=== PATIENT | female | born 1945 | race American Indian/Alaskan Native ===

== ENCOUNTER 2016-09-06 | Emergency (ER) | payer MEDICARE ==
[2016-09-06 00:30] VITALS: BP 130/60
--- NOTE | 2016-09-06 01:13 | EDM.PDOC ---
ED HPI Trauma - General Chief Complaint: Upper Extremity Injury/Pain Stated Complaint: LT WRIST PAIN Time Seen by Provider: 09/06/16 00:38 Source: Reports: Patient History Limitations: Reports: No limitations - History of Present Illness INITIAL COMMENTS - FREE TEXT/NARRATIVE: History of present illness: [71-year-old comes in after falling onto an outstretched left hand and arm and has an obvious deformity to her left wrist. No other injuries. I detect that smell of alcohol on her.] Review of systems: As per history of present illness and below otherwise all systems reviewed and negative. Past medical history: As per history of present illness and as reviewed below otherwise noncontributory. Surgical history: As per history of present illness and as reviewed below otherwise noncontributory. Family history: As per history of present illness and as reviewed below otherwise noncontributory. Physical exam: HEENT: Atraumatic, normocephalic, pupils reactive, negative for conjunctival pallor or scleral icterus, mucous membranes moist, throat clear, neck supple, nontender, trachea midline. Lungs: Clear to auscultation, breath sounds equal bilaterally Heart: S1S2, regular Abdomen: Soft, nondistended, nontender. Pelvis: Stable nontender. Genitourinary: Deferred. Rectal: Deferred. Extremities: The left wrist is swelling and appears deformed and is tender to palpation but distally she has CMS intact her fingers are pink and she moves them and has sensation. Neuro: Awake, alert, oriented. Cranial nerves II through XII unremarkable. Cerebellum unremarkable. Motor and sensory unremarkable throughout. Exam nonfocal. Diagnostics: [X-rays of the left wrist reveal a comminuted intra-articular fracture of the distal radius and also the ulna] Therapeutics: [] Impression: [Fracture left] Plan: [She's been splinted in put in a sling and she will be following up in the orthopedic clinic tomorrow we'll put her on the clinic sheet] Definitive disposition and diagnosis as appropriate pending reevaluation and review of above. 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: Psychiatric History: Reports: Depression - Infectious Disease History Infectious Disease History: Reports: Chicken pox - Past Surgical History Musculoskeletal Surgical History: Reports: Hip replacement Social & Family History - Tobacco Use Smoking Status *Q: Current Every Day Smoker Years of Tobacco use: 30 Packs/Tins Daily: 0.5 Second Hand Smoke Exposure: Yes - Caffeine Use Caffeine Use: Reports: Coffee - Alcohol Use Days Per Week of Alcohol Use: 0 Number of Drinks Per Day: 6 Total Drinks Per Week: 0 - Recreational Drug Use Recreational Drug Use: No Review of Systems - Review of Systems Review Of Systems: ROS reveals no pertinent complaints other than HPI. Trauma Exam - Physical Exam Exam: See Below Course - Vital Signs Last Recorded V/S: Last Vital Signs Temp 35.7 C 09/06/16 00:28 Pulse 60 09/06/16 00:28 Resp 14 09/06/16 00:28 BP 130/60 09/06/16 00:28 Pulse Ox 96 09/06/16 00:28 - Orders/Labs/Meds Orders: Active Orders 24 hr Category Date Time Status Wrist Comp Min 3V Lt [CR] Stat Exams 09/06/16 00:38 Taken Departure - Departure Time of Disposition: 01:12 Disposition: Home, Self-Care 01 Condition: good Clinical Impression: Fracture of left wrist Qualifiers: Encounter type: initial encounter Fracture type: closed Qualified Code(s): S62.102A - Fracture of unspecified carpal bone, left wrist, initial encounter for closed fracture Forms: ED Department Discharge Additional Instructions: Someone should call you tomorrow and get you into the orthopedic clinic who can receive definitive care for your fracture - My Orders Last 24 Hours: My Active Orders 09/06/16 00:38 Wrist Comp Min 3V Lt [CR] Stat - Assessment/Plan Last 24 Hours: My Active Orders 09/06/16 00:38 Wrist Comp Min 3V Lt [CR] Stat
--- NOTE | 2016-09-06 09:14 | CR ---
Intra-articular distal radius fracture. Mild dorsal angulation. Ulnar styloid process fracture with 2 fracture fragments. Chondrocalcinosis.
== END 2016-09-06 01:25 | disposition home or self-care (01) ==
LOC: JP.ED
DX: S62.102A Fracture of unspecified carpal bone, left wrist, initial encounter for closed fracture (principal); I10 Essential (primary) hypertension; F17.210 Nicotine dependence, cigarettes, uncomplicated; Z79.899 Other long term (current) drug therapy; Z91.048 Other nonmedicinal substance allergy status; Z96.649 Presence of unspecified artificial hip joint; W19.XXXA Unspecified fall, initial encounter
CPT/HCPCS: 73110-26-LT; 73110-LT; 99283; 99284

== ENCOUNTER 2016-12-30 17:36 | Emergency (ER) | payer MEDICARE ==
[2016-12-30 18:14] VITALS: BP 147/93
[2016-12-30] MEDS ORDERED: Sodium Chloride 0.9% 10 ML Syringe FLUSH PRN (19:19)
--- NOTE | 2016-12-30 19:27 | EDM.PDOC ---
ED HPI GENERAL MEDICAL PROBLEM - General Chief Complaint: Abdominal Pain Stated Complaint: ABD PAIN Time Seen by Provider: 12/30/16 19:00 Source of Information: Reports: Patient History Limitations: Reports: No Limitations - History of Present Illness INITIAL COMMENTS - FREE TEXT/NARRATIVE: Ale presents to the ER [place] with complaints of abdominal pain. She reports the pain comes in waves, waxes and wanes and is severe at times. She reports last BM this morning, hard and firm, small amount. She states she has not been passing flatus, however feels like she needs to. She denies fever, chills, nausea or vomiting. Onset: Today, Gradual Duration: Hour(s):, Waxing/Waning Location: Reports: Abdomen Quality: Reports: Ache, Pressure Severity: Severe Improves with: Reports: None Worsens with: Reports: Movement Associated Symptoms: Reports: Loss of Appetite. Denies: Fever/Chills, Headaches , Malaise, Nausea/Vomiting, Shortness of Breath, Syncope, Weakness Abdomen Pain Score (Numeric/FACES): 3 - Related Data Allergies Allergy/AdvReac Type Severity Reaction Status Date / Time nickel Allergy Swelling Uncoded 09/06/16 00:31 pollen Allergy Difficulty Uncoded 09/06/16 00:31 Breathing Home Meds: Home Meds Lisinopril 10 mg PO DAILY 08/14/15 [History] [place]-3 Fatty Acids [Fish Oil] 500 mg PO DAILY 08/14/15 [History] Omeprazole 20 mg PO DAILY 01/03/16 [History] Past Medical History HEENT History: Reports: Impaired Vision Cardiovascular History: Reports: Hypertension 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: Psychiatric History: Reports: Depression - Infectious Disease History Infectious Disease History: Reports: Chicken Pox - Past Surgical History Musculoskeletal Surgical History: Reports: Hip Replacement Social & Family History - Tobacco Use Smoking Status *Q: Current Every Day Smoker Years of Tobacco use: 30 Packs/Tins Daily: 0.5 Second Hand Smoke Exposure: Yes - Caffeine Use Caffeine Use: Reports: Coffee - Alcohol Use Days Per Week of Alcohol Use: 0 Number of Drinks Per Day: 6 Total Drinks Per Week: 0 - Recreational Drug Use Recreational Drug Use: No ED ROS GENERAL - Review of Systems Review Of Systems: See Below Constitutional: Denies: Fever, Chills, Malaise, Weakness, Night Sweats, Diaphoresis, Decreased Appetite HEENT: Reports: No Symptoms Respiratory: Denies: Shortness of Breath, Wheezing, Pleuritic Chest Pain, Cough , Sputum Cardiovascular: Denies: Chest Pain, Dyspnea on Exertion, Edema, Lightheadedness , Orthopnea, Palpitations, PND, Syncope Endocrine: Reports: No Symptoms GI/Abdominal: Reports: Abdominal Pain, Constipation, Decreased Appetite, Distension. Denies: Black Stool, Bloody Stool, Diarrhea, Difficulty Swallowing , Flatus, Hematemesis, Hematochezia, Nausea, Stool Incontinence, Vomiting : Denies: Dysuria, Flank Pain, Frequency, Hematuria, Incontinence, Pain, Urgency, Urinary Retention Musculoskeletal: Denies: Joint Pain, Joint Swelling, Muscle Pain, Muscle Stiffness Skin: Denies: Cyanosis, Jaundice, Diaphoresis, Bruising, Pruritis, Rash, Erythema, Wound Neurological: Denies: Confusion, Dizziness, Headache, Numbness, Paresthesia, Syncope, Tingling, Weakness, Gait Disturbance Psychiatric: Denies: Agitation, Anxiety, Mood Lability Hematologic/Lymphatic: Reports: No Symptoms Immunologic: Reports: No Symptoms ED EXAM, GI/ABD - Physical Exam Exam: See Below Text/Narrative:: Ale is a 71 year old female with complaints of constipation and difficulty having a BM. She reports she last had a BM this am that was small and hard. She states the one before that was 3 to 5 days. She denies fever, chills, nausea or vomiting. She reports cramping and gas like pains to abdomen. Exam Limited By: No Limitations General Appearance: Alert, WD/WN, No Apparent Distress Eyes: Bilateral: Normal Appearance (Pupils 2mm reactive), EOMI Ears: Normal External Exam, Normal Canal, Hearing Grossly Normal, Normal TMs Nose: Normal Inspection, Normal Mucosa, No Blood Throat/Mouth: Normal Inspection, Normal Lips, Normal Teeth, Normal Gums, Normal Oropharynx, Normal Voice, No Airway Compromise Head: Atraumatic, Normocephalic Neck: Normal Inspection, Supple, Non-Tender, Full Range of Motion. No: Lymphadenopathy (R), Lymphadenopathy (L) Respiratory/Chest: No Respiratory Distress, Lungs Clear, Normal Breath Sounds, No Accessory Muscle Use, Chest Non-Tender Cardiovascular: Normal Peripheral Pulses, Regular Rate, Rhythm, No Edema, No Gallop, No Murmur, No Rub GI/Abdominal: Normal Bowel Sounds, Soft, No Distention, Tenderness, Guarding. No: McBurney's Sign, Garibay's Sign Neurological: Alert, Oriented, CN II-XII Intact, Normal Cognition, Normal Gait, No Motor/Sensory Deficits Psychiatric: Other (Angry affect. ) Skin Exam: Warm, Dry, Intact, Normal Color, No Rash Course - Vital Signs Last Recorded V/S: Last Vital Signs Temp 36.7 C 12/30/16 18:12 Pulse 58 L 12/30/16 18:12 Resp 20 12/30/16 18:12 BP 147/93 H 12/30/16 18:12 Pulse Ox 94 L 12/30/16 18:12 - Orders/Labs/Meds Orders: Active Orders 24 hr Category Date Time Status Abdomen Pelvis w Cont [CT] Stat Exams 12/30/16 19:19 Ordered Saline Lock Insert [OM.PC] Routine Oth 12/30/16 19:19 Ordered Meds: Medications Discontinued Medications Generic Name Dose Route Start Last Admin Trade Name Freq PRN Reason Stop Dose Admin Sodium Chloride 1,000 mls @ 500 mls/hr 12/30/16 19:30 Normal Saline IV ASDIRECTED ETELVINA Sodium Chloride 10 ml 12/30/16 19:19 Saline Flush FLUSH ASDIRECTED PRN Keep Vein Open - Re-Assessments/Exams Free Text/Narrative Re-Assessment/Exam: 12/30/16 19:37 Patient informed nurse she did not want to leave. This provider informed patient that she was at risk for worsening of illness/ injury without proper medical work-up. Patient stated, "I am okay I'm gong home ". Attempted to talk patient into staying and being evaluated. She declined x 3. She refused to sign AMA form. Patient left ER ambulating without difficulty. Departure - Departure Time of Disposition: 19:37 Disposition: Against Medical Advice 07 Clinical Impression: Left against medical advice - Discharge Information Referrals: PCP,None [Primary Care Provider] - Forms: ED Department Discharge - My Orders Last 24 Hours: My Active Orders 12/30/16 19:19 Abdomen Pelvis w Cont [CT] Stat Saline Lock Insert [OM.PC] Routine - Assessment/Plan Last 24 Hours: My Active Orders 12/30/16 19:19 Abdomen Pelvis w Cont [CT] Stat Saline Lock Insert [OM.PC] Routine
[2016-12-30] MEDS ORDERED: Sodium Chloride 0.9% 1,000 ML IV SCH (19:30)
== END 2016-12-30 19:38 | disposition left against medical advice (07) ==
LOC: JP.ED 17:36
DX: R10.9 Unspecified abdominal pain (principal); Z53.21 Procedure and treatment not carried out due to patient leaving prior to being seen by health care provider; Z96.649 Presence of unspecified artificial hip joint; Z91.048 Other nonmedicinal substance allergy status; F17.210 Nicotine dependence, cigarettes, uncomplicated; H54.7 Unspecified visual loss; Z79.899 Other long term (current) drug therapy
CPT/HCPCS: 99283; 99284

== ENCOUNTER 2017-09-08 05:51 | Day surgery (SDC) | payer MEDICARE ==
[2017-09-08] MEDS ORDERED: Glycopyrrolate 0.2 MG/ML 2 ML SDV IVPUSH ONE (06:30)
[2017-09-08] MEDS ORDERED: Cyanocobalamin (Vitamin B12) 1,000 MCG/ML SDV IM ONE (06:30)
[2017-09-08] MEDS ORDERED: Lactated Ringers 1,000 ML IV ONE (06:30)
[2017-09-08] MEDS ORDERED: Propofol 200 MG/20 ML SDV ONE (07:00)
[2017-09-08] MEDS ORDERED: fentaNYL 100 MCG/2 ML SDV ONE (07:00)
[2017-09-08] MEDS ORDERED: Pantoprazole 40 MG Vial IVPUSH ONE (07:28)
[2017-09-08] MEDS ORDERED: MVI, Adult with Vitamin K 10 ML, Thiamine 100 MG, Chromium/Copper/Mang/Selen/Zn 1 ML in... IV ONE ×4 (07:30)
[2017-09-08 10:25] VITALS: BP 160/83
--- NOTE | 2017-09-17 17:22 | OR ---
DATE OF PROCEDURE: 09/08/2017 PREOPERATIVE DIAGNOSIS: Dysphagia, status post Beverly-en-Y gastric bypass. POSTOPERATIVE DIAGNOSIS: Dysphagia, status post Beverly-en-Y gastric bypass secondary to large marginal ulcer. OPERATIVE PROCEDURE: Upper GI endoscopy with biopsies of gastric pouch for CLOtest. ANESTHESIA: IV sedation. INDICATION FOR PROCEDURE: The patient is several years status post [place]-en-Y gastric bypass with generally good result. Recently, she has had increasing problems with dysphagia referable to the area at the distal esophagus to gastric pouch. The plan is to proceed with an upper GI endoscopy with biopsies and/or dilation as indicated. Potential risks including bleeding and perforation were discussed, and the patient wishes to proceed. DETAILS OF PROCEDURE: The patient was taken to the operating room and placed in a left lateral decubitus position. IV sedation was administered, after which the upper GI endoscope was passed orally through the length of the esophagus, into the area of the gastric pouch. Up to that point, the endoscopic findings were normal, however, at the gastric pouch, the patient was noted to have a large deep marginal ulcer beginning immediately at the gastrojejunostomy and extending into the jejunum. This was roughly 1.5 or 2 cm in length and fairly deep, covered presently with fibrinous exudate. The scope could be passed through that gastrojejunostomy into the Beverly limb and it was felt that dilation would not be beneficial and it would also be somewhat risky in terms of potential perforation or bleeding. Biopsies were then obtained from the pouch and sent for CLOtest for H. pylori. Minimal bleeding from the biopsy site was seen. The procedure then concluded. Plan will be to give the patient Protonix 40 mg IV in the recovery room and then begin Protonix 40 mg daily. We will plan to proceed with a repeat upper endoscopy in 3 weeks to ascertain the extent to which the ulcer has healed with or without the lack of stricturing. Brian Jones MD /[id number]
== END 2017-09-08 10:30 | disposition home or self-care (01) ==
LOC: JP.SDS 05:51
PROVIDERS: ATTEND Surgery
DX: K28.9 Gastrojejunal ulcer, unspecified as acute or chronic, without hemorrhage or perforation (principal); J45.909 Unspecified asthma, uncomplicated; I10 Essential (primary) hypertension; K21.9 Gastro-esophageal reflux disease without esophagitis; E11.9 Type 2 diabetes mellitus without complications; Z98.84 Bariatric surgery status; Z91.048 Other nonmedicinal substance allergy status; J30.1 Allergic rhinitis due to pollen
CPT/HCPCS: 43239; 87081; C9113; J2704; J3010; J3411; J3420; J7120; J3490

== ENCOUNTER 2017-11-03 05:24 | Day surgery (SDC) | payer MEDICARE ==
[2017-11-03] MEDS ORDERED: Lactated Ringers 1,000 ML IV ONE (06:00)
[2017-11-03] MEDS ORDERED: Cyanocobalamin (Vitamin B12) 1,000 MCG/ML SDV IM ONE (06:00)
[2017-11-03] MEDS ORDERED: Glycopyrrolate 0.2 MG/ML 2 ML SDV IVPUSH ONE (06:00)
[2017-11-03] MEDS ORDERED: MVI, Adult with Vitamin K 10 ML, Thiamine 100 MG, Chromium/Copper/Mang/Selen/Zn 1 ML in... IV ONE ×4 (07:00)
[2017-11-03] MEDS ORDERED: Propofol 200 MG/20 ML SDV ONE (07:03)
[2017-11-03] MEDS ORDERED: fentaNYL 100 MCG/2 ML SDV ONE (07:03)
[2017-11-03] MEDS ORDERED: Pantoprazole 40 MG Vial IVPUSH ONE (07:40)
[2017-11-03 10:54] VITALS: BP 128/71
--- NOTE | 2017-11-12 09:06 | OR ---
DATE OF PROCEDURE: 11/03/2017 PREOPERATIVE DIAGNOSIS: Recently identified marginal ulcer at the gastrojejunostomy. 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 OPERATIVE PROCEDURE: Upper GI endoscopy with, 1. Dilation of the gastrojejunostomy, (77557). 2. Biopsies of gastric pouch for CLOtest, ([id number]). ANESTHESIA: IV sedation. INDICATION FOR PROCEDURE: This is a 72-year-old presenting with history of dysphagia, diagnosed marginal ulcer on 09/08/2017, at her gastrojejunostomy. She was supposed to have been placed on Protonix, but apparently only received treatment for a week and presents now for a followup upper GI endoscopy with biopsies and/or dilation as indicated. Potential risks including bleeding and perforation were discussed, and the patient wishes to proceed. DETAILS OF PROCEDURE: The patient was taken to the operating room and placed in a left lateral decubitus position. IV sedation was administered, after which the upper GI endoscope was passed orally through the length of the esophagus and into the gastric pouch. The patient was noted to have a quite tight stricture at gastrojejunostomy with quite extensive inflammation present as well, consistent with persistence of marginal ulcer and interval development of a fairly tight stricture of the gastrojejunostomy. Initially, a Bard gastrointestinal catheter was centered across the anastomosis and inflated to 36-[place]namese size. This was held in position for 1 minute after which the scope could be passed through the anastomosis. Biopsies were then obtained from the gastric pouch and sent for CLOtest for H pylori. Minimal bleeding from the biopsy sites was seen and the procedure then concluded. The patient will be given Protonix 40 IV in the recovery room and started on Protonix 40 mg daily. We will try to make as certain as possible that these instructions are followed up on. Otherwise, she will be set up to see Jessica Fitzgerald in [facility] on 11/19/2017, and will proceed with a repeat upper endoscopy on 11/24/2017, to see if the ulcer and stricturing are under control with Protonix. Brian Jones MD /[id number]
== END 2017-11-03 09:40 | disposition home or self-care (01) ==
LOC: JP.SDS 05:24
PROVIDERS: ATTEND Surgery
DX: K28.9 Gastrojejunal ulcer, unspecified as acute or chronic, without hemorrhage or perforation (principal); K91.89 Other postprocedural complications and disorders of digestive system; I10 Essential (primary) hypertension; J45.909 Unspecified asthma, uncomplicated; E11.9 Type 2 diabetes mellitus without complications; K21.9 Gastro-esophageal reflux disease without esophagitis; Z91.048 Other nonmedicinal substance allergy status
CPT/HCPCS: 43239; 43245; 87081; C9113; J2704; J3010; J3411; J3420; J7120; J3490

== ENCOUNTER 2017-11-30 17:20 | Emergency (ER) | payer MEDICARE ==
[2017-11-30] MEDS ORDERED: Acetaminophen 500 MG Tab PO ONE (18:37)
--- NOTE | 2017-11-30 18:43 | EDM.PDOC ---
ED HPI GENERAL MEDICAL PROBLEM - General Chief Complaint: Cardiovascular Problem Stated Complaint: SWEELING IN LEGS Time Seen by Provider: 11/30/17 18:25 Source of Information: Reports: Patient, Old Records, RN History Limitations: Reports: No Limitations - History of Present Illness INITIAL COMMENTS - FREE TEXT/NARRATIVE: 72 yo NA female was recently seen in the clinic for LE edema and was given furosemide. She didn't like the way it made her feel so she stopped it. Now her legs are more swollen and she has a dry cough. Was unaware until arrival of the presence of a fever. Has no urinary sx's, no abdominal pain, no rash, no sore throat, no SOB, and a mild TAVARES. No known exposures. Onset: Gradual Duration: Day(s):, Getting Worse Location: Reports: Head, Chest, Lower Extremity, Left, Lower Extremity, Right Quality: Reports: Ache (headache, mild) Severity: Mild Improves with: Reports: None Worsens with: Reports: Other (? time) Context: Reports: Other (uncertain) Associated Symptoms: Reports: Cough (dry), Fever/Chills (was unaware until arrival.), Headaches (mild). 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) - Related Data Allergies Allergy/AdvReac Type Severity Reaction Status Date / Time nickel Allergy Swelling Uncoded 11/30/17 18:19 pollen Allergy Difficulty Uncoded 11/30/17 18:19 Breathing Home Meds: Home Meds Lisinopril 10 mg PO DAILY 08/14/15 [History] [place]-3 Fatty Acids [Fish Oil] 500 mg PO DAILY 08/14/15 [History] Calcium Carbonate [Tums Extra Strength] 1,500 mg PO BID 09/04/17 [History] Cholecalciferol (Vitamin D3) [Vitamin D3] 5,000 unit PO DAILY 09/04/17 [History] Cyanocobalamin (Vitamin B-12) [Vitamin B-12] 1,000 mcg PO DAILY 09/04/17 [ History] Docusate Sodium/Sennosides [Senokot-S] 2 tab PO BID 09/04/17 [History] Ferrous Fumarate/Vitamin C [Vitron-C] 125 - 200 mg PO DAILY 09/04/17 [History] Magnesium Hydroxide [Milk of Magnesia] 30 ml PO BEDTIME 09/04/17 [History] Multivitamin with Minerals [Multiple Vitamin] 2 tab PO DAILY 09/04/17 [History] Thiamine HCl [Vitamin B-1] 100 mg PO DAILY 09/04/17 [History] Triamcinolone Acetonide [Triamcinolone Acetonide 0.1% Crm] 1 applic TOP TID PRN 09/04/17 [History] Trolamine Salicylate [Aspercreme] 1 applic TOP DAILY 09/04/17 [History] prednisoLONE Acetate [Pred Forte 1% Ophth Susp] 3 drop EARBOTH DAILY 09/04/17 [ History] traMADol HCl [Tramadol HCl] 50 mg PO BID PRN 09/04/17 [History] Potassium Chloride [K-Tab ER] 20 meq PO TID 09/25/17 [History] Benzonatate 200 mg PO TID 10/30/17 [History] Pantoprazole Sodium [Protonix] 40 mg PO DAILY 11/20/17 [History] Vitamin B Complex [B Complex] 1 tab PO DAILY 11/20/17 [History] Ciprofloxacin [Ciprofloxacin HCl] 250 mg PO BID #14 tablet 11/30/17 [Rx] HCTZ/Triamterene [Dyazide 25-37.5 MG] 1 each PO ASDIRECTED #14 cap 11/30/17 [Rx] Past Medical History HEENT History: Reports: Impaired Vision Other HEENT History: reading glasses Cardiovascular History: Reports: High Cholesterol, Hypertension Respiratory History: Reports: Asthma Gastrointestinal History: Reports: Chronic Constipation, GERD Genitourinary History: Reports: None 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: Musculoskeletal History: Reports: Back Pain, Chronic Psychiatric History: Reports: Depression Endocrine/Metabolic History: Reports: Diabetes, Type II Hematologic History: Reports: B12 Deficiency - Infectious Disease History Infectious Disease History: Reports: Chicken Pox - Past Surgical History HEENT Surgical History: Reports: Cataract Surgery, Other (See Below) Other HEENT Surgeries/Procedures: ear surgery Cardiovascular Surgical History: Reports: None Respiratory Surgical History: Reports: None GI Surgical History: Reports: Bariatric Procedure, Cholecystectomy, Colonoscopy , Other (See Below) Other GI Surgeries/Procedures: gastrectomy Female Surgical History: Reports: Hysterectomy, Salpingo-Oophorectomy Endocrine Surgical History: Reports: None Musculoskeletal Surgical History: Reports: Hip Replacement Dermatological Surgical History: Reports: None Social & Family History - Family History Family Medical History: Noncontributory - Tobacco Use Smoking Status *Q: Never Smoker - Caffeine Use Caffeine Use: Reports: Coffee ED ROS GENERAL - Review of Systems Review Of Systems: See Below Constitutional: Reports: Fever (not aware), Chills HEENT: Reports: No Symptoms Respiratory: Reports: Cough (dry). Denies: Shortness of Breath, Wheezing, Pleuritic Chest Pain, Sputum, Hemoptysis Cardiovascular: Reports: No Symptoms, Edema (both legs below the knees.), Other (no orthopnea) GI/Abdominal: Reports: No Symptoms : Reports: No Symptoms Musculoskeletal: Reports: No Symptoms Skin: Reports: No Symptoms Neurological: Reports: No Symptoms Psychiatric: Reports: No Symptoms ED EXAM, GENERAL - Physical Exam Exam: See Below Exam Limited By: No Limitations General Appearance: Alert, WD/WN, No Apparent Distress Eye Exam: Bilateral Eye: Normal Inspection Ears: Normal External Exam, Normal Canal, Hearing Grossly Normal, Normal TMs Ear Exam: Bilateral Ear: Auricle Normal, Canal Normal, TM normal Nose: Normal Inspection, Normal Mucosa, No Blood Throat/Mouth: Normal Inspection, Normal Lips, Normal Oropharynx, Normal Voice, No Airway Compromise Head: Atraumatic, Normocephalic Neck: Normal Inspection, Supple Respiratory/Chest: No Respiratory Distress, Lungs Clear, Normal Breath Sounds, No Accessory Muscle Use Cardiovascular: Regular Rate, Rhythm, No Edema GI/Abdominal: Normal Bowel Sounds, Soft, Non-Tender, No Distention Back Exam: Normal Inspection. No: CVA Tenderness (R), CVA Tenderness (L) Extremities: Normal Inspection, Normal Range of Motion, Pedal Edema (both legs below the knees, pitting, 1+). No: No Pedal Edema, Limited Range of Motion, Redness Neurological: Alert, Oriented, CN II-XII Intact, Normal Cognition, No Motor/ Sensory Deficits Psychiatric: Normal Affect, Normal Mood Skin Exam: Warm, Dry, Intact, Normal Color, No Rash Lymphatic: No Adenopathy Course - Vital Signs Last Recorded V/S: Last Vital Signs Temp 37.7 C 11/30/17 20:10 Pulse 86 11/30/17 20:10 Resp 15 11/30/17 18:27 BP 137/62 11/30/17 20:22 Pulse Ox 96 11/30/17 20:10 - Orders/Labs/Meds Orders: Active Orders 24 hr Category Date Time Status CALCIUM, IONIZED, SERUM Routine Lab 11/30/17 19:27 Ordered CULTURE URINE [RM] Stat Lab 11/30/17 20:40 Ordered HEPATIC FUNCTION PANEL,HFP [CHEM] Stat Lab 11/30/17 20:43 Ordered PTH, INTACT Routine Lab 11/30/17 19:45 Received UA W/MICROSCOPIC [URIN] Stat Lab 11/30/17 20:09 Ordered VITAMIN D,25-HYDROXY [CHEM] Stat Lab 11/30/17 19:25 Ordered Telmisartan [Micardis] Med 11/30/17 20:15 Active 40 mg PO DAILY Medication Orders Telmisartan (Micardis) 40 mg PO DAILY ETELVINA Last Admin: 11/30/17 20:22 Dose: 40 mg Labs: Laboratory Tests 11/30/17 11/30/17 11/30/17 Range/Units 18:47 18:47 19:23 WBC 9.9 (4.5-11.0) K/uL RBC 3.64 (3.30-5.50) M/uL Hgb 10.8 L (12.0-15.0) g/dL Hct 32.9 L (36.0-48.0) % MCV 90 (80-98) fL MCH 30 (27-31) pg MCHC 33 (32-36) % Plt Count 256 (150-400) K/uL ESR (0-25) mm/hr Sodium 140 (140-148) mmol/L Potassium 3.5 L (3.6-5.2) mmol/L Chloride 106 (100-108) mmol/L Carbon Dioxide 25 (21-32) mmol/L Anion Gap 12.5 (5.0-14.0) mmol/L BUN 12 (7-18) mg/dL Creatinine 0.7 (0.6-1.0) mg/dL Est Cr Clr Drug Dosing 68.57 mL/min Estimated GFR (MDRD) > 60 (>60) Glucose 142 H (74-106) mg/dL Calcium 6.9 L* (8.5-10.1) mg/dL Phosphorus (2.5-4.9) mg/dL Magnesium (1.8-2.4) mg/dL C-Reactive Protein 2.89 H (0.0-0.3) mg/dL Albumin 1.9 L (3.4-5.0) g/dL Urine Color Urine Appearance Urine pH (4.5-8.0) Ur Specific [place] (1.008-1.030) Urine Protein (NEGATIVE) mg/dL Urine Glucose (UA) (NEGATIVE) mg/dL Urine Ketones (NEGATIVE) mg/dL Urine Occult Blood (NEGATIVE) Urine Nitrite (NEGATIVE) Urine Bilirubin (NEGATIVE) Urine Urobilinogen (NORMAL) mg/dL Ur Leukocyte Esterase (NEGATIVE) Urine RBC (0-5) Urine WBC (0-5) Ur Epithelial Cells Amorphous Sediment Urine Bacteria Urine Mucus 11/30/17 11/30/17 11/30/17 Range/Units 19:24 19:26 19:26 WBC (4.5-11.0) K/uL RBC (3.30-5.50) M/uL Hgb (12.0-15.0) g/dL Hct (36.0-48.0) % MCV (80-98) fL MCH (27-31) pg MCHC (32-36) % Plt Count (150-400) K/uL ESR 10 (0-25) mm/hr Sodium (140-148) mmol/L Potassium (3.6-5.2) mmol/L Chloride (100-108) mmol/L Carbon Dioxide (21-32) mmol/L Anion Gap (5.0-14.0) mmol/L BUN (7-18) mg/dL Creatinine (0.6-1.0) mg/dL Est Cr Clr Drug Dosing mL/min Estimated GFR (MDRD) (>60) Glucose (74-106) mg/dL Calcium (8.5-10.1) mg/dL Phosphorus 2.6 (2.5-4.9) mg/dL Magnesium 1.5 L (1.8-2.4) mg/dL C-Reactive Protein (0.0-0.3) mg/dL Albumin (3.4-5.0) g/dL Urine Color Urine Appearance Urine pH (4.5-8.0) Ur Specific [place] (1.008-1.030) Urine Protein (NEGATIVE) mg/dL Urine Glucose (UA) (NEGATIVE) mg/dL Urine Ketones (NEGATIVE) mg/dL Urine Occult Blood (NEGATIVE) Urine Nitrite (NEGATIVE) Urine Bilirubin (NEGATIVE) Urine Urobilinogen (NORMAL) mg/dL Ur Leukocyte Esterase (NEGATIVE) Urine RBC (0-5) Urine WBC (0-5) Ur Epithelial Cells Amorphous Sediment Urine Bacteria Urine Mucus 11/30/17 Range/Units 20:09 WBC (4.5-11.0) K/uL RBC (3.30-5.50) M/uL Hgb (12.0-15.0) g/dL Hct (36.0-48.0) % MCV (80-98) fL MCH (27-31) pg MCHC (32-36) % Plt Count (150-400) K/uL ESR (0-25) mm/hr Sodium (140-148) mmol/L Potassium (3.6-5.2) mmol/L Chloride (100-108) mmol/L Carbon Dioxide (21-32) mmol/L Anion Gap (5.0-14.0) mmol/L BUN (7-18) mg/dL Creatinine (0.6-1.0) mg/dL Est Cr Clr Drug Dosing mL/min Estimated GFR (MDRD) (>60) Glucose (74-106) mg/dL Calcium (8.5-10.1) mg/dL Phosphorus (2.5-4.9) mg/dL Magnesium (1.8-2.4) mg/dL C-Reactive Protein (0.0-0.3) mg/dL Albumin (3.4-5.0) g/dL Urine Color [place] Urine Appearance Cloudy Urine pH 6.5 (4.5-8.0) Ur Specific [place] 1.010 (1.008-1.030) Urine Protein Negative (NEGATIVE) mg/dL Urine Glucose (UA) Normal (NEGATIVE) mg/dL Urine Ketones Negative (NEGATIVE) mg/dL Urine Occult Blood Moderate (NEGATIVE) Urine Nitrite Positive H (NEGATIVE) Urine Bilirubin Small (NEGATIVE) Urine Urobilinogen >=12 H (NORMAL) mg/dL Ur Leukocyte Esterase Large (NEGATIVE) Urine RBC 5-10 H (0-5) Urine WBC Packed H (0-5) Ur Epithelial Cells Moderate Amorphous Sediment Moderate Urine Bacteria Many Urine Mucus Moderate Meds: Medications Generic Name Dose Route Start Last Admin Trade Name Freq PRN Reason Stop Dose Admin Telmisartan 40 mg 11/30/17 20:15 11/30/17 20:22 Micardis PO 40 mg DAILY ETELVINA Administration Discontinued Medications Generic Name Dose Route Start Last Admin Trade Name Blanca PRN Reason Stop Dose Admin Acetaminophen 1,000 mg 11/30/17 18:37 11/30/17 19:16 Tylenol Extra Strength PO 11/30/17 18:38 1,000 mg ONETIME ONE Administration Ciprofloxacin 500 mg 11/30/17 20:40 Ciprofloxacin Hcl PO 11/30/17 20:41 ONETIME ONE Guaifenesin/Codeine Phosphate 10 ml 11/30/17 19:35 Robitussin Ac PO 11/30/17 19:36 ONETIME ONE Guaifenesin/Codeine Phosphate 10 ml 11/30/17 19:59 11/30/17 20:12 Robitussin Ac PO 11/30/17 20:00 10 ml ONETIME ONE Administration Guaifenesin/Codeine Phosphate Confirm 11/30/17 20:00 Robitussin Ac Administered 11/30/17 20:01 Dose 10 ml .ROUTE .STK-MED ONE Magnesium Oxide 400 mg 11/30/17 20:00 11/30/17 20:12 Magnesium Oxide PO 11/30/17 20:01 400 mg ONETIME ONE Administration Potassium Chloride 20 meq 11/30/17 20:01 11/30/17 20:12 Potassium Chloride PO 11/30/17 20:02 20 meq ONETIME ONE Administration Departure - Departure Time of Disposition: 20:47 Disposition: Home, Self-Care 01 Condition: Fair Clinical Impression: Cough, Hypoalbuminemia UTI (urinary tract infection) Qualifiers: Urinary tract infection type: site unspecified Hematuria presence: without hematuria Qualified Code(s): N39.0 - Urinary tract infection, site not specified Prescriptions: Ciprofloxacin [Ciprofloxacin HCl] 250 mg PO BID #14 tablet Telmisartan/Hydrochlorothiazid [Micardis Hct 40-12.5 mg Tablet] 1 each PO DAILY #30 tablet Referrals: Kulwant Abraham NP [Primary Care Provider] - Forms: ED Department Discharge - My Orders Last 24 Hours: My Active Orders 11/30/17 19:25 VITAMIN D,25-HYDROXY [CHEM] Stat 11/30/17 19:27 CALCIUM, IONIZED, SERUM Routine 11/30/17 19:45 PTH, INTACT Routine 11/30/17 20:09 UA W/MICROSCOPIC [URIN] Stat 11/30/17 20:15 Telmisartan [Micardis] 40 mg PO DAILY 11/30/17 20:40 CULTURE URINE [RM] Stat 11/30/17 20:43 HEPATIC FUNCTION PANEL,HFP [CHEM] Stat - Assessment/Plan Last 24 Hours: My Active Orders 11/30/17 19:25 VITAMIN D,25-HYDROXY [CHEM] Stat 11/30/17 19:27 CALCIUM, IONIZED, SERUM Routine 11/30/17 19:45 PTH, INTACT Routine 11/30/17 20:09 UA W/MICROSCOPIC [URIN] Stat 11/30/17 20:15 Telmisartan [Micardis] 40 mg PO DAILY 11/30/17 20:40 CULTURE URINE [RM] Stat 11/30/17 20:43 HEPATIC FUNCTION PANEL,HFP [CHEM] Stat
[2017-11-30] MEDS ORDERED: Codeine/guaiFENesin 100mg-10 MG/5 ML Syrup 10 ML Cup PO ONE ×2 (19:35→19:59)
[2017-11-30] MEDS ORDERED: Magnesium Oxide 400 MG Tab PO ONE (20:00)
[2017-11-30] MEDS ORDERED: Codeine/guaiFENesin 100mg-10 MG/5 ML Syrup 10 ML Cup ONE (20:00)
[2017-11-30] MEDS ORDERED: Potassium Chloride 10 MEQ Cap.ER PO ONE (20:01)
[2017-11-30 20:12] VITALS: BP 137/62
[2017-11-30] MEDS ORDERED: Ciprofloxacin 500 MG Tab PO ONE (20:40)
== END 2017-11-30 21:06 | disposition home or self-care (01) ==
LOC: JP.ED 17:20
DX: N39.0 Urinary tract infection, site not specified (principal); E88.09 Other disorders of plasma-protein metabolism, not elsewhere classified; I10 Essential (primary) hypertension; K21.9 Gastro-esophageal reflux disease without esophagitis; E11.9 Type 2 diabetes mellitus without complications; Z91.048 Other nonmedicinal substance allergy status; Z79.899 Other long term (current) drug therapy
CPT/HCPCS: 36415; 80048; 80076; 81001; 82040; 82306; 83735; 84100; 85027; 85651; 86140; 87086; 87088; 87186; 99284; A9270; 83970

== ENCOUNTER 2017-12-04 16:09 | Emergency (ER) | payer MEDICARE ==
[2017-12-04 17:41] VITALS: BP 150/65
--- NOTE | 2017-12-04 18:29 | EDM.PDOC ---
ED HPI GENERAL MEDICAL PROBLEM - General Chief Complaint: General Stated Complaint: DIZZINESS Time Seen by Provider: 12/04/17 18:16 Source of Information: Reports: Patient, Family, Old Records, RN Notes Reviewed History Limitations: Reports: No Limitations - History of Present Illness INITIAL COMMENTS - FREE TEXT/NARRATIVE: 72-year-old female presents to the emergency department today with complaint of dizziness and leg swelling, she was evaluated in the emergency department 3 days prior with complaint of leg swelling workup at that time did reveal reveal some hypocalcemia as well as hypoalbuminemia does have a history of starting on furosemide however stopped the medication because she did not like the way it made her feel. Also of note found to have a urinary tract infection due to Escherichia coli sensitive ciprofloxacin of which she is on - Related Data Allergies Allergy/AdvReac Type Severity Reaction Status Date / Time nickel Allergy Swelling Uncoded 12/04/17 17:51 pollen Allergy Difficulty Uncoded 12/04/17 17:51 Breathing Home Meds: Home Meds Lisinopril 10 mg PO DAILY 08/14/15 [History] [place]-3 Fatty Acids [Fish Oil] 500 mg PO DAILY 08/14/15 [History] Calcium Carbonate [Tums Extra Strength] 1,500 mg PO BID 09/04/17 [History] Cholecalciferol (Vitamin D3) [Vitamin D3] 5,000 unit PO DAILY 09/04/17 [History] Cyanocobalamin (Vitamin B-12) [Vitamin B-12] 1,000 mcg PO DAILY 09/04/17 [ History] Docusate Sodium/Sennosides [Senokot-S] 2 tab PO BID 09/04/17 [History] Ferrous Fumarate/Vitamin C [Vitron-C] 125 - 200 mg PO DAILY 09/04/17 [History] Magnesium Hydroxide [Milk of Magnesia] 30 ml PO BEDTIME 09/04/17 [History] Multivitamin with Minerals [Multiple Vitamin] 2 tab PO DAILY 09/04/17 [History] Thiamine HCl [Vitamin B-1] 100 mg PO DAILY 09/04/17 [History] Triamcinolone Acetonide [Triamcinolone Acetonide 0.1% Crm] 1 applic TOP TID PRN 09/04/17 [History] Trolamine Salicylate [Aspercreme] 1 applic TOP DAILY 09/04/17 [History] prednisoLONE Acetate [Pred Forte 1% Ophth Susp] 3 drop EARBOTH DAILY 09/04/17 [ History] traMADol HCl [Tramadol HCl] 50 mg PO BID PRN 09/04/17 [History] Potassium Chloride [K-Tab ER] 20 meq PO TID 09/25/17 [History] Benzonatate 200 mg PO TID 10/30/17 [History] Pantoprazole Sodium [Protonix] 40 mg PO DAILY 11/20/17 [History] Vitamin B Complex [B Complex] 1 tab PO DAILY 11/20/17 [History] Ciprofloxacin [Ciprofloxacin HCl] 250 mg PO BID #14 tablet 11/30/17 [Rx] HCTZ/Triamterene [Dyazide 25-37.5 MG] 1 each PO ASDIRECTED #14 cap 11/30/17 [Rx] Past Medical History HEENT History: Reports: Impaired Vision Other HEENT History: reading glasses Cardiovascular History: Reports: High Cholesterol, Hypertension Respiratory History: Reports: Asthma Gastrointestinal History: Reports: Chronic Constipation, GERD 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: Musculoskeletal History: Reports: Back Pain, Chronic Psychiatric History: Reports: Depression Endocrine/Metabolic History: Reports: Diabetes, Type II Hematologic History: Reports: B12 Deficiency - Infectious Disease History Infectious Disease History: Reports: Chicken Pox - Past Surgical History HEENT Surgical History: Reports: Cataract Surgery, Other (See Below) Other HEENT Surgeries/Procedures: ear surgery Cardiovascular Surgical History: Reports: None Respiratory Surgical History: Reports: None GI Surgical History: Reports: Bariatric Procedure, Cholecystectomy, Colonoscopy , Other (See Below) Other GI Surgeries/Procedures: gastrectomy Female Surgical History: Reports: Hysterectomy, Salpingo-Oophorectomy Endocrine Surgical History: Reports: None Musculoskeletal Surgical History: Reports: Hip Replacement Dermatological Surgical History: Reports: None Social & Family History - Family History Family Medical History: Noncontributory - Tobacco Use Smoking Status *Q: Never Smoker - Caffeine Use Caffeine Use: Reports: Coffee - Recreational Drug Use Recreational Drug Use: No ED ROS GENERAL - Review of Systems Review Of Systems: See Below Constitutional: Denies: Fever, Chills HEENT: Reports: No Symptoms Respiratory: Reports: No Symptoms Cardiovascular: Reports: Edema GI/Abdominal: Reports: No Symptoms : Reports: No Symptoms Musculoskeletal: Reports: No Symptoms Skin: Reports: No Symptoms Neurological: Reports: Dizziness ED EXAM, GENERAL - Physical Exam Exam: See Below Exam Limited By: No Limitations General Appearance: Alert, WD/WN, No Apparent Distress Eye Exam: Bilateral Eye: Normal Inspection, PERRL Ears: Normal External Exam, Normal Canal, Hearing Grossly Normal, Normal TMs Nose: Normal Inspection, Normal Mucosa, No Blood Throat/Mouth: Normal Inspection, Normal Lips, Normal Teeth, Normal Gums, Normal Oropharynx, Normal Voice, No Airway Compromise Head: Atraumatic, Normocephalic Neck: Normal Inspection, Supple, Non-Tender, Full Range of Motion Respiratory/Chest: No Respiratory Distress, No Accessory Muscle Use, Crackles Cardiovascular: Regular Rate, Rhythm, No Murmur GI/Abdominal: Soft, Non-Tender Extremities: Normal Range of Motion, Pedal Edema, Other (Small wound approximately 1 cm x 2 cm is appreciated on the left lower extremity) Course - Vital Signs Last Recorded V/S: Last Vital Signs Temp 97.2 F 12/04/17 17:38 Pulse 61 12/04/17 17:38 Resp 13 12/04/17 17:38 BP 150/65 H 12/04/17 17:38 Pulse Ox 98 12/04/17 17:38 - Orders/Labs/Meds Orders: Active Orders 24 hr Category Date Time Status UA W/MICROSCOPIC [URIN] Urgent Lab 12/04/17 19:22 Ordered Labs: Laboratory Tests 12/04/17 12/04/17 12/04/17 Range/Units 18:23 18:24 19:22 WBC 5.2 (4.5-11.0) K/uL RBC 3.84 (3.30-5.50) M/uL Hgb 11.6 L (12.0-15.0) g/dL Hct 35.0 L (36.0-48.0) % MCV 91 (80-98) fL MCH 30 (27-31) pg MCHC 33 (32-36) % Plt Count 231 (150-400) K/uL Neut % (Auto) 67 H (36-66) % Lymph % (Auto) 24 (24-44) % [place] % (Auto) 8 H (2-6) % Eos % (Auto) 0 L (2-4) % Baso % (Auto) 1 (0-1) % Sodium 144 (140-148) mmol/L Potassium 3.9 (3.6-5.2) mmol/L Chloride 109 H (100-108) mmol/L Carbon Dioxide 30 (21-32) mmol/L Anion Gap 8.9 (5.0-14.0) mmol/L BUN 15 (7-18) mg/dL Creatinine 1.0 (0.6-1.0) mg/dL Est Cr Clr Drug Dosing 48.00 mL/min Estimated GFR (MDRD) 54 L (>60) Glucose 197 H (74-106) mg/dL Calcium 7.7 L (8.5-10.1) mg/dL Urine Color [place] Urine Appearance Slightly cloudy Urine pH 6.0 (4.5-8.0) Ur Specific [place] 1.015 (1.008-1.030) Urine Protein Negative (NEGATIVE) mg/dL Urine Glucose (UA) Normal (NEGATIVE) mg/dL Urine Ketones 15 H (NEGATIVE) mg/dL Urine Occult Blood Negative (NEGATIVE) Urine Nitrite Negative (NEGATIVE) Urine Bilirubin Small (NEGATIVE) Urine Urobilinogen 4 (NORMAL) mg/dL Ur Leukocyte Esterase Large (NEGATIVE) Urine RBC 0-5 (0-5) Urine WBC 20-30 H (0-5) Ur Epithelial Cells Few Amorphous Sediment Few Urine Bacteria Not seen Urine Mucus Rare Departure - Departure Time of Disposition: 20:16 Disposition: Home, Self-Care 01 Condition: Good Clinical Impression: Dizziness Leg wound, right Qualifiers: Encounter type: initial encounter Qualified Code(s): S81.801A - Unspecified open wound, right lower leg, initial encounter - Discharge Information Referrals: Kulwant Abraham CLAM BED LABORER [Primary Care Provider] - Forms: ED Department Discharge Additional Instructions: Complete full course of antibiotics, please call to the clinic in the morning for an appointment time with Dr. Piedra in wound care, call return to the emergency department worsening of symptoms - My Orders Last 24 Hours: My Active Orders 12/04/17 19:22 UA W/MICROSCOPIC [URIN] Urgent - Assessment/Plan Last 24 Hours: My Active Orders 12/04/17 19:22 UA W/MICROSCOPIC [URIN] Urgent Plan: Assessment Acuity = acute Site and laterality = chronic leg wound right side, dizziness complicated patient with known history of urinary tract infection Etiology = unclear etiology Manifestations = none Location of injury = Home Lab values = CBC, CMP unremarkable urinalysis reveals 20-30 WBCs consistent with a pyuria review of culture shows sensitivity to ciprofloxacin to Escherichia coli Plan Recommend continuing the ciprofloxacin for recurrent urinary tract infection, consult has been set up with wound care for further evaluation she will call to the clinic in the morning for an appointment time This note was dictated using Split voice recognition software please call with any questions on syntax or grammar.
== END 2017-12-04 20:53 | disposition home or self-care (01) ==
LOC: JP.ED 16:09
DX: S81.801A Unspecified open wound, right lower leg, initial encounter (principal); R42 Dizziness and giddiness; E11.9 Type 2 diabetes mellitus without complications; I10 Essential (primary) hypertension; E78.00 Pure hypercholesterolemia, unspecified; J45.909 Unspecified asthma, uncomplicated; Z79.899 Other long term (current) drug therapy; Z87.440 Personal history of urinary (tract) infections; Z91.09 Other allergy status, other than to drugs and biological substances; X58.XXXA Exposure to other specified factors, initial encounter
CPT/HCPCS: 36415; 80048; 81001; 85025; 99284

== ENCOUNTER 2018-01-01 07:09 | Inpatient (IN) | payer MEDICARE ==
[2018-01-01] MEDS ORDERED: Propofol 200 MG/20 ML SDV ONE (07:21)
[2018-01-01] MEDS ORDERED: fentaNYL 100 MCG/2 ML SDV ONE (07:21)
[2018-01-01] MEDS ORDERED: MVI, Adult with Vitamin K 10 ML, Thiamine 200 MG, Chromium/Copper/Mang/Selen/Zn 1 ML in... IV ONE ×4 (08:00)
[2018-01-01] MEDS ORDERED: Cyanocobalamin (Vitamin B12) 1,000 MCG/ML SDV IM ONE (08:30)
[2018-01-01] MEDS ORDERED: Glycopyrrolate 0.2 MG/ML 2 ML SDV IVPUSH ONE (08:30)
[2018-01-01] MEDS ORDERED: Ondansetron 4 MG/2 ML SDV IV PRN (13:28)
[2018-01-01] MEDS ORDERED: D5 1/2 NS w/ 20 mEq/L KCl 1,000 ML IV SCH (13:30)
[2018-01-01] MEDS ORDERED: traMADol 50 MG Tab PO PRN (14:22)
[2018-01-01] MEDS: Magnesium Sulfate/Water 2 GM in Premix Bag 1 BAG IV SCH ×2 (15:22→20:29)
[2018-01-01] MEDS: Benzonatate 100 MG Cap PO SCH ×2 (15:23→20:35)
[2018-01-01] MEDS: Pantoprazole 40 MG Vial IV SCH (15:26)
[2018-01-01] MEDS: Potassium Phosphates 22.5 MMOLE in Sodium Chloride 0.9% 250 ML IV SCH ×2 (15:55→19:22)
[2018-01-01] MEDS ORDERED: SELEN IV ONE ×3 (16:00)
[2018-01-01] MEDS ORDERED: COPPER IV ONE ×3 (16:00)
[2018-01-01] MEDS ORDERED: CHROMIUM IV ONE ×3 (16:00)
[2018-01-01] MEDS ORDERED: VITAMIN K IV ONE ×3 (16:00)
[2018-01-01] MEDS ORDERED: [UNRECOGNIZED DRUG - OTHER] IV ONE ×3 (16:00)
[2018-01-01] MEDS ORDERED: MANG IV ONE ×3 (16:00)
[2018-01-01] MEDS ORDERED: MVI IV ONE ×3 (16:00)
[2018-01-01] MEDS ORDERED: HYDROmorphone/Normal Saline 15 MG/30 ML PCA IV PRN (19:32)
[2018-01-01] MEDS ORDERED: Naloxone 0.4 MG/ML SDV IVPUSH PRN (19:32)
[2018-01-02] MEDS: Pantoprazole 40 MG Vial IV SCH (01:27)
[2018-01-02] MEDS: Magnesium Sulfate/Water 2 GM in Premix Bag 1 BAG IV SCH ×4 (01:31→20:00)
[2018-01-02] MEDS ORDERED: Meropenem 500 MG SDV ONE (06:35)
[2018-01-02] MEDS ORDERED: Bupivacaine 0.5%/EPINEPHrine 1:200,000 50 ML MDV ONE (06:35)
--- NOTE | 2018-01-02 07:29 | PCM.HP ---
H&P History of Present Illness - General Date of Service: 01/02/18 Admit Problem/Dx: Admission Diagnosis/Problem Admission Diagnosis/Problem Stricture of esophagus Source of Information: Patient History Limitations: Reports: No Limitations - History of Present Illness Initial Comments - Free Text/Narative: Ale was found to have an ulcer about 2 months ago. She continues to have problems eating and she states about 40 lbs since June with 16 lbs the past month. Has mid epigastric pain and vomiting. Gradual onset and suddenly getting worse. An EGD on 01/01/18 was done and Ale was admitted for surgery Onset of Symptoms: Reports: Gradual Duration of Symptoms: Reports: Week(s):, Getting Worse, Intermittent Location: Reports: Abdomen Quality: Reports: Ache, Burning, Dull, Pressure Severity: Moderate Improves with: Reports: None Worsens with: Reports: None Context: Reports: Sick Contact Associated Symptoms: Reports: Loss of Appetite, Malaise, Nausea/Vomiting, Weakness Abdomen Pain Score (Numeric/FACES): 4 - Related Data Allergies/Adverse Reactions: Allergies Allergy/AdvReac Type Severity Reaction Status Date / Time nickel Allergy Swelling Uncoded 01/01/18 08:26 pollen Allergy Difficulty Uncoded 01/01/18 08:26 Breathing Home Medications: Home Meds Lisinopril 10 mg PO DAILY 08/14/15 [History] [place]-3 Fatty Acids [Fish Oil] 500 mg PO DAILY 08/14/15 [History] Calcium Carbonate [Tums Extra Strength] 1,500 mg PO BID 09/04/17 [History] Cholecalciferol (Vitamin D3) [Vitamin D3] 5,000 unit PO DAILY 09/04/17 [History] Cyanocobalamin (Vitamin B-12) [Vitamin B-12] 1,000 mcg PO DAILY 09/04/17 [ History] Docusate Sodium/Sennosides [Senokot-S] 2 tab PO BID 09/04/17 [History] Ferrous Fumarate/Vitamin C [Vitron-C] 125 - 200 mg PO DAILY 09/04/17 [History] Magnesium Hydroxide [Milk of Magnesia] 30 ml PO BEDTIME 09/04/17 [History] Multivitamin with Minerals [Multiple Vitamin] 2 tab PO DAILY 09/04/17 [History] Thiamine HCl [Vitamin B-1] 100 mg PO DAILY 09/04/17 [History] Triamcinolone Acetonide [Triamcinolone Acetonide 0.1% Crm] 1 applic TOP TID PRN 09/04/17 [History] Trolamine Salicylate [Aspercreme] 1 applic TOP DAILY 09/04/17 [History] prednisoLONE acetate [Pred Forte 1% Ophth Susp] 3 drop EARBOTH DAILY 09/04/17 [ History] traMADol HCl [Tramadol HCl] 50 mg PO BID PRN 09/04/17 [History] Potassium Chloride [K-Tab ER] 20 meq PO TID 09/25/17 [History] Benzonatate 200 mg PO TID 10/30/17 [History] Pantoprazole Sodium [Protonix] 40 mg PO DAILY 11/20/17 [History] Vitamin B Complex [B Complex] 1 tab PO DAILY 11/20/17 [History] HCTZ/Triamterene [Dyazide 25-37.5 MG] 1 each PO ASDIRECTED #14 cap 11/30/17 [Rx] Calcium Carb & Citrate/Vit D3 [Calcium + D3 ER Tablet] 1 each PO BID 12/30/17 [ History] Past Medical History HEENT History: Reports: Impaired Vision Other HEENT History: reading glasses Cardiovascular History: Reports: High Cholesterol, Hypertension Respiratory History: Reports: Asthma Gastrointestinal History: Reports: Chronic Constipation, GERD Genitourinary History: Reports: None 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 History: Reports: Musculoskeletal History: Reports: Back Pain, Chronic Psychiatric History: Reports: Depression Endocrine/Metabolic History: Reports: Diabetes, Type II Hematologic History: Reports: B12 Deficiency - Infectious Disease History Infectious Disease History: Reports: Chicken Pox - Past Surgical History HEENT Surgical History: Reports: Cataract Surgery, Other (See Below) Other HEENT Surgeries/Procedures: ear surgery Cardiovascular Surgical History: Reports: None Respiratory Surgical History: Reports: None GI Surgical History: Reports: Bariatric Procedure, Cholecystectomy, Colonoscopy , Other (See Below) Other GI Surgeries/Procedures: gastrectomy Female Surgical History: Reports: Hysterectomy, Salpingo-Oophorectomy Endocrine Surgical History: Reports: None Musculoskeletal Surgical History: Reports: Hip Replacement Dermatological Surgical History: Reports: None Social & Family History - Family History Family Medical History: Noncontributory - Tobacco Use Smoking Status *Q: Former Smoker Years of Tobacco use: 40 Packs/Tins Daily: 1 Used Tobacco, but Quit: Yes Month/Year Tobacco Last Used: 1994 Second Hand Smoke Exposure: No - Caffeine Use Caffeine Use: Reports: None - Alcohol Use Days Per Week of Alcohol Use: 0 - Recreational Drug Use Recreational Drug Use: No H&P Review of Systems - Review of Systems: Review Of Systems: See Below General: Reports: Fatigue HEENT: Reports: No Symptoms Pulmonary: Reports: No Symptoms Cardiovascular: Reports: No Symptoms Gastrointestinal: Reports: Abdominal Pain, Decreased Appetite, Difficulty Swallowing, Nausea, Vomiting Genitourinary: Reports: No Symptoms Musculoskeletal: Reports: No Symptoms Skin: Reports: No Symptoms Psychiatric: Reports: No Symptoms Neurological: Reports: No Symptoms Hematologic/Lymphatic: Reports: No Symptoms Immunologic: Reports: No Symptoms Exam - Exam Exam: See Below - Vital Signs Vital Signs: Last Vital Signs Temp 97.2 F 01/02/18 02:41 Pulse 59 L 01/02/18 02:41 Resp 18 01/02/18 02:41 BP 115/68 01/02/18 02:41 Pulse Ox 92 L 01/02/18 02:41 Weight: 133 lb - Exam Quality Assessment: DVT Prophylaxis General: Alert, Oriented, Cooperative HEENT: PERRLA Neck: Supple Lungs: Clear to Auscultation, Normal Respiratory Effort Cardiovascular: Regular Rate, Regular Rhythm GI/Abdominal Exam: Soft, Non-Tender (Female) Exam: Normal External Exam Rectal (Female) Exam: Normal Exam Back Exam: Normal Inspection, Full Range of Motion Extremities: Normal Inspection, Normal Range of Motion Skin: Warm, Dry, Intact Neurological: Cranial Nerves Intact, Reflexes Equal Bilateral Neuro Extensive - Mental Status: Alert, Oriented x3 Neuro Extensive - Motor, Sensory, Reflexes: CN II-XII Intact, Normal Gait, Normal Reflexes Psychiatric: Alert, Normal Affect, Normal Mood - Patient Data Lab Results Last 24 hrs: Laboratory Results - last 24 hr 01/01/18 01/01/18 01/01/18 Range/Units 11:45 11:45 11:45 WBC 4.5 (4.5-11.0) K/uL RBC 3.63 (3.30-5.50) M/uL Hgb 11.2 L (12.0-15.0) g/dL Hct 34.2 L (36.0-48.0) % MCV 94 (80-98) fL MCH 31 (27-31) pg MCHC 33 (32-36) % Plt Count 341 (150-400) K/uL Sodium 144 (140-148) mmol/L Potassium 3.4 L (3.6-5.2) mmol/L Chloride 111 H (100-108) mmol/L Carbon Dioxide 26 (21-32) mmol/L Anion Gap 10.4 (5.0-14.0) mmol/L BUN 12 (7-18) mg/dL Creatinine 0.5 L (0.6-1.0) mg/dL Est Cr Clr Drug Dosing 94.01 mL/min Estimated GFR (MDRD) > 60 (>60) Glucose 99 (74-106) mg/dL Calcium 7.6 L (8.5-10.1) mg/dL Phosphorus (2.5-4.9) mg/dL Magnesium (1.8-2.4) mg/dL Ferritin (8-388) ng/ml Total Bilirubin 0.6 D (0.2-1.0) mg/dL AST 15 D (15-37) U/L ALT 22 (12-78) U/L Alkaline Phosphatase 100 (46-116) U/L NT-Pro-B Natriuret Pep (5-125) pg/mL Total Protein 5.0 L (6.4-8.2) g/dL Albumin 1.9 L (3.4-5.0) g/dL Globulin 3.1 (2.3-3.5) g/dL Albumin/Globulin Ratio 0.6 L (1.2-2.2) Vitamin B12 (193-986) pg/ml Folate (8.6-58.9) ng/ml Blood Type O POSITIVE Gel Antibody Screen Negative 01/01/18 01/01/18 01/01/18 Range/Units 11:45 11:45 11:45 WBC (4.5-11.0) K/uL RBC (3.30-5.50) M/uL Hgb (12.0-15.0) g/dL Hct (36.0-48.0) % MCV (80-98) fL MCH (27-31) pg MCHC (32-36) % Plt Count (150-400) K/uL Sodium (140-148) mmol/L Potassium (3.6-5.2) mmol/L Chloride (100-108) mmol/L Carbon Dioxide (21-32) mmol/L Anion Gap (5.0-14.0) mmol/L BUN (7-18) mg/dL Creatinine (0.6-1.0) mg/dL Est Cr Clr Drug Dosing mL/min Estimated GFR (MDRD) (>60) Glucose (74-106) mg/dL Calcium (8.5-10.1) mg/dL Phosphorus 3.4 (2.5-4.9) mg/dL Magnesium 1.6 L (1.8-2.4) mg/dL Ferritin 203 (8-388) ng/ml Total Bilirubin (0.2-1.0) mg/dL AST (15-37) U/L ALT (12-78) U/L Alkaline Phosphatase (46-116) U/L NT-Pro-B Natriuret Pep (5-125) pg/mL Total Protein (6.4-8.2) g/dL Albumin (3.4-5.0) g/dL Globulin (2.3-3.5) g/dL Albumin/Globulin Ratio (1.2-2.2) Vitamin B12 2682 H (193-986) pg/ml Folate 19.3 (8.6-58.9) ng/ml Blood Type Gel Antibody Screen 01/01/18 Range/Units 11:45 WBC (4.5-11.0) K/uL RBC (3.30-5.50) M/uL Hgb (12.0-15.0) g/dL Hct (36.0-48.0) % MCV (80-98) fL MCH (27-31) pg MCHC (32-36) % Plt Count (150-400) K/uL Sodium (140-148) mmol/L Potassium (3.6-5.2) mmol/L Chloride (100-108) mmol/L Carbon Dioxide (21-32) mmol/L Anion Gap (5.0-14.0) mmol/L BUN (7-18) mg/dL Creatinine (0.6-1.0) mg/dL Est Cr Clr Drug Dosing mL/min Estimated GFR (MDRD) (>60) Glucose (74-106) mg/dL Calcium (8.5-10.1) mg/dL Phosphorus (2.5-4.9) mg/dL Magnesium (1.8-2.4) mg/dL Ferritin (8-388) ng/ml Total Bilirubin (0.2-1.0) mg/dL AST (15-37) U/L ALT (12-78) U/L Alkaline Phosphatase (46-116) U/L NT-Pro-B Natriuret Pep 1057 H (5-125) pg/mL Total Protein (6.4-8.2) g/dL Albumin (3.4-5.0) g/dL Globulin (2.3-3.5) g/dL Albumin/Globulin Ratio (1.2-2.2) Vitamin B12 (193-986) pg/ml Folate (8.6-58.9) ng/ml Blood Type Gel Antibody Screen Result Diagrams: 01/01/18 11:45 01/01/18 11:45 Problem List Initiated/Reviewed/Updated: Yes Orders Last 24hrs: Active Orders 24 hr Category Date Time Status Patient Status [ADT] Routine ADT 01/01/18 11:15 Active Ambulate [RC] QID Care 01/01/18 13:42 Active Communication Order [RC] STAT Care 01/01/18 19:32 Active Intake and Output [RC] QSHIFT Care 01/01/18 13:44 Active Notify Provider [RC] PRN Care 01/01/18 19:32 Active Oxygen Therapy [RC] PRN Care 01/01/18 13:42 Active W[employer] MECH[employer]IC Record [RC] PER UNIT ROUTINE Care 01/01/18 19:32 Active Pulse Oximetry [RC] CONTINUOUS Care 01/01/18 19:32 Active RT Incentive Spirometry [RC] ASDIRECTED Care 01/01/18 11:52 Active Up to Chair [RC] QID Care 01/01/18 13:42 Active Verify Patient Consent Obtain [RC] ASDIRECTED Care 01/01/18 13:48 Active Vital Signs [RC] Q4H Care 01/01/18 13:42 Active Full Liquid Diet [DIET] Diet 01/01/18 Dinner Ordered Nothing per Oral After Midnight Diet [DIET] Diet 01/02/18 Breakfast Active VITAMIN A, SERUM Routine Lab 01/01/18 11:45 Received Benzonatate [Tessalon Perles] Med 01/01/18 14:00 Active 200 mg PO TID D5 1/2 NS w/ 20 mEq/L KCl 1,000 ml Med 01/01/18 13:30 Active IV ASDIRECTED HYDROmorphone/Normal Saline [Dilaudid [employer] MECH[employer]IC 15 MG in NS Med 01/01/18 19:32 Active 30 ML] See Protocol IV ASDIRECTED PRN Ketamine [Ketalar] Med 01/02/18 08:30 Active 30 mg IV ASDIRECTED Ketamine [Ketalar] 100 mg Med 01/02/18 08:30 Active Sodium Chloride 0.9% [Normal Saline] 99 ml IV ASDIRECTED Lidocaine 0.4%/D5W [Lidocaine 2 GM/D5W 500 ML] Med 01/02/18 08:30 Active 2 gm in 500 ml IV 1 mg/min Lidocaine 2% [Xylocaine 2%] Med 01/02/18 08:30 Once 90 mg IVPUSH ONETIME ONE Magnesium Sulfate/Water [Magnesium Sulfate 2 GM in Med 01/01/18 14:00 Active Water 50 ML] 2 gm Premix Bag 1 bag IV Q6H Naloxone [Narcan] Med 01/01/18 19:32 Active 0.4 mg IVPUSH Q2M PRN Ondansetron [Zofran] Med 01/01/18 13:28 Active 4 mg IV Q4H PRN Pantoprazole [ProTONIX IV] Med 01/01/18 14:00 Active 40 mg IV Q12H Ropivacaine [Naropin 0.5%] 30 ml Med 01/02/18 08:30 Active Dexamethasone 8 mg EPINEPHrine [Adrenalin] 0.4 mg Sodium Chloride 0.9% [Normal Saline] 47.6 ml NERVRT ASDIRECTED cefOXitin [Mefoxin] 2 gm Med 01/02/18 08:30 Active Sodium Chloride 0.9% [Normal Saline] 50 ml IV ONCALL prednisoLONE acetate [Pred Forte 1% Ophth Susp] Med 01/02/18 09:00 Active 0 ml EARBOTH DAILY traMADol [Ultram] Med 01/01/18 14:22 Active 50 mg PO Q6H PRN Medication Discontinuation Instructions [OM.PC] Stat Oth 01/01/18 19:32 Ordered Resuscitation Status Routine Resus Stat 01/01/18 13:42 Ordered Medication Orders Benzonatate (Tessalon Perles) 200 mg PO TID ETELVINA Last Admin: 01/01/18 20:35 Dose: 200 mg Admin: 01/01/18 15:23 Dose: 200 mg Ropivacaine 30 ml/Dexamethasone 8 mg/Epinephrine HCl 0.4 mg/ Sodium Chloride 47.6 ml 0 ml NERVRT ASDIRECTED ETELVINA Hydromorphone HCl (Dilaudid Salad Counter Attendant 15 Mg In Ns 30 Ml) 0 mg IV ASDIRECTED PRN; Protocol PRN Reason: Pain Last Admin: 01/01/18 19:44 Dose: 15 mg Potassium Chloride/Dextrose/Sod Cl (D5 1/2 Ns W/ 20 Meq/L Kcl) 1,000 mls @ 100 mls/hr IV ASDIRECTED ETELVINA Last Admin: 01/02/18 01:30 Dose: 100 mls/hr Magnesium Sulfate 2 gm/ Premix 50 mls @ 25 mls/hr IV Q6H ETELVINA Stop: 01/04/18 09:59 Last Admin: 01/02/18 01:31 Dose: 25 mls/hr Infusion: 01/01/18 22:29 Dose: 25 mls/hr Admin: 01/01/18 20:29 Dose: 25 mls/hr Infusion: 01/01/18 17:22 Dose: 25 mls/hr Admin: 01/01/18 15:22 Dose: 25 mls/hr Cefoxitin Sodium 2 gm/ Sodium (Chloride) 50 mls @ 100 mls/hr IV ONCALL ONE Stop: 01/02/18 08:59 Lidocaine HCl/Dextrose (Lidocaine 2 Gm/D5w 500 Ml) 2 gm in 500 mls @ 15 mls/hr IV .Q24H ETELVINA Ketamine HCl 100 mg/ Sodium (Chloride) 100 mls @ 18.09 mls/hr IV ASDIRECTED ETELVINA Ketamine HCl (Ketalar) 30 mg IV ASDIRECTED ETELVINA Lidocaine HCl (Xylocaine 2%) 90 mg IVPUSH ONETIME ONE Stop: 01/02/18 08:31 Naloxone HCl (Narcan) 0.4 mg IVPUSH Q2M PRN PRN Reason: Respiratory Distress Ondansetron HCl (Zofran) 4 mg IV Q4H PRN PRN Reason: N/V Pantoprazole Sodium (Protonix Iv) 40 mg IV Q12H [facility] Last Admin: 01/02/18 01:27 Dose: 40 mg Admin: 01/01/18 15:26 Dose: 40 mg Prednisolone Acetate (Pred Forte 1% Ophth Susp) 0 ml EARBOTH DAILY ETELVINA Tramadol HCl (Ultram) 50 mg PO Q6H PRN PRN Reason: PAIN Assessment/Plan Comment:: Assessment: Stricture and Persistent Ulcer at the gastrojejunostomy EGD - 01/01/18 Weight Loss Malnutrition Plan: Admit as Inpatient Schedule and have Consent signed for: Laporoscopy possible Open with Revision of Gastrojejunostomy and insertion of Central IV Line - General Anesthesia - Brian Jones MD NPO after MN 01/02/18 Jessica Jj
[2018-01-02] MEDS ORDERED: Ropivacaine 30 ML, Dexamethasone 8 MG, EPINEPHrine 0.4 MG, Sodium Chloride 0.9% 47.6 ML NERVRT SCH ×4 (08:30)
[2018-01-02] MEDS ORDERED: Ketamine 500 MG/5 ML MDV IV SCH (08:30)
[2018-01-02] MEDS ORDERED: cefOXitin 2 GM in Sodium Chloride 0.9% 50 ML IV ONE (08:30)
[2018-01-02] MEDS ORDERED: Lidocaine 2% 100 MG/5 ML Syringe IVPUSH ONE (08:30)
[2018-01-02] MEDS ORDERED: Neostigmine Methylsulfate 1 MG/ML 5 ML Syringe ONE (09:00)
[2018-01-02] MEDS ORDERED: Glycopyrrolate 0.2 MG/ML 5 ML MDV ONE (09:00)
[2018-01-02] MEDS ORDERED: Succinylcholine 200 MG/10 ML MDV ONE (09:00)
[2018-01-02] MEDS ORDERED: Rocuronium 50 MG/5 ML Vial ONE (09:00)
[2018-01-02] MEDS ORDERED: Lactated Ringers 2,000 ML ONE (10:24)
[2018-01-02] MEDS ORDERED: Propofol 200 MG/20 ML SDV ONE (13:00)
[2018-01-02] MEDS ORDERED: Ondansetron 4 MG/2 ML SDV IVPUSH ONE (13:22)
--- NOTE | 2018-01-02 13:35 | CR ---
CHEST: Portable CLINICAL HISTORY:Central line placement COMPARISON:2013 FINDINGS: Patient is free intraperitoneal air from recent surgery. There is a surgical drain in the left upper quadrant. There is some subcutaneous emphysema in the abdominal and thoracic gorman. Patien t has a left the subclavian catheter. The tip is in the right atrium. There is some airspace disease in the left lower lobe which appears to be consolidation. There is no pneumothorax. IMPRESSION: Postoperative free intraperitoneal air Left lower lobe consolidation Left subclavian central venous catheter tip is in the right atrium
[2018-01-02] MEDS ORDERED: Dextrose 5%-Lactated Ringers 1,000 ML IV SCH ×2 (13:45→17:00)
[2018-01-02] MEDS ORDERED: Labetalol 20 MG/4 ML Syringe IVPUSH PRN (14:00)
[2018-01-02] MEDS ORDERED: hydrOXYzine HCl 100 MG/2 ML SDV IM PRN (14:00)
[2018-01-02] MEDS ORDERED: Metoclopramide 10 MG/2 ML SDV IVPUSH PRN (14:00)
[2018-01-02] MEDS ORDERED: diphenhydrAMINE 50 MG/ML SDV IVPUSH PRN (14:00)
[2018-01-02] MEDS ORDERED: Ondansetron 4 MG/2 ML SDV IVPUSH PRN (14:00)
[2018-01-02] MEDS: Gabapentin 250 MG/5 ML Solution ML 470 ML Bottle PO SCH ×2 (15:46→20:00)
[2018-01-02] MEDS: Acetaminophen Soln 650 MG/20.3 ML UD Cup PO SCH ×2 (15:46→22:20)
[2018-01-02] MEDS: cefOXitin 2 GM in Sodium Chloride 0.9% 50 ML IV SCH ×2 (15:46→22:20)
[2018-01-02] MEDS: Lidocaine 0.4%/D5W 2 GM/500 ML BAG IV SCH (15:47)
[2018-01-02] MEDS: Benzonatate 100 MG Cap PO SCH ×3 (15:48→21:44)
[2018-01-02] MEDS: 1: AA 5%/Calcium/D15W/Lytes 1,000 ML with MVI, Adult with Vitamin K 10 ML, Chromium/Copp IV SCH ×3 (16:36)
[2018-01-02] MEDS: Heparin Sodium 5,000 Units/ML Vial SUBCUT SCH (20:00)
[2018-01-02] MEDS: prednisoLONE Acetate 1% Ophth Susp 10 ML Bottle EARBOTH SCH (20:00)
[2018-01-02] MEDS: Pantoprazole 40 MG Vial IVPUSH SCH (20:01)
[2018-01-03] MEDS: Magnesium Sulfate/Water 2 GM in Premix Bag 1 BAG IV SCH ×4 (01:30→20:03)
[2018-01-03] MEDS: Acetaminophen Soln 650 MG/20.3 ML UD Cup PO SCH ×2 (01:37→03:53)
[2018-01-03] MEDS ORDERED: Iopamidol 612 MG/ML 50 ML SDV PO PRN (03:31)
[2018-01-03] MEDS: 1: AA 5%/Calcium/D15W/Lytes 1,000 ML with MVI, Adult with Vitamin K 10 ML, Chromium/Copp IV SCH ×6 (03:46→13:50)
[2018-01-03] MEDS ORDERED: Iohexol 647 MG/ML 50 ML SDV IVPUSH PRN (04:03)
[2018-01-03] MEDS: cefOXitin 2 GM in Sodium Chloride 0.9% 50 ML IV SCH ×4 (04:27→21:29)
[2018-01-03] MEDS: Benzonatate 100 MG Cap PO SCH ×3 (08:44→20:05)
[2018-01-03] MEDS: Heparin Sodium 5,000 Units/ML Vial SUBCUT SCH ×2 (08:45→20:02)
[2018-01-03] MEDS: Celecoxib 200 MG Cap PO SCH (08:45)
[2018-01-03] MEDS: prednisoLONE Acetate 1% Ophth Susp 10 ML Bottle EARBOTH SCH (08:46)
[2018-01-03] MEDS: Lidocaine 0.4%/D5W 2 GM/500 ML BAG IV SCH (08:47)
[2018-01-03] MEDS: SCOPOLAMINE PATCH CHECK TOP SCH (08:47)
[2018-01-03] MEDS: Gabapentin 250 MG/5 ML Solution ML 470 ML Bottle PO SCH (08:50)
[2018-01-03] MEDS ORDERED: Dextrose 5%-Lactated Ringers 1,000 ML IV SCH (09:15)
[2018-01-03] MEDS: Acetaminophen 500 MG Tab PO SCH ×3 (10:37→21:26)
[2018-01-03] MEDS: Hydrochlorothiazide/Triamterene 25-37.5 Tab PO SCH (10:37)
[2018-01-03] MEDS: Lisinopril 10 MG Tab PO SCH (10:37)
[2018-01-03] MEDS: Albumin 25% 12.5 GM in Premix Bag 1 BAG IV SCH ×2 (12:15→13:49)
[2018-01-03] MEDS: Pantoprazole 40 MG Vial IVPUSH SCH (20:05)
[2018-01-04] MEDS: 1: AA 5%/Calcium/D15W/Lytes 1,000 ML with MVI, Adult with Vitamin K 10 ML, Chromium/Copp IV SCH ×6 (00:22→10:58)
[2018-01-04] MEDS: Magnesium Sulfate/Water 2 GM in Premix Bag 1 BAG IV SCH ×2 (02:54→07:15)
[2018-01-04] MEDS: Acetaminophen 500 MG Tab PO SCH ×4 (03:00→21:13)
[2018-01-04] MEDS: Celecoxib 200 MG Cap PO SCH (07:17)
[2018-01-04] MEDS: Heparin Sodium 5,000 Units/ML Vial SUBCUT SCH ×2 (07:17→21:13)
[2018-01-04] MEDS: SCOPOLAMINE PATCH CHECK TOP SCH (08:07)
[2018-01-04] MEDS ORDERED: 1: AA 5%/Calcium/D15W/Lytes 1,000 ML with MVI, Adult with Vitamin K 10 ML, Chromium/Copp IV SCH ×6 (08:15→12:00)
[2018-01-04] MEDS ORDERED: HYDROmorphone 2 MG Tab PO PRN (08:32)
[2018-01-04] MEDS: Benzonatate 100 MG Cap PO SCH ×3 (08:44→21:13)
[2018-01-04] MEDS: Lisinopril 10 MG Tab PO SCH (08:44)
[2018-01-04] MEDS: prednisoLONE Acetate 1% Ophth Susp 10 ML Bottle EARBOTH SCH (08:44)
[2018-01-04] MEDS: Hydrochlorothiazide/Triamterene 25-37.5 Tab PO SCH (08:45)
[2018-01-04] MEDS: Bisacodyl 5 MG Tab PO SCH ×2 (08:58→21:19)
[2018-01-04] MEDS ORDERED: Magnesium Hydroxide 400 MG/5 ML Susp 30 ML Cup PO ONE (09:00)
[2018-01-04] MEDS ORDERED: Cyanocobalamin (Vitamin B12) 1,000 MCG/ML SDV IM ONE (09:00)
[2018-01-04] MEDS: Albumin 25% 12.5 GM in Premix Bag 1 BAG IV SCH ×2 (10:54→13:19)
[2018-01-04] MEDS: Pantoprazole 40 MG Vial IVPUSH SCH (21:13)
[2018-01-05] MEDS: Acetaminophen 500 MG Tab PO SCH (03:10)
[2018-01-05 07:09] VITALS: BP 156/73
[2018-01-05] MEDS ORDERED: Central Total Parenteral Nutrition Bag SCH (08:00)
--- NOTE | 2018-01-05 09:03 | CR ---
UGI wo KUB HISTORY: eval R -Y GBP FINDINGS: After administration of oral contrast, upright views were obtained. Post operative changes gastric bypass. Surgical drains in place. No evidence for leak. Contrast passes freely into proximal small bowel loops. IMPRESSION: No evidence for leak or obstruction.
--- NOTE | 2018-01-05 09:09 | DISCH ---
ADMISSION DIAGNOSES: 1. Malnutrition and weight loss secondary to nausea, vomiting, and dysphagia. 2. Status post Beverly-en-Y gastric bypass surgery. 3. Unspecified surgical malabsorption. 4. B12 deficiency. 5. Hypertension. 6. Iron deficiency anemia. 7. Diabetes type 2. 8. COAT agreement. 9. Elevated liver function tests. 10.Osteoporosis. 11.Bursitis, left hip. 12.Osteoarthritis. 13.Constipation. 14.Restless legs syndrome. DISCHARGE DIAGNOSES: 1. EGD on 01/01/2018, which revealed a stricture and persistent ulcer at the gastrojejunostomy. 2. Diagnostic laparoscopy with lysis of adhesions, proximal gastrostomy with Beverly-en-Y gastric bypass surgery, and splenorrhaphy for persistent ulcer at the gastrojejunostomy with stricture and dense adherence to the stomach pouch, to the spleen. Date of surgery, 01/02/2018. HISTORY: Ale Crandall is a 72-year-old female who had persistent problems with an ulcer at the gastrojejunostomy with a stricture, which caused persistent nausea and vomiting resulting in malnutrition and weight loss. At the time of her laparoscopy, she had a central line put in, and she was started on TPN therapy. Her surgery was on 01/02/2018. She had no operative complications. On postoperative day #1, vital signs were stable. She was started on TPN, and this was increased. She was to 85 mL per hour. Lab work was done. She was started on some of her home medications. On postoperative day #2, she was started on a step-2 gastric bypass diet with no cereal. Her activity was good. She was started on oral pain medication. Her TPN was decreased. On postoperative day #3, she was able to be discharged to home. PHYSICAL EXAMINATION: GENERAL: Ale Crandall is a pleasant 72-year-old female. She is alert and orientated. VITAL SIGNS: Stable. HEENT: Negative. NECK: Supple. HEART: Regular rate and rhythm. LUNGS: Clear. ABDOMEN: Sutures intact. Abdominal binder is on. EXTREMITIES: Without peripheral edema. DISPOSITION: Discharged to home. CONDITION: Stable and improving. ACTIVITY: Walk 6 times daily. DISCHARGE DIET: Step-2 gastric bypass diet with no cereal. DISCHARGE INSTRUCTIONS: Special instruction, use incentive spirometer 10 times every hour while awake for 1 week. Wear abdominal binder. FOLLOWUP APPOINTMENT: On 01/12/2018 at 10 a.m. at [facility] with Jessica Fitzgerald PA-C. Check CBC, CMP, mag, and phos at 9:30 a.m. DISCHARGE MEDICATIONS: Home Medications: 1. Acetaminophen 1 gram q.6 hours, may be chewable. 2. Lisinopril 10 mg p.o. daily, may split. 3. Dyazide 37.5/25 mg p.o. daily, may split. She is to hold on her vitamins until after first postoperative appointment.
--- NOTE | 2018-01-05 12:44 | OR ---
DATE OF PROCEDURE: 01/02/2018 PREOPERATIVE DIAGNOSES: 1. 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 2. Indications for central venous access. POSTOPERATIVE DIAGNOSES: 1. 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 2. Indications for central venous access. 3. Dense adherence to gastric pouch and spleen. PROCEDURE PERFORMED: 1. Diagnostic laparoscopy, lysis of adhesions: a. Proximal gastrectomy with Beverly-en-Y gastrojejunostomy (76905). b. Splenorrhaphy (18021). 2. Insertion of left subclavian vein triple-lumen catheter (79205). ANESTHESIA: General. DEAN: Jessica Fitzgerald PA-C. INDICATIONS FOR PROCEDURE: The patient was seen yesterday in followup of her ulcer at the gastrojejunostomy. This has failed to heal and developed in the interim a dense fibrous stricture indicating intractability and medical management and did undergo proximal gastrectomy, removal of most of the remaining gastric pouch that was minimized prior to the ulcerative mass attached to the new gastrojejunostomy. Potential risk including bleeding, infection, leaks from various GI tract closures as well as possibility of cardiopulmonary, septic, or hemorrhagic complications leading to were discussed, and the patient wishes to proceed. Additionally, the patient would benefit from IV nutrition in the early postoperative period. Given the significant weight loss over the last few months related to the ulcer and stricturing, the central line will be inserted. Potential risks of that procedure including bleeding, infection, pneumohemothorax, vascular injury were likewise reviewed and the patient wishes to proceed. DETAILS OF PROCEDURE: The patient was taken to the operating room after general endotracheal anesthesia was induced, the abdomen was prepped and draped, a Jolly catheter was inserted which was removed at the end of the procedure. At 15 cm inferior and 5 cm left of xiphoid process, a transverse incision was made and the peritoneal cavity entered under direct vision with Optiview trocar inflated to 15 mmHg pressure with CO2. Laparoscope was then reinserted. No underlying trocar insertion site injuries were seen. Following this, 5 additional trocars were placed across the upper and mid abdomen and general exploration was undertaken. The patient was noted to have quite a bit of scarring around the gastric pouch and adjacent stomach. Liver at this point was quite normal in appearance. Bilateral subcostal transversus abdominis plane block were then placed using standard solution and direct visualization of the needle to be in the correct plane. At this point, the dissection began around the liver by removing attachments to the gastric pouch and area of the gastrojejunostomy. Eventually, a diaphragm was able to be identified and the liver retracted. The dissection of the area below the gastric pouch was initiated with division of the lesser omental point somewhat below the point of inflammation. This allowed entering the lesser sac and the stomach was then sequentially divided. This included removal of portion of the bypass stomach, which was adherent to the ulcerated area of the gastrojejunostomy quite densely as well as the spleen. There was area of dense adherence of the splenic capsule, which resulted in avulsion of portion of the splenic capsule. This was controlled with some 3-0 Vicryl sutures and fibrin sealant and subsequently omentum applied to it. Once that was completed, the dissection above the level of the gastric pouch and gastrojejunostomy was established. It was eventually the proximal point of division was more or less at the esophagogastric junction. Once this was encircled, this was divided with a RADHA black load. The remaining vascular attachments to the 2 portions of the stomach to be removed. The Beverly limb was then divided at a point just proximal to the gastrojejunostomy and attached to mesentery of the segment to be removed, it was also divided with Harmonic Scalpel at this point, and at that point, specimen was cleared from the field and it was removed prior to the conclusion of the procedure. At this point, the anvil of a 25 mm EEA stapler was attached to [place] sump type tube and was brought down through the mouth and taken out through a small opening at the proximal staple line at the gastroesophageal junction and this allowed the anvil likewise to be pulled down to the gastroesophageal junction staple line as well. The divided Beverly limb was easily came up to that area without any tension and that was opened. The main body of the EEA stapler passed several centimeters into the small bowel, brought up the anvil, united with it, thus creating the gastrojejunostomy. Upon removal of the stapler, double donuts of mucosa were noted within, small bowel that was closed off with a vascular staple line. The gastrojejunostomy was then reinforced with some 3-0 Vicryl seromuscular stitch along with fibrin sealant. Leak test was accomplished with injection of 120 mL of air in the gastric pouch while submerged with cefoxitin-containing saline solution. No leaks were identified. A single Raz-Christopher drain was then taken through left lateral trocar site, placed into the area adjacent to the gastrojejunostomy from there up over the splenic fossa. The trocars were sequentially removed. The patient was quite thin and all of the 12 and 15 mm trocar sites were closed at the fascial level with 0 Vicryl stitch and the skin at each incision with 4-0 Vicryl skin stitch. Dressing applied. The patient taken to the recovery room in satisfactory condition. Physician assistant drafter, Jessica Fitzgerald, played an essential role in assisting in this case of helping things to position the patient, retract structures as needed as well as suturing and cutting sutures where indicated. Her presence improved patient safety and decreased operative time. Brian Jones MD /[id number]
--- NOTE | 2018-01-05 13:51 | OR ---
DATE OF PROCEDURE: 01/01/2018 PREOPERATIVE DIAGNOSIS: History of marginal ulcer. 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 OPERATIVE PROCEDURE: Upper GI endoscopy with dilation of gastrojejunostomy (73037). ANESTHESIA: IV sedation. INDICATION FOR PROCEDURE: This is a 72-year-old status post Beverly-en-Y gastric bypass around 2003, who was recently found to have a large marginal ulcer. She had been undergoing medical management, is to undergo a followup endoscopy for diagnostic purposes. She more recently has been describing more in the way of dysphagia as well as some continued epigastric discomfort. Potential risks including bleeding and perforation were discussed, and the patient wishes to proceed. DETAILS OF PROCEDURE: The patient was taken to the operating room and placed in a left lateral decubitus position. IV sedation was administered, after which the upper GI endoscope was passed orally through the length of the esophagus and into the gastric pouch. The patient noted at this point to have a significant stricture of the gastrojejunostomy. A Bard gastrointestinal balloon catheter was centered across the anastomosis and inflated to 36-Maori size. This was held in position for 1 minute, after which the balloon catheter was deflated and withdrawn. The scope was then able to be passed through the anastomosis, however, the patient was noted to have a persistent ulcer within the bed of the anastomosis and just distal to it and the stricture was still quite dense and fibrous, although now being able to be passed with the small caliber gastroscope. The Beverly limb beyond that point was unremarkable. At this point, the scope was withdrawn and the procedure then concluded. After the patient recovered from anesthesia, situation was reviewed. At this point, she appears to have an ulcer that is refractory to medical management and has also developed some stricturing, which is causing progressive malnutrition. The plan will be to proceed with admission of the patient for hydration and proceed with resection of that gastric pouch and reconstruction of the gastrojejunostomy tomorrow. Also plan to place a central line for IV hyperalimentation to be used in the early postoperative period to facilitated improved nutrition. Brian Jones MD /[id number]
--- NOTE | 2018-01-05 14:22 | PN ---
DATE OF SERVICE: 01/04/2018 SUBJECTIVE: The patient has been afebrile with stable vital signs. Oral intake was fairly good around 2200. We will back down the TPN to 40 mL bowel stimulation today and otherwise maximize activity and work with pulmonary toilet. Brian Jones MD /[id number]
--- NOTE | 2018-01-06 07:37 | PN ---
DATE OF SERVICE: 01/03/2018 The patient has been afebrile with stable vital signs. Oral intake has been fair, and we will go up to step-2 diet today and continue the TPN. Her albumin is quite low at 1.5, and we will supplement some albumin as well, with decreasing the amount of ascites production and overall GI tract function. She would like to have little higher dose of Tylenol, which I think 1 gram q.6 hours. She does not tolerate the gabepentin we will discontinue that. Otherwise, maximize activity and work with pulmonary toilet. Brian Jones MD /[id number]
== END 2018-01-05 08:55 | disposition home or self-care (01) | DRG 326 ==
LOC: JP.SDS 07:09 → JP.MS 11:15
PROVIDERS: ADMIT Surgery; ATTEND Surgery
PROC: 0D768ZZ Dilation of Stomach, Via Natural or Artificial Opening Endoscopic (ICD-10-PCS; principal; 2018-01-01)
PROC: 0D164ZA Bypass Stomach to Jejunum, Percutaneous Endoscopic Approach (ICD-10-PCS; 2018-01-02)
PROC: 0DNW4ZZ Release Peritoneum, Percutaneous Endoscopic Approach (ICD-10-PCS; 2018-01-02)
PROC: 07Q Lymphatic and Hemic Systems, Repair (ICD-10-PCS; 2018-01-02)
PROC: 05H633Z Insertion of Infusion Device into Left Subclavian Vein, Percutaneous Approach (ICD-10-PCS; 2018-01-02)
PROC: 3E0336Z Introduction of Nutritional Substance into Peripheral Vein, Percutaneous Approach (ICD-10-PCS; 2018-01-02)
DX: K25.9 Gastric ulcer, unspecified as acute or chronic, without hemorrhage or perforation (principal); E43 Unspecified severe protein-calorie malnutrition; R13.10 Dysphagia, unspecified; R18.8 Other ascites; K91.2 Postsurgical malabsorption, not elsewhere classified; K66.0 Peritoneal adhesions (postprocedural) (postinfection); K22.2 Esophageal obstruction; I10 Essential (primary) hypertension; H54.7 Unspecified visual loss; E78.00 Pure hypercholesterolemia, unspecified; J45.909 Unspecified asthma, uncomplicated; K21.9 Gastro-esophageal reflux disease without esophagitis; K59.09 Other constipation; G89.29 Other chronic pain; M54.9 Dorsalgia, unspecified; F32.9 Major depressive disorder, single episode, unspecified; E11.9 Type 2 diabetes mellitus without complications; E53.8 Deficiency of other specified B group vitamins; D50.9 Iron deficiency anemia, unspecified; R79.89 Other specified abnormal findings of blood chemistry; M81.0 Age-related osteoporosis without current pathological fracture; M70.72 Other bursitis of hip, left hip; M19.90 Unspecified osteoarthritis, unspecified site; G25.81 Restless legs syndrome; Z91.048 Other nonmedicinal substance allergy status; Z98.84 Bariatric surgery status; Z90.49 Acquired absence of other specified parts of digestive tract; Z90.710 Acquired absence of both cervix and uterus; Z96.649 Presence of unspecified artificial hip joint; Z87.891 Personal history of nicotine dependence; Z79.899 Other long term (current) drug therapy
CPT/HCPCS: 43245; J2704; J3010; J3411; J3420; J3490; J7120; 36415; 71045; 71045-26; 74240; 74240-26; 80053; 82607; 82728; 82746; 83735; 83880; 84100; 84590; 85025; 85027; 86850; 86900; 86901; 87070; 87075; 87205; 88307; 94762; A9270-GY; C9113; J0171; J0330; J0694; J1100; J1170; J1642; J1644; J2001; J2185; J2405; J2710; J2795; J3475; J3480; J7030; J7042; J7050; P9047; Q9967

== ENCOUNTER 2019-03-18 17:43 | Emergency (ER) | payer MEDICARE ==
[2019-03-18 18:36] VITALS: BP 159/73; PULSE 59
[2019-03-18] MEDS ORDERED: Acetaminophen 500 MG Tab PO ONE (18:49)
--- NOTE | 2019-03-18 18:51 | EDM.PDOC ---
ED HPI GENERAL MEDICAL PROBLEM - General Chief Complaint: Lower Extremity Injury/Pain Stated Complaint: RIGHT KNEE PAIN Time Seen by Provider: 03/18/19 18:40 Source of Information: Reports: Patient, Old Records History Limitations: Reports: No Limitations - History of Present Illness INITIAL COMMENTS - FREE TEXT/NARRATIVE: 74 yo NA female presents with R knee pain since Friday. No injury. Feels a little tight with full flexion. Did hear a click once. Taking acetaminophen without full relief. Has not been to the clinic for this. No giving out of the knee. 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: Reports: Acetaminophen Right Knee Pain Score (Numeric/FACES): 2 - Related Data Allergies Allergy/AdvReac Type Severity Reaction Status Date / Time nickel Allergy Swelling Uncoded 03/18/19 18:30 pollen Allergy Difficulty Uncoded 03/18/19 18:30 Breathing Home Meds: Home Meds Lisinopril 10 mg PO DAILY 08/14/15 [History] Calcium Carbonate [Tums Extra Strength] 1,500 mg PO BID 09/04/17 [History] Docusate Sodium/Sennosides [Senokot-S] 2 tab PO BID 09/04/17 [History] Ferrous Fumarate/Vitamin C [Vitron-C] 125 - 200 mg PO DAILY 09/04/17 [History] Magnesium Hydroxide [Milk of Magnesia] 30 ml PO BEDTIME 09/04/17 [History] Triamcinolone Acetonide [Triamcinolone Acetonide 0.1% Crm] 1 applic TOP TID PRN 09/04/17 [History] Trolamine Salicylate [Aspercreme] 1 applic TOP DAILY 09/04/17 [History] prednisoLONE acetate [Pred Forte 1% Ophth Susp] 3 drop EARBOTH DAILY 09/04/17 [ History] traMADol HCl [Tramadol HCl] 50 mg PO BID PRN 09/04/17 [History] Potassium Chloride [K-Tab ER] 20 meq PO TID 09/25/17 [History] Benzonatate 200 mg PO TID 10/30/17 [History] Pantoprazole Sodium [Protonix] 40 mg PO DAILY 11/20/17 [History] Acetaminophen [Tylenol Extra Strength] 1,000 mg PO Q6H #100 tablet 01/05/18 [Rx] HCTZ/Triamterene [Maxzide 25-37.5 MG] 1 each PO DAILY tablet 01/05/18 [Rx] Lisinopril [Prinivil] 10 mg PO DAILY tablet 01/05/18 [Rx] prednisoLONE acetate [Pred Forte 1% Ophth Susp] 0 ml EARBOTH DAILY bottle 01/05 [Rx] Past Medical History HEENT History: Reports: Impaired Vision Other HEENT History: reading glasses Cardiovascular History: Reports: High Cholesterol, Hypertension Respiratory History: Reports: Asthma Gastrointestinal History: Reports: Chronic Constipation, GERD Genitourinary History: Reports: None 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: Musculoskeletal History: Reports: Back Pain, Chronic Psychiatric History: Reports: Depression Endocrine/Metabolic History: Reports: Diabetes, Type II Hematologic History: Reports: B12 Deficiency - Infectious Disease History Infectious Disease History: Reports: Chicken Pox - Past Surgical History HEENT Surgical History: Reports: Cataract Surgery, Other (See Below) Other HEENT Surgeries/Procedures: ear surgery GI Surgical History: Reports: Bariatric Procedure, Cholecystectomy, Colonoscopy , Other (See Below) Other GI Surgeries/Procedures: gastrectomy Female Surgical History: Reports: Hysterectomy, Salpingo-Oophorectomy Musculoskeletal Surgical History: Reports: Hip Replacement Social & Family History - Family History Family Medical History: Noncontributory - Tobacco Use Smoking Status *Q: Unknown Ever Smoked - Caffeine Use Caffeine Use: Reports: None - Recreational Drug Use Recreational Drug Use: No Review of Systems - Review of Systems Review Of Systems: ROS reveals no pertinent complaints other than HPI. Musculoskeletal: Reports: Joint Pain (R anterior knee) Skin: Reports: No Symptoms ED EXAM, GENERAL - Physical Exam Exam: See Below Exam Limited By: No Limitations General Appearance: Alert, WD/WN, No Apparent Distress Extremities: Normal Inspection, No Pedal Edema, Limited Range of Motion (slight limitation to full flexion as patient says knee gets tight. ), Other (anterior joint line tenderness, no ligamentous laxity. ). No: Normal Range of Motion, Non-Tender, Pedal Edema, Joint Swelling Neurological: Alert, Oriented, CN II-XII Intact, Normal Cognition, No Motor/ Sensory Deficits Psychiatric: Normal Affect, Normal Mood Skin Exam: Warm, Dry, Intact, Normal Color, No Rash Course - Vital Signs Last Recorded V/S: Last Vital Signs Temp 36.4 C 03/18/19 18:39 Pulse 59 L 03/18/19 18:39 Resp 16 03/18/19 18:39 BP 159/73 H 03/18/19 18:39 Pulse Ox 98 03/18/19 18:39 Departure - Departure Time of Disposition: 18:51 Disposition: Home, Self-Care 01 Condition: Fair Clinical Impression: Acute meniscal tear of right knee Qualifiers: Encounter type: initial encounter Qualified Code(s): S83.206A - Unspecified tear of unspecified meniscus, current injury, right knee, initial encounter - Discharge Information *PRESCRIPTION DRUG MONITORING PROGRAM REVIEWED*: No *COPY OF PRESCRIPTION DRUG MONITORING REPORT IN PATIENT DARIELA: No Referrals: Kulwant Abraham NP [Primary Care Provider] - Additional Instructions: Take acetaminophen 1000 mg every 6 hrs for pain relief. Wear YA for support. F/ U with Dr. Bird in the orthopedic clinic, someone will call you to schedule.
== END 2019-03-18 19:07 | disposition home or self-care (01) ==
LOC: JP.ED 17:43
DX: S83.206A Unspecified tear of unspecified meniscus, current injury, right knee, initial encounter (principal); I10 Essential (primary) hypertension; E11.9 Type 2 diabetes mellitus without complications; K21.9 Gastro-esophageal reflux disease without esophagitis; J45.909 Unspecified asthma, uncomplicated; Z79.899 Other long term (current) drug therapy; Z91.048 Other nonmedicinal substance allergy status; X58.XXXA Exposure to other specified factors, initial encounter
CPT/HCPCS: 99283; A9270-GY

== ENCOUNTER 2019-06-12 17:05 | Emergency (ER) | payer MEDICARE ==
[2019-06-12 17:22] VITALS: BP 132/71; PULSE 70
--- NOTE | 2019-06-12 17:37 | EDM.PDOC ---
ED HPI GENERAL MEDICAL PROBLEM - General Chief Complaint: Gastrointestinal Problem Stated Complaint: HEARTBURN SINCE LAST NIGHT Time Seen by Provider: 06/12/19 17:35 Source of Information: Reports: Patient, Old Records History Limitations: Reports: No Limitations - History of Present Illness INITIAL COMMENTS - FREE TEXT/NARRATIVE: 74 yo NA female presents with heart burn all day today. Does OK with swallowing if she chews her food carefully. No fever. Sx's not worse with exertion. No diaphoresis or SOB. Took her medication for heart burn as prescribed. No black or bloody stools. No radiation of the pain. Onset: Today Onset Date: 06/12/19 Duration: Hour(s):, Constant (slightly better now than earlier. ) Location: Reports: Chest (substernal) Quality: Reports: Burning Severity: Mild Improves with: Reports: Other (not sure) Worsens with: Reports: Other (not sure) Context: Reports: Other (see HPI) Associated Symptoms: Reports: Chest Pain (substernal burning). Denies: Diaphoresis, Fever/Chills, Nausea/Vomiting, Rash, Shortness of Breath Treatments AOC DIRECTOR INTELLIGENCE OFFICER: Reports: Other (see below) (usual meds) Epigastric Pain Score (Numeric/FACES): 4 - Related Data Allergies Allergy/AdvReac Type Severity Reaction Status Date / Time nickel Allergy Swelling Uncoded 03/18/19 18:30 pollen Allergy Difficulty Uncoded 03/18/19 18:30 Breathing Home Meds: Home Meds Lisinopril 10 mg PO DAILY 08/14/15 [History] Calcium Carbonate [Tums Extra Strength] 1,500 mg PO BID 09/04/17 [History] Docusate Sodium/Sennosides [Senokot-S] 2 tab PO BID 09/04/17 [History] Ferrous Fumarate/Vitamin C [Vitron-C] 125 - 200 mg PO DAILY 09/04/17 [History] Trolamine Salicylate [Aspercreme] 1 applic TOP DAILY 09/04/17 [History] prednisoLONE acetate [Pred Forte 1% Ophth Susp] 3 drop EARBOTH DAILY 09/04/17 [ History] traMADol HCl [Tramadol HCl] 50 mg PO BID PRN 09/04/17 [History] Potassium Chloride [K-Tab ER] 20 meq PO TID 09/25/17 [History] Pantoprazole Sodium [Protonix] 40 mg PO DAILY 11/20/17 [History] Acetaminophen [Tylenol Extra Strength] 1,000 mg PO Q6H #100 tablet 01/05/18 [Rx] HCTZ/Triamterene [Maxzide 25-37.5 MG] 1 each PO DAILY tablet 01/05/18 [Rx] lisinopriL [Prinivil] 10 mg PO DAILY tablet 01/05/18 [Rx] prednisoLONE acetate [Pred Forte 1% Ophth Susp] 0 ml EARBOTH DAILY bottle 01/05 [Rx] Past Medical History HEENT History: Reports: Impaired Vision Other HEENT History: reading glasses Cardiovascular History: Reports: High Cholesterol, Hypertension Respiratory History: Reports: Asthma Gastrointestinal History: Reports: Chronic Constipation, GERD Genitourinary History: Reports: None 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: Musculoskeletal History: Reports: Back Pain, Chronic, Other (See Below) Other Musculoskeletal History: R knee pain in ED 03/18/19 Psychiatric History: Reports: Depression Endocrine/Metabolic History: Reports: Diabetes, Type II Hematologic History: Reports: B12 Deficiency - Infectious Disease History Infectious Disease History: Reports: Chicken Pox - Past Surgical History HEENT Surgical History: Reports: Cataract Surgery, Other (See Below) Other HEENT Surgeries/Procedures: ear surgery GI Surgical History: Reports: Bariatric Procedure, Cholecystectomy, Colonoscopy , Other (See Below) Other GI Surgeries/Procedures: gastrectomy Female Surgical History: Reports: Hysterectomy, Salpingo-Oophorectomy Musculoskeletal Surgical History: Reports: Hip Replacement Dermatological Surgical History: Reports: None Social & Family History - Family History Family Medical History: Noncontributory - Tobacco Use Smoking Status *Q: Never Smoker - Caffeine Use Caffeine Use: Reports: Coffee - Recreational Drug Use Recreational Drug Use: No ED ROS GENERAL - Review of Systems Review Of Systems: See Below Constitutional: Reports: No Symptoms Cardiovascular: Reports: Other (substernal burning) GI/Abdominal: Denies: Black Stool, Bloody Stool, Hematemesis, Melena, Nausea, Vomiting : Reports: No Symptoms Musculoskeletal: Reports: No Symptoms Skin: Reports: No Symptoms Neurological: Reports: No Symptoms ED EXAM, GI/ABD - Physical Exam Exam: See Below Exam Limited By: No Limitations General Appearance: Alert, WD/WN, No Apparent Distress Eyes: Bilateral: Normal Appearance Ears: Normal External Exam, Normal Canal, Hearing Grossly Normal Nose: Normal Inspection, No Blood Throat/Mouth: Normal Inspection, Normal Lips, Normal Oropharynx, Normal Voice, No Airway Compromise Head: Atraumatic, Normocephalic Neck: Normal Inspection, Non-Tender Respiratory/Chest: No Respiratory Distress, Lungs Clear, Normal Breath Sounds, No Accessory Muscle Use Cardiovascular: Regular Rate, Rhythm, No Edema GI/Abdominal Exam: Normal Bowel Sounds, Soft, Non-Tender, No Distention Back Exam: Normal Inspection. No: CVA Tenderness (R), CVA Tenderness (L) Extremities: Normal Inspection, Normal Range of Motion, Non-Tender, No Pedal Edema Neurological: Alert, Oriented, CN II-XII Intact, Normal Cognition, No Motor/ Sensory Deficits Psychiatric: Normal Affect, Normal Mood Skin Exam: Warm, Dry, Intact, Normal Color, No Rash EKG INTERPRETATION EKG Date: 06/12/19 Time: 17:25 Rhythm: NSR Rate (Beats/Min): 64 [place]: Normal P-Wave: Present QRS: Normal ST-T: Normal QT: Normal Comparison: No Change Course - Vital Signs Last Recorded V/S: Last Vital Signs Temp 36.1 C 06/12/19 17:25 Pulse 70 06/12/19 17:25 Resp 16 06/12/19 17:25 BP 132/71 06/12/19 17:25 Pulse Ox 99 06/12/19 17:25 - Orders/Labs/Meds Orders: Active Orders 24 hr Category Date Time Status Cardiac Monitoring [RC] .As Directed Care 06/12/19 17:13 Active EKG Documentation Completion [RC] ASDIRECTED Care 06/12/19 17:12 Active Alum Hydrox/Mag Hydrox/Simeth [Mag-Al Plus] 15 ml Med 06/12/19 17:40 Ordered Lidocaine 2% [Xylocaine 2% Viscous] 15 ml PO ONETIME EKG 12 Lead [EK] Routine Ther 06/12/19 17:12 Ordered Medication Orders Al Hydroxide/Mg Hydroxide 15 (ml/ Lidocaine HCl 15 ml) 0 ml PO ONETIME ONE Stop: 06/12/19 17:41 Meds: Medications Generic Name Dose Route Start Last Admin Trade Name Freq PRN Reason Stop Dose Admin Al Hydroxide/Mg Hydroxide 15 0 ml 06/12/19 17:40 ml/ Lidocaine HCl 15 ml PO 06/12/19 17:41 ONETIME ONE - Re-Assessments/Exams Free Text/Narrative Re-Assessment/Exam: 06/12/19 17:46 GI cocktail was given-relief achieved Departure - Departure Time of Disposition: 17:52 Disposition: Home, Self-Care 01 Condition: Fair Clinical Impression: Esophagitis - Discharge Information *PRESCRIPTION DRUG MONITORING PROGRAM REVIEWED*: No *COPY OF PRESCRIPTION DRUG MONITORING REPORT IN PATIENT DARIELA: No Instructions: Esophagitis Referrals: Kulwant Abraham NP [Primary Care Provider] - Forms: ED Department Discharge Additional Instructions: Continue your current medications. Add Gaviscon 30 ml after meals and at bedtime as needed for heart burn symptoms. Recheck with your provider as needed. It is OK to take acetaminophen for heart burn, 2 every 4-6 hrs. Avoid eating before bedtime, caffeine, carbonated beverages, ibuprofen or Aleve. Sepsis Event Note - Evaluation Sepsis Screening Result: No Definite Risk - Focused Exam Vital Signs: Vital Signs Temp Pulse Resp BP Pulse Ox 06/12/19 17:25 36.1 C 70 16 132/71 99 06/12/19 17:21 36.1 C 70 16 132/71 99 Date Exam was Performed: 06/12/19 Time Exam was Performed: 17:41 - My Orders Last 24 Hours: My Active Orders 06/12/19 17:12 EKG Documentation Completion [RC] ASDIRECTED EKG 12 Lead [EK] Routine 06/12/19 17:13 Cardiac Monitoring [RC] .As Directed 06/12/19 17:40 Alum Hydrox/Mag Hydrox/Simeth [Mag-Al Plus] 15 ml Lidocaine 2% [Xylocaine 2% Viscous] 15 ml PO ONETIME - Assessment/Plan Last 24 Hours: My Active Orders 06/12/19 17:12 EKG Documentation Completion [RC] ASDIRECTED EKG 12 Lead [EK] Routine 06/12/19 17:13 Cardiac Monitoring [RC] .As Directed 06/12/19 17:40 Alum Hydrox/Mag Hydrox/Simeth [Mag-Al Plus] 15 ml Lidocaine 2% [Xylocaine 2% Viscous] 15 ml PO ONETIME
[2019-06-12] MEDS ORDERED: Alum Hydrox/Mag Hydrox/Simeth 15 ML, Lidocaine 2% 15 ML PO ONE ×2 (17:40)
== END 2019-06-12 18:09 | disposition home or self-care (01) ==
LOC: JP.ED 17:05
DX: K20.9 Esophagitis, unspecified (principal); I10 Essential (primary) hypertension; E11.9 Type 2 diabetes mellitus without complications; E78.00 Pure hypercholesterolemia, unspecified; J45.909 Unspecified asthma, uncomplicated; F32.9 Major depressive disorder, single episode, unspecified; Z90.49 Acquired absence of other specified parts of digestive tract; Z79.899 Other long term (current) drug therapy; Z91.048 Other nonmedicinal substance allergy status
CPT/HCPCS: 93005; 93010; 99283; A9270

== ENCOUNTER 2019-06-28 08:36 | Day surgery (SDC) | payer MEDICARE ==
[2019-06-28] MEDS ORDERED: fentaNYL 100 MCG/2 ML SDV ONE (09:59)
[2019-06-28] MEDS ORDERED: Midazolam 1 MG/ML 2 ML SDV ONE (09:59)
[2019-06-28] MEDS ORDERED: Propofol 200 MG/20 ML SDV ONE (09:59)
[2019-06-28] MEDS ORDERED: Glycopyrrolate 0.2 MG/ML 2 ML SDV IVPUSH ONE (10:00)
[2019-06-28] MEDS ORDERED: Cyanocobalamin (Vitamin B12) 1,000 MCG/ML SDV IM ONE (10:00)
[2019-06-28] MEDS ORDERED: Lactated Ringers 1,000 ML IV SCH (10:00)
[2019-06-28] MEDS ORDERED: Vitamin A 100,000 Units/2 ML SDV IM ONE (10:30)
[2019-06-28] MEDS ORDERED: MVI, Adult with Vitamin K 10 ML, Thiamine 200 MG, Chromium/Copper/Mang/Selen/Zn 1 ML in... IV ONE ×4 (11:00)
[2019-06-28 12:41] VITALS: BP 139/70; PULSE 62
--- NOTE | 2019-06-30 11:26 | OR ---
DATE OF PROCEDURE: 06/28/2019 SURGEON: Brian Jones MD PREOPERATIVE DIAGNOSIS: Possible stricture at esophagojejunostomy. POSTOPERATIVE DIAGNOSIS: Mild stricture at esophagojejunostomy. OPERATIVE PROCEDURE: Upper GI endoscopy with dilation of esophagojejunostomy (22893). ANESTHESIA: IV sedation. INDICATION FOR PROCEDURE: This is a 74-year-old status post revision of Beverly-en-Y gastric bypass with presently having anatomy consistent with esophagojejunostomy. She presents with symptoms suggestive of stricturing. She has had history of ulcers in this area in the past as well. Plan is to proceed with upper GI endoscopy with biopsies and/or dilation as indicated. Potential risks including bleeding and perforation were discussed, and the patient wishes to proceed. DETAILS OF PROCEDURE: The patient was taken to the operating room, placed in a left lateral decubitus position. IV sedation was administered, after which the upper GI endoscope was passed orally through the length of esophagus and into the area of the esophagojejunostomy and from there roughly 20 cm into the Beverly limb. Proximally, there was no significant inflammation nor was there really any inflammation at the esophagojejunostomy. This was slightly narrow, but the scope was able to be pass through it. The remainder of the visualized Beverly limb was unremarkable. At this point, the Bard gastrointestinal catheter was then centered across the anastomosis and inflated to 45- Filipino size. This was held in position for 1 minute, after which the balloon catheter was deflated and withdrawn. There was some visible dilation present and no complications were evident. The patient was taken to the recovery room in satisfactory condition. Brian Jones MD /[id number]
== END 2019-06-28 13:15 | disposition home or self-care (01) ==
LOC: JP.SDS 08:36
PROVIDERS: ATTEND Surgery
DX: K91.89 Other postprocedural complications and disorders of digestive system (principal); K21.9 Gastro-esophageal reflux disease without esophagitis; K90.9 Intestinal malabsorption, unspecified; I10 Essential (primary) hypertension; E11.9 Type 2 diabetes mellitus without complications; Z98.0 Intestinal bypass and anastomosis status; Z91.048 Other nonmedicinal substance allergy status
CPT/HCPCS: 43249; J2704; J3010; J3411; J3420; J3490; J7120; J2250

== ENCOUNTER 2019-08-07 10:11 | Emergency (ER) | payer MEDICARE ==
[2019-08-07 10:27] VITALS: BP 146/52; PULSE 51
--- NOTE | 2019-08-07 10:44 | EDM.PDOC ---
ED HPI GENERAL MEDICAL PROBLEM - General Chief Complaint: Lower Extremity Injury/Pain Stated Complaint: LT HIP PAIN Time Seen by Provider: 08/07/19 10:39 Source of Information: Reports: Patient History Limitations: Reports: No Limitations - History of Present Illness INITIAL COMMENTS - FREE TEXT/NARRATIVE: pt went to walk in today with pain in her left hip in the range of a 4. Xrays were obtained and there was a possible pelvic fracture. She is very osteopenic. Onset: Other (pt had a acute onset of pain on fri. ) Duration: Hour(s):, Other ( this has actually gotten ) Location: Reports: Lower Extremity, Left Associated Symptoms: Reports: No Other Symptoms - Related Data Allergies Allergy/AdvReac Type Severity Reaction Status Date / Time nickel Allergy Swelling Uncoded 06/28/19 09:05 pollen Allergy Difficulty Uncoded 06/28/19 09:05 Breathing Home Meds: Home Meds Potassium Chloride [K-Tab ER] 20 meq PO TID 09/25/17 [History] Pantoprazole Sodium [Protonix] 40 mg PO DAILY 11/20/17 [History] lisinopriL [Prinivil] 10 mg PO DAILY tablet 01/05/18 [Rx] Lidocaine 2% [Xylocaine 2% Viscous] 5 ml PO Q6H PRN 06/24/19 [History] Magnesium Oxide [Magnesium] 400 mg PO DAILY 06/24/19 [History] Sucralfate [Carafate] 1 gm PO QID 06/24/19 [History] Cholecalciferol (Vitamin D3) [Vitamin D3] 125 mcg PO DAILY 06/28/19 [History] Cyanocobalamin/Cobamamide [Vitamin B-12 5,000 Mcg Tab Sl] 1,000 mcg SL DAILY [History] Amylase/Lipase/Protease [Creon DR 24,000 Unit] 24,000 unit PO TID 08/07/19 [ History] Cyanocobalamin (Vitamin B-12) [Vitamin B-12] 1,000 mcg PO DAILY 08/07/19 [ History] Vitamin A 20,000 unit PO DAILY 08/07/19 [History] Past Medical History HEENT History: Reports: Cataract, Hard of Hearing, Impaired Vision Other HEENT History: reading glasses Cardiovascular History: Reports: High Cholesterol, Hypertension Respiratory History: Reports: Asthma Gastrointestinal History: Reports: Cholelithiasis, Chronic Constipation, GERD Genitourinary History: Reports: None 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: Musculoskeletal History: Reports: Back Pain, Chronic, Other (See Below) Other Musculoskeletal History: R knee pain in ED 03/18/19 Psychiatric History: Reports: Depression Endocrine/Metabolic History: Reports: Diabetes, Type II Hematologic History: Reports: B12 Deficiency - Infectious Disease History Infectious Disease History: Reports: Chicken Pox - Past Surgical History HEENT Surgical History: Reports: Cataract Surgery, Other (See Below) Other HEENT Surgeries/Procedures: ear surgery Cardiovascular Surgical History: Reports: None Respiratory Surgical History: Reports: None GI Surgical History: Reports: Bariatric Procedure, Cholecystectomy, Colonoscopy , Other (See Below) Other GI Surgeries/Procedures: gastrectomy Female Surgical History: Reports: Hysterectomy, Salpingo-Oophorectomy Endocrine Surgical History: Reports: None Musculoskeletal Surgical History: Reports: Hip Replacement Dermatological Surgical History: Reports: None Social & Family History - Family History Family Medical History: Noncontributory - Tobacco Use Smoking Status *Q: Never Smoker - Caffeine Use Caffeine Use: Reports: Coffee - Recreational Drug Use Recreational Drug Use: No Review of Systems - Review of Systems Review Of Systems: See Below Constitutional: Reports: No Symptoms Eyes: Reports: No Symptoms Ears: Reports: No Symptoms Nose: Reports: No Symptoms Mouth/Throat: Reports: No Symptoms Respiratory: Reports: No Symptoms Cardiovascular: Reports: No Symptoms GI/Abdominal: Reports: Decreased Appetite Genitourinary: Reports: No Symptoms Musculoskeletal: Reports: Other (pain in left hip. Xrays at the clinic showed a possible fracture in the pelvis. ) Skin: Reports: No Symptoms ED EXAM, GENERAL - Physical Exam Exam: See Below Free Text/Narrative:: pt arrived with pain in her hip and pelvis. It is now better She states it was alot worse on wed. It is getting better. She had xrays at the clinic with a question of a pelvic fractuire. Exam Limited By: No Limitations General Appearance: Alert, Anxious Extremities: Other (pain in the let hip area. She is doing better today than on wed. Her cat scan of the pelvis did not show a pelvic fracture. ) Neurological: Alert, Oriented, Normal Cognition Course - Vital Signs Last Recorded V/S: Last Vital Signs Temp 35.3 C L 08/07/19 10:35 Pulse 51 L 08/07/19 10:35 Resp 13 08/07/19 10:35 BP 146/52 H 08/07/19 10:35 Pulse Ox 95 08/07/19 10:35 - Re-Assessments/Exams Free Text/Narrative Re-Assessment/Exam: 08/07/19 11:56 cat scan did not reveal a pelvic fractuire. Her bones are very demineralized. Departure - Departure Time of Disposition: 11:57 Disposition: Home, Self-Care 01 Condition: Fair Clinical Impression: Left hip pain - Discharge Information Instructions: Joint Pain, Clmi-nx-Cign Referrals: Kulwant Abraham NP [Primary Care Provider] - Forms: ED Department Discharge Care Plan Goals: heating pad to the left hip and pelvic area. Try to rest more than usual. Soak in a tub if available. tramodol 50mg bid as needed for pain, may also use tylenol between the tramodol. Sepsis Event Note - Evaluation Sepsis Screening Result: No Definite Risk - Focused Exam Vital Signs: Vital Signs Temp Pulse Resp BP Pulse Ox 08/07/19 10:35 35.3 C L 51 L 13 146/52 H 95 08/07/19 10:25 35.3 C L 51 L 13 146/52 H 95 Date Exam was Performed: 08/07/19 Time Exam was Performed: 12:01
--- NOTE | 2019-08-07 11:49 | CRLCT ---
INDICATION: Left-sided pain. Possible fracture. TECHNIQUE: Axial images. Sagittal and coronal reconstructions. COMPARISON: Radiographs from earlier in the day. FINDINGS: Diffusely decreased bone density and beam hardening artifact from the right hip hardware compromises the examination. No acute pelvic fracture or proximal left femoral fracture is identified. There are advanced degenerative changes seen in the visualized lower lumbar spine, including severe spinal stenosis at the L4-5 and L5-S1 levels. Incidentally noted is a transitional lumbosacral segment. 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 Degenerative changes are seen involving the pubic symphysis as well as the left hip joint. Right hip arthroplasty is partially visualized, and appears unremarkable. Atherosclerotic changes. IMPRESSION: 1. No CT evidence of an acute pelvic or proximal femur fracture. 2. Other findings as noted. Dictated by Reagan Mane MD @ 08/07/2019 11:48:00 AM Please note that all CT scans at this facility use dose modulation, iterative reconstruction, and/or weight-based dosing when appropriate to reduce radiation dose to as low as reasonably achievable. Dictated by: Reagan Mane MD @ 08/07/2019 11:48:03 (Electronically Signed)
== END 2019-08-07 12:10 | disposition home or self-care (01) ==
LOC: JP.ED 10:11
DX: M25.552 Pain in left hip (principal); I10 Essential (primary) hypertension; E11.9 Type 2 diabetes mellitus without complications; J45.909 Unspecified asthma, uncomplicated; K21.9 Gastro-esophageal reflux disease without esophagitis; Z91.048 Other nonmedicinal substance allergy status; Z79.899 Other long term (current) drug therapy
CPT/HCPCS: 72192; 99283-25

== ENCOUNTER 2019-11-12 06:50 | Day surgery (SDC) | payer MEDICARE ==
[2019-11-12] MEDS ORDERED: Propofol 200 MG/20 ML SDV ONE (07:21)
[2019-11-12] MEDS ORDERED: fentaNYL 100 MCG/2 ML SDV ONE (07:21)
[2019-11-12] MEDS ORDERED: Midazolam 1 MG/ML 2 ML SDV ONE (07:21)
[2019-11-12] MEDS ORDERED: Lactated Ringers 1,000 ML IV ONE (07:30)
[2019-11-12] MEDS ORDERED: MVI, Adult with Vitamin K 10 ML, Thiamine 200 MG, Chromium/Copper/Mang/Selen/Zn 1 ML in... IV ONE ×4 (07:30)
[2019-11-12] MEDS ORDERED: Cyanocobalamin (Vitamin B12) 1,000 MCG/ML SDV IM ONE (07:30)
[2019-11-12] MEDS ORDERED: Glycopyrrolate 0.2 MG/ML 2 ML SDV IVPUSH ONE (07:30)
[2019-11-12 10:12] VITALS: BP 156/78; PULSE 71
--- NOTE | 2019-11-24 15:22 | OR ---
DATE OF PROCEDURE: 11/12/2019 SURGEON: Brian Jones MD PREOPERATIVE DIAGNOSIS: Epigastric discomfort, status post Beverly-en-Y gastric bypass. POSTOPERATIVE DIAGNOSIS: Mild inflammation involving distal esophagus above the esophagojejunostomy. OPERATIVE PROCEDURE: Upper gastrointestinal endoscopy. ANESTHESIA: IV sedation. INDICATION FOR PROCEDURE: A 74-year-old status post revision of Beverly-en-Y gastric bypass. She has had epigastric discomfort, along with some mild dysphagia and presently is on Protonix 40 mg a day along with Carafate. Plan is to proceed with upper GI endoscopy with biopsies and/or dilation as indicated. Potential risks including bleeding and perforation were discussed and the patient wishes to proceed. DETAILS OF PROCEDURE: The patient was taken to the operating room and placed in a left lateral decubitus position. IV sedation was administered, after which the upper GI endoscope was passed orally through the length of the esophagus, through the esophagojejunostomy roughly 20 cm into the Beverly limb. The patient was noted to have only some very mild inflammation of the distal esophagus, this area being very slightly edematous in appearance. There was no stricturing or ulceration noted and overall at this point it would appear that the patient probably needs some additional coaching in terms of eating behavior. Of note, she has gained quite a bit of weight since the last intervention, consisting of dilation of that area, so in that regard, I think we are doing fairly well. No changes in medical management will be undertaken. Scope was then withdrawn. Procedure then concluded. The patient will be set up for followup with Dr. Jessica Fitzgerald at [facility] in roughly 1 month. Brian Jones MD /[id number] MTDD
== END 2019-11-12 10:30 | disposition home or self-care (01) ==
LOC: JP.SDS 06:50
PROVIDERS: ATTEND Surgery
DX: K21.0 Gastro-esophageal reflux disease with esophagitis (principal); J45.909 Unspecified asthma, uncomplicated; I10 Essential (primary) hypertension; K21.9 Gastro-esophageal reflux disease without esophagitis; E11.9 Type 2 diabetes mellitus without complications; Z93.4 Other artificial openings of gastrointestinal tract status; Z98.84 Bariatric surgery status
CPT/HCPCS: 43235; J2250; J2704; J3010; J3411; J3420; J3490; J7120

== ENCOUNTER 2020-07-11 15:51 | Emergency (ER) | payer MEDICARE ==
--- NOTE | 2020-07-11 17:06 | EDM.PDOC ---
ED HPI GENERAL MEDICAL PROBLEM - General Chief Complaint: Abdominal Pain Stated Complaint: ABD PAIN Time Seen by Provider: 07/11/20 17:00 Source of Information: Reports: Patient History Limitations: Reports: No Limitations - History of Present Illness INITIAL COMMENTS - FREE TEXT/NARRATIVE: 75-year-old female with chronic gastritis, presents with upper abdominal pain that is worse for the last 2 to 3 days. No nausea or vomiting. It hurts to eat. No radiation of pain to the back, no diarrhea or abdominal distention. Onset: Gradual Duration: Day(s): (Worse the last couple of days) Location: Reports: Abdomen (Epigastric area) Associated Symptoms: Reports: No Other Symptoms - Related Data Allergies Allergy/AdvReac Type Severity Reaction Status Date / Time nickel Allergy Swelling Uncoded 11/12/19 07:08 pollen Allergy Difficulty Uncoded 11/12/19 07:08 Breathing Home Meds: Home Meds Pantoprazole Sodium [Protonix] 40 mg PO DAILY 11/20/17 [History] Sucralfate [Carafate] 1 gm PO QID 06/24/19 [History] Cyanocobalamin/Cobamamide [Vitamin B-12 5,000 Mcg Tab Sl] 1,000 mcg SL DAILY 06/28/19 [History] Amylase/Lipase/Protease [[place] DR 24,000 Unit] 24,000 unit PO TID 08/07/19 [History] Vitamin A 25,000 unit PO DAILY 08/07/19 [History] Pediatric Multivit #31/Iron/Fa [Gnp Children's Chewables] 1 tab PO BID 11/10/19 [History] Zinc 50 mg PO DAILY 11/10/19 [History] Calcium Citrate/Vitamin D3 [Calcium Citrate - Vit D Caplet] 2 tab PO BID 11/12/19 [History] Copper Gluconate [Copper] 2 mg PO DAILY 07/03/20 [History] Magnesium Oxide 400 mg PO DAILY 07/03/20 [History] Meclizine HCl 25 mg PO TID PRN 07/03/20 [History] Potassium Chloride 20 meq PO BID 07/03/20 [History] Triamcinolone Acetonide [Triamcinolone Acetonide 0.1% Crm] 1 applic TOP TID PRN 07/03/20 [History] Triamterene/Hydrochlorothiazid [Triamterene-HCTZ 37.5-25 MG] 1 cap PO DAILY 07/03/20 [History] Trolamine Salicylate/Aloe Vera [Aspercreme 10%] 1 applic TOP ASDIRECTED 07/03/20 [History] lisinopriL [Prinivil] 20 mg PO DAILY 07/03/20 [History] prednisoLONE Acetate [Prednisolone Acetate] 3 drop EARBOTH DAILY 07/03/20 [History] traMADol [Ultram] 50 mg PO BID PRN 07/03/20 [History] Past Medical History HEENT History: Reports: Cataract, Hard of Hearing, Impaired Vision Other HEENT History: reading glasses Cardiovascular History: Reports: High Cholesterol, Hypertension Respiratory History: Reports: Asthma Gastrointestinal History: Reports: Cholelithiasis, Chronic Constipation, GERD Genitourinary History: Reports: None FINGER WAVER History: Reports: Musculoskeletal History: Reports: Back Pain, Chronic, Other (See Below) Other Musculoskeletal History: R knee pain in ED 03/18/19. neck pain Psychiatric History: Reports: Depression Endocrine/Metabolic History: Reports: Diabetes, Type II Hematologic History: Reports: B12 Deficiency - Infectious Disease History Infectious Disease History: Reports: Chicken Pox - Past Surgical History HEENT Surgical History: Reports: Cataract Surgery, Other (See Below) Other HEENT Surgeries/Procedures: ear surgery Cardiovascular Surgical History: Reports: None Respiratory Surgical History: Reports: None GI Surgical History: Reports: Bariatric Procedure, Cholecystectomy, Colonoscopy, EGD, Other (See Below) Other GI Surgeries/Procedures: gastrectomy Female Surgical History: Reports: Hysterectomy, Salpingo-Oophorectomy Endocrine Surgical History: Reports: None Musculoskeletal Surgical History: Reports: Hip Replacement Other Musculoskeletal Surgeries/Procedures:: right hip Dermatological Surgical History: Reports: None Social & Family History - Family History Family Medical History: No Pertinent Family History - Tobacco Use Tobacco Use Status *Q: Never Tobacco User - Caffeine Use Caffeine Use: Reports: Coffee ED ROS GENERAL - Review of Systems Review Of Systems: See Below Constitutional: Denies: Fever, Chills, Malaise HEENT: Reports: No Symptoms Respiratory: Denies: Shortness of Breath Cardiovascular: Denies: Chest Pain GI/Abdominal: Reports: Abdominal Pain. Denies: Nausea, Vomiting : Reports: No Symptoms Skin: Reports: No Symptoms ED EXAM, GI/ABD - Physical Exam Exam: See Below Exam Limited By: No Limitations General Appearance: Alert, No Apparent Distress Eyes: Bilateral: Normal Appearance Head: Atraumatic Respiratory/Chest: No Respiratory Distress, Lungs Clear Cardiovascular: Regular Rate, Rhythm GI/Abdominal Exam: Soft, Tender (Reacts with a small amount of tenderness directly over the epigastric area but no other area of tenderness, no guarding or rebound) Neurological: Alert, Oriented Psychiatric: Normal Affect, Normal Mood Skin Exam: Warm, Dry Course - Vital Signs Last Recorded V/S: Last Vital Signs Temp 97.5 F 07/11/20 16:45 Pulse 63 07/11/20 18:00 Resp 16 07/11/20 16:45 BP 134/70 07/11/20 18:00 Pulse Ox 96 07/11/20 18:00 - Orders/Labs/Meds Orders: Active Orders 24 hr Category Date Time Status CULTURE URINE [RM] Stat Lab 07/11/20 17:25 Results Labs: Laboratory Tests 07/11/20 07/11/20 07/11/20 Range/Units 17:07 17:07 17:07 WBC 4.9 (4.5-11.0) K/uL RBC 3.83 (3.30-5.50) M/uL Hgb 11.6 L D (12.0-15.0) g/dL Hct 37.7 (36.0-48.0) % MCV 98 (80-98) fL MCH 30 (27-31) pg MCHC 31 L (32-36) % Plt Count 266 (150-400) K/uL Neut % (Auto) 70 H (36-66) % Lymph % (Auto) 22 L (24-44) % [place] % (Auto) 8 H (2-6) % Eos % (Auto) 1 L (2-4) % Baso % (Auto) 1 (0-1) % Sodium 138 L (140-148) mmol/L Potassium 4.6 (3.6-5.2) mmol/L Chloride 104 (100-108) mmol/L Carbon Dioxide 24 (21-32) mmol/L Anion Gap 14.6 H (5.0-14.0) mmol/L BUN 22 H D (7-18) mg/dL Creatinine 0.6 (0.6-1.0) mg/dL Est Cr Clr Drug Dosing 73.51 mL/min Estimated GFR (MDRD) > 60 (>60) Glucose 123 H (74-106) mg/dL Calcium 9.0 D (8.5-10.1) mg/dL Total Bilirubin 1.0 D (0.2-1.0) mg/dL AST 19 (15-37) U/L ALT 33 (12-78) U/L Alkaline Phosphatase 121 H (46-116) U/L Total Protein 6.6 (6.4-8.2) g/dL Albumin 3.6 (3.4-5.0) g/dL Globulin 3.0 (2.3-3.5) g/dL Albumin/Globulin Ratio 1.2 (1.2-2.2) Lipase 74 (73-393) U/L Urine Color (YELLOW) Urine Appearance (CLEAR) Urine pH (5.0-8.0) Ur Specific [place] (1.008-1.030) Urine Protein (NEGATIVE) mg/dL Urine Glucose (UA) (NEGATIVE) mg/dL Urine Ketones (NEGATIVE) mg/dL Urine Occult Blood (NEGATIVE) Urine Nitrite (NEGATIVE) Urine Bilirubin (NEGATIVE) Urine Urobilinogen (0.2-1.0) EU/dL Ur Leukocyte Esterase (NEGATIVE) Urine RBC (0-5) Urine WBC (0-5) Ur Epithelial Cells Amorphous Sediment Urine Bacteria Urine Mucus 07/11/20 Range/Units 17:12 WBC (4.5-11.0) K/uL RBC (3.30-5.50) M/uL Hgb (12.0-15.0) g/dL Hct (36.0-48.0) % MCV (80-98) fL MCH (27-31) pg MCHC (32-36) % Plt Count (150-400) K/uL Neut % (Auto) (36-66) % Lymph % (Auto) (24-44) % [place] % (Auto) (2-6) % Eos % (Auto) (2-4) % Baso % (Auto) (0-1) % Sodium (140-148) mmol/L Potassium (3.6-5.2) mmol/L Chloride (100-108) mmol/L Carbon Dioxide (21-32) mmol/L Anion Gap (5.0-14.0) mmol/L BUN (7-18) mg/dL Creatinine (0.6-1.0) mg/dL Est Cr Clr Drug Dosing mL/min Estimated GFR (MDRD) (>60) Glucose (74-106) mg/dL Calcium (8.5-10.1) mg/dL Total Bilirubin (0.2-1.0) mg/dL AST (15-37) U/L ALT (12-78) U/L Alkaline Phosphatase (46-116) U/L Total Protein (6.4-8.2) g/dL Albumin (3.4-5.0) g/dL Globulin (2.3-3.5) g/dL Albumin/Globulin Ratio (1.2-2.2) Lipase (73-393) U/L Urine Color Yellow (YELLOW) Urine Appearance Slightly cloudy A (CLEAR) Urine pH 5.0 (5.0-8.0) Ur Specific [place] 1.025 (1.008-1.030) Urine Protein Negative (NEGATIVE) mg/dL Urine Glucose (UA) Negative (NEGATIVE) mg/dL Urine Ketones Negative (NEGATIVE) mg/dL Urine Occult Blood Small H (NEGATIVE) Urine Nitrite Positive H (NEGATIVE) Urine Bilirubin Negative (NEGATIVE) Urine Urobilinogen 1.0 (0.2-1.0) EU/dL Ur Leukocyte Esterase Negative (NEGATIVE) Urine RBC 0-5 (0-5) Urine WBC 0-5 (0-5) Ur Epithelial Cells Few Amorphous Sediment Not seen Urine Bacteria Many Urine Mucus Not seen Meds: Medications Discontinued Medications Generic Name Dose Route Start Last Admin Trade Name Freq PRN Reason Stop Dose Admin Al Hydroxide/Mg Hydroxide 30 ml 07/11/20 18:19 07/11/20 18:22 Mag-Al Plus PO 07/11/20 18:20 30 ml ONETIME ONE Administration - Re-Assessments/Exams Free Text/Narrative Re-Assessment/Exam: 07/11/20 17:05 CBC, CMP and lipase were drawn as well as a UA. This appears to just be an increase in her gastritis which is chronic. 07/11/20 18:25 CBC was normal, CMP also relatively normal. UA was abnormal positive nitrite urine and many bacteria. A urine culture was initiated and the patient was given 30 cc of Maalox. 07/11/20 18:34 Maalox gave her fairly good relief of her burning and epigastric discomfort. I am going to have her increase her PPI to twice daily for the next 5 days, and put her on 5 days of Macrodantin to cover the UTI. She can recheck next week if not improving satisfactorily. Departure - Departure Time of Disposition: 18:56 Disposition: Home, Self-Care 01 Clinical Impression: Gastritis Qualifiers: Gastritis type: unspecified gastritis Chronicity: acute Gastritis bleeding: without bleeding Qualified Code(s): K29.00 - Acute gastritis without bleeding UTI (urinary tract infection) Qualifiers: Urinary tract infection type: acute cystitis Hematuria presence: without hematuria Qualified Code(s): N30.00 - Acute cystitis without hematuria - Discharge Information Instructions: Gastritis, Adult, [id number] Referrals: Kulwant Abraham NP [Primary Care Provider] - Forms: ED Department Discharge Care Plan Goals: Take your pantoprazole twice daily for the next 5 days, and take the antibiotic twice daily for 7 days. Liquid antacid may be beneficial in the short-term, and consider rechecking next week if not improving satisfactorily. You can return anytime if worsening or concerns. Sepsis Event Note (ED) - Evaluation Sepsis Screening Result: No Definite Risk - My Orders Last 24 Hours: My Active Orders 07/11/20 17:25 CULTURE URINE [RM] Stat - Assessment/Plan Last 24 Hours: My Active Orders 07/11/20 17:25 CULTURE URINE [RM] Stat
[2020-07-11 18:01] VITALS: BP 134/70; PULSE 63
[2020-07-11] MEDS ORDERED: Aluminum Hydroxide/Magnesium Hydroxide/Simethicone Susp 30 ML Cup PO ONE (18:19)
== END 2020-07-11 18:56 | disposition home or self-care (01) ==
LOC: JP.ED 15:51
DX: N30.00 Acute cystitis without hematuria (principal); K29.00 Acute gastritis without bleeding; I10 Essential (primary) hypertension; J45.909 Unspecified asthma, uncomplicated; K21.9 Gastro-esophageal reflux disease without esophagitis; E11.9 Type 2 diabetes mellitus without complications; Z91.048 Other nonmedicinal substance allergy status; Z79.899 Other long term (current) drug therapy
CPT/HCPCS: 36415; 80053; 81001; 83690; 85025; 87086; 87088; 87186; 99284; A9270; 99283

== ENCOUNTER 2020-07-25 08:14 | Day surgery (SDC) | payer MEDICARE ==
[~2020-07-25 08:14] MED LIST: COPPER IV ONE; Cyanocobalamin (Vitamin B12) 1,000 MCG/ML SDV IM ONE; Glycopyrrolate 0.2 MG/ML 2 ML SDV IVPUSH ONE; LACTATED RINGERS IV ONE; Lactated Ringers 1,000 ML IV ONE; MANGANESE IV ONE; MVI, Adult with Vitamin K 10 ML, Thiamine 200 MG, Chromium/Copper/Mang/Selen/Zn 1 ML in... IV ONE; Propofol 200 MG/20 ML SDV ONE; SELENIUM IV ONE; THIAMINE IV ONE; ZINC IV ONE; fentaNYL 100 MCG/2 ML SDV ONE
[2020-07-25] MEDS ORDERED: Lactated Ringers 1,000 ML IV ONE (09:00)
[2020-07-25] MEDS ORDERED: fentaNYL 100 MCG/2 ML SDV ONE (09:01)
[2020-07-25] MEDS ORDERED: Propofol 200 MG/20 ML SDV ONE (09:01)
[2020-07-25] MEDS ORDERED: Midazolam 1 MG/ML 2 ML SDV ONE (09:01)
[2020-07-25] MEDS ORDERED: Cyanocobalamin (Vitamin B12) 1,000 MCG/ML SDV IM ONE (09:30)
[2020-07-25] MEDS ORDERED: Glycopyrrolate 0.2 MG/ML 2 ML SDV IVPUSH ONE (09:30)
[2020-07-25] MEDS ORDERED: MVI, Adult with Vitamin K 10 ML, Thiamine 200 MG, Chromium/Copper/Mang/Selen/Zn 1 ML in... IV ONE ×4 (10:15)
[2020-07-25 12:11] VITALS: BP 119/73; PULSE 60
--- NOTE | 2020-07-31 17:33 | OR ---
DATE OF PROCEDURE: 07/25/2020 SURGEON: Brian Jones MD PREOPERATIVE DIAGNOSIS: Dysphagia referable to distal esophagus. POSTOPERATIVE DIAGNOSES: Dysphagia referable to distal esophagus with: 1. No stricturing along the esophagus or esophagogastric junction. 2. Mild to moderate esophageal dilation consistent with esophageal dysmotility. OPERATIVE PROCEDURE: Upper GI endoscopy. ANESTHESIA: IV sedation. INDICATIONS FOR PROCEDURE: A 75-year-old female, status post a Beverly-en-Y gastric bypass, followed by subsequent revision to esophagogastrectomy with Beverly-en-Y reconstruction, presenting with some dysphagia referable to the distal esophagus. In the past, she has had some stricturing in this area and plan is to proceed with upper GI endoscopy with dilation as indicated. Potential risks including bleeding and perforation were discussed, and the patient wishes to proceed. DETAILS OF PROCEDURE: The patient was taken to the operating room, placed in a left lateral decubitus position. IV sedation was administered, after which the upper GI endoscope was passed orally through the length of the esophagus through the gastrojejunostomy and roughly 20 cm into the Beverly limb. Findings included [id number] dilated esophagus initially. This was associated with small bowel retained saliva. No retained food was noted. Along the course of the esophagus, esophagojejunostomy, and Beverly limb, no stricturing was noted and the overall picture was suggestive of a problem with esophageal dysmotility. Scope was then withdrawn and the procedure then concluded. The patient was taken to the recovery room in satisfactory condition. At this point, we will have Dietary see the patient, but she should probably remain on soft liquid diet and soft solid diet with high protein calories and then switching her medication supplements to chewable forms as possible as she does complain of some dysphagia referable to large vitamins and supplements. She will be following up with Jessica Fitzgerald in [facility] in 1 month or as arranged. Brian Jones MD /[id number]
== END 2020-07-25 12:42 | disposition home or self-care (01) ==
LOC: JP.SDS 08:14
PROVIDERS: ATTEND Surgery
DX: R13.10 Dysphagia, unspecified (principal); K22.8 Other specified diseases of esophagus; I10 Essential (primary) hypertension; J45.909 Unspecified asthma, uncomplicated; E11.9 Type 2 diabetes mellitus without complications; Z98.84 Bariatric surgery status; I25.2 Old myocardial infarction; Z79.899 Other long term (current) drug therapy; Z91.048 Other nonmedicinal substance allergy status
CPT/HCPCS: 43235; J2704; J3010; J3411; J3420; J3490; J7120; J2250

== ENCOUNTER 2021-01-02 19:15 | Emergency (ER) | payer MEDICARE ==
[2021-01-02 19:45] VITALS: BP 143/77; PULSE 73
[2021-01-02] MEDS ORDERED: Cetirizine 10 MG Tab PO ONE (19:55)
--- NOTE | 2021-01-02 20:07 | EDM.PDOC ---
ED HPI GENERAL MEDICAL PROBLEM - General Chief Complaint: General Stated Complaint: EAR PAIN Time Seen by Provider: 01/02/21 19:47 Source of Information: Reports: Patient History Limitations: Reports: No Limitations - History of Present Illness INITIAL COMMENTS - FREE TEXT/NARRATIVE: Ludivina is a 75-year-old female presenting to the ED with concerns of decreased hearing and pounding in her ears. The patient wears hearing aids apparently has been having some serous drainage from her right ear and believes that she may have an infection in her left ear. She does have an allergy to pollen but has not been take anything for seasonal allergies. She has had significant rhinorrhea and nasal congestion. She denies any swimming. She has not had any fever, chills, cough or shortness of breath, sore throat or difficulty swallowing, nausea or vomiting, or diarrhea. - Related Data Allergies Allergy/AdvReac Type Severity Reaction Status Date / Time nickel Allergy Swelling Uncoded 01/02/21 19:46 pollen Allergy Difficulty Uncoded 01/02/21 19:46 Breathing Home Meds: Home Meds Pantoprazole Sodium [Protonix] 40 mg PO BID 11/20/17 [History] Cyanocobalamin/Cobamamide [Vitamin B-12 5,000 Mcg Tab Sl] 1,000 mcg SL DAILY 06/28/19 [History] Pediatric Multivit #31/Iron/Fa [Gnp Children's Chewables] 1 tab PO BID 11/10/19 [History] Zinc 50 mg PO DAILY 11/10/19 [History] Calcium Citrate/Vitamin D3 [Calcium Citrate - Vit D Caplet] 2 tab PO BID 11/12/19 [History] Magnesium Oxide 400 mg PO DAILY 07/03/20 [History] Potassium Chloride 20 meq PO DAILY 07/03/20 [History] lisinopriL [Prinivil] 20 mg PO DAILY 07/03/20 [History] traMADol [Ultram] 50 mg PO BID PRN 07/03/20 [History] Beta-Carotene [Beta Carotene] 25,000 unit PO DAILY 07/19/20 [History] Docusate Sodium/Sennosides [Senokot-S] 2 each PO BID 07/19/20 [History] Amylase/Lipase/Protease [[place] DR 24,000 Unit] 1 cap PO TID 07/31/20 [History] Meclizine [Antivert] 25 mg PO TID PRN 07/31/20 [History] Sucralfate 1 gm PO QID 07/31/20 [History] Triamcinolone Acetonide [Triamcinolone Acetonide 0.1% Crm] 1 applic TOP TID 07/31/20 [History] Trolamine Salicylate/Aloe Vera [Aspercreme 10% Cream] 1 applic TOP ASDIRECTED 07/31/20 [History] Vitamin A 25,000 units PO DAILY 07/31/20 [History] prednisoLONE Acetate [Prednisolone Acetate] 3 drop EARBOTH DAILY 07/31/20 [History] Past Medical History HEENT History: Reports: Cataract, Hard of Hearing, Impaired Vision Other HEENT History: reading glasses Cardiovascular History: Reports: High Cholesterol, Hypertension Respiratory History: Reports: Asthma Gastrointestinal History: Reports: Cholelithiasis, Chronic Constipation, GERD Genitourinary History: Reports: None 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 neck pain Psychiatric History: Reports: Depression Endocrine/Metabolic History: Reports: Diabetes, Type II Hematologic History: Reports: B12 Deficiency - Infectious Disease History Infectious Disease History: Reports: Chicken Pox - Past Surgical History HEENT Surgical History: Reports: Cataract Surgery, Other (See Below) Other HEENT Surgeries/Procedures: ear surgery Cardiovascular Surgical History: Reports: None Respiratory Surgical History: Reports: None GI Surgical History: Reports: Bariatric Procedure, Cholecystectomy, Colonoscopy, EGD, Other (See Below) Other GI Surgeries/Procedures: gastrectomy Female Surgical History: Reports: Hysterectomy, Salpingo-Oophorectomy Endocrine Surgical History: Reports: None Musculoskeletal Surgical History: Reports: Hip Replacement Other Musculoskeletal Surgeries/Procedures:: right hip Dermatological Surgical History: Reports: None Social & Family History - Family History Family Medical History: No Pertinent Family History - Tobacco Use Tobacco Use Status *Q: Never Tobacco User - Caffeine Use Caffeine Use: Reports: Coffee, Soda - Recreational Drug Use Recreational Drug Use: No ED ROS GENERAL - Review of Systems Review Of Systems: See Below Constitutional: Reports: No Symptoms HEENT: Reports: Ear Pain, Eye Discharge, Rhinitis Respiratory: Reports: No Symptoms Cardiovascular: Reports: No Symptoms Endocrine: Reports: No Symptoms GI/Abdominal: Reports: No Symptoms : Reports: No Symptoms Musculoskeletal: Reports: No Symptoms Skin: Reports: No Symptoms Neurological: Reports: No Symptoms Psychiatric: Reports: No Symptoms Hematologic/Lymphatic: Reports: No Symptoms Immunologic: Reports: No Symptoms ED EXAM, GENERAL - Physical Exam Exam: See Below Exam Limited By: No Limitations General Appearance: Alert, No Apparent Distress Eye Exam: Bilateral Eye: EOMI, PERRL Ear Exam: Right Ear: Discharge (Serous effusion), Left Ear: TM Red, TM Bulging, Bilateral Ear: Auricle Normal, Canal Normal Nose: Nasal Swelling, Nasal Drainage, Clear Rhinorrhea Throat/Mouth: Normal Inspection, Normal Lips, Normal Oropharynx, Normal Voice, No Airway Compromise Head: Atraumatic, Normocephalic Neck: Normal Inspection, Supple. No: Lymphadenopathy (R), Lymphadenopathy (L) Course - Vital Signs Last Recorded V/S: Last Vital Signs Temp 35.7 C L 01/02/21 19:46 Pulse 73 01/02/21 19:46 Resp 16 01/02/21 19:46 BP 143/77 H 01/02/21 19:46 Pulse Ox 95 01/02/21 19:46 - Re-Assessments/Exams Free Text/Narrative Re-Assessment/Exam: 01/02/21 20:07 it appears that Ludivina is suffering from allergic rhinitis causing nasal congestion and eustachian tube dysfunction which in turn is causing a se demian effusion with possible TM rupture on the right ear and an otitis media involving the left ear. We will put the patient on Augmentin 875 mg twice daily and I would like her to start taking cetirizine 10 mg daily for the allergic rhinitis. She may also need to add Flonase (fluconazole) to this if not improving with just the cetirizine. Departure - Departure Time of Disposition: 20:08 Disposition: Home, Self-Care 01 Clinical Impression: Acute effusion of left ear, Acute otitis media, right Allergic rhinitis Qualifiers: Allergic rhinitis trigger: pollen Allergic rhinitis seasonality: seasonal Qualified Code(s): J30.1 - Allergic rhinitis due to pollen Eustachian tube dysfunction Qualifiers: Laterality: bilateral Qualified Code(s): H69.83 - Other specified disorders of Eustachian tube, bilateral - Discharge Information Instructions: Eustachian Tube Dysfunction, Allergic Rhinitis, Adult, [id number], Otitis Media, Adult, [id number] Referrals: Kulwant Abraham NP [Primary Care Provider] - Care Plan Goals: For your left ear infection, we will start you on Augmentin 875 mg twice daily for 10 days. Your urine infection and drainage from the ears is due to your nasal allergies to pollen. I recommend starting [id number] Zyrtec otherwise known as cetirizine 10 mg daily to try to keep this under control. If that does not help I would add to that Flonase nasal spray 2 sprays in the nostr ils twice daily. Follow-up with your primary care provider in 1 week. Sepsis Event Note (ED) - Evaluation Sepsis Screening Result: No Definite Risk - Focused Exam Vital Signs: Vital Signs Temp Pulse Resp BP Pulse Ox 01/02/21 19:46 35.7 C L 73 16 143/77 H 95 01/02/21 19:44 35.7 C L 73 16 143/77 H 95 - Problem List & Annotations (1) Acute effusion of left ear SNOMED Code(s): 61002365, 7445614220606336 Code(s): H65.192 - OTHER ACUTE NONSUPPURATIVE OTITIS MEDIA, LEFT EAR Status: Acute Priority: Medium Current Visit: Yes (2) Acute otitis media, right SNOMED Code(s): 541410005 Code(s): H66.91 - OTITIS MEDIA, UNSPECIFIED, RIGHT EAR Status: Acute Priority: Medium Current Visit: Yes (3) Allergic rhinitis SNOMED Code(s): 87746609 Code(s): J30.9 - ALLERGIC RHINITIS, UNSPECIFIED Status: Chronic Priority: Medium Current Visit: Yes Qualifiers: Allergic rhinitis trigger: pollen Allergic rhinitis seasonality: seasonal Qualified Code(s): J30.1 - Allergic rhinitis due to pollen (4) Eustachian tube dysfunction SNOMED Code(s): 89623309 Code(s): H69.80 - OTH DISRD OF EUSTACHIAN TUBE, UNSPECIFIED EAR Status: Acute Priority: Medium Current Visit: Yes Qualifiers: Laterality: bilateral Qualified Code(s): H69.83 - Other specified disorders of Eustachian tube, bilateral - Problem List Review Problem List Initiated/Reviewed/Updated: Yes
== END 2021-01-02 20:43 | disposition home or self-care (01) ==
LOC: EEVIPCON 19:15 → JP.ED 19:15
DX: H65.03 Acute serous otitis media, bilateral (principal); J30.1 Allergic rhinitis due to pollen; E78.00 Pure hypercholesterolemia, unspecified; I10 Essential (primary) hypertension; E11.9 Type 2 diabetes mellitus without complications; K21.9 Gastro-esophageal reflux disease without esophagitis; Z79.899 Other long term (current) drug therapy; Z91.09 Other allergy status, other than to drugs and biological substances; Z91.048 Other nonmedicinal substance allergy status
CPT/HCPCS: 99283; A9270

== ENCOUNTER 2021-06-20 09:21 | Emergency (ER) | payer MEDICARE, MEDICAID ==
[2021-06-20 09:41] VITALS: BP 113/57; PULSE 78
--- NOTE | 2021-06-20 10:05 | EDM.PDOC ---
ED HPI GENERAL MEDICAL PROBLEM - General Chief Complaint: Back Pain or Injury Stated Complaint: SHOULDER PAIN Time Seen by Provider: 06/20/21 09:50 Source of Information: Reports: Patient History Limitations: Reports: No Limitations - History of Present Illness INITIAL COMMENTS - FREE TEXT/NARRATIVE: 76-year-old female with upper back and left posterior shoulder discomfort for the past month or more. It is making it difficult for her to sleep at night. It is not getting worse, it has just been persistent. It was not brought on by trauma, she has several other chronic pain syndromes. She has not talked to her primary care provider, has not tried physical therapy and has not had it evaluated. No fevers or chills, no cough or shortness of breath. Onset: Unknown/Unsure Duration: Chronic Location: Reports: Back (Upper back, left posterior shoulder area) Quality: Reports: Burning, Dull Associated Symptoms: Denies: Fever/Chills, Malaise, Shortness of Breath Upper Back Pain Score (Numeric/FACES): 3 - Related Data Allergies Allergy/AdvReac Type Severity Reaction Status Date / Time nickel Allergy Swelling Uncoded 06/20/21 09:42 pollen Allergy Difficulty Uncoded 06/20/21 09:42 Breathing Home Meds: Home Meds Pantoprazole Sodium [Protonix] 40 mg PO BID 11/20/17 [History] Cyanocobalamin/Cobamamide [Vitamin B-12 5,000 Mcg Tab Sl] 1,000 mcg SL DAILY 06/28/19 [History] Pediatric Multivit #31/Iron/Fa [Gnp Children's Chewables] 1 tab PO BID 11/10/19 [History] Zinc 50 mg PO DAILY 11/10/19 [History] Calcium Citrate/Vitamin D3 [Calcium Citrate - Vit D Caplet] 2 tab PO BID 11/12/19 [History] Magnesium Oxide 400 mg PO DAILY 07/03/20 [History] Potassium Chloride 20 meq PO DAILY 07/03/20 [History] lisinopriL [Prinivil] 20 mg PO DAILY 07/03/20 [History] traMADol [Ultram] 50 mg PO BID PRN 07/03/20 [History] Beta-Carotene [Beta Carotene] 25,000 unit PO DAILY 07/19/20 [History] Docusate Sodium/Sennosides [Senokot-S] 2 each PO BID 07/19/20 [History] Amylase/Lipase/Protease [Creon DR 24,000 Unit] 1 cap PO TID 07/31/20 [History] Meclizine [Antivert] 25 mg PO TID PRN 07/31/20 [History] Sucralfate 1 gm PO QID 07/31/20 [History] Triamcinolone Acetonide [Triamcinolone Acetonide 0.1% Crm] 1 applic TOP TID 07/31/20 [History] Trolamine Salicylate/Aloe Vera [Aspercreme 10% Cream] 1 applic TOP ASDIRECTED 07/31/20 [History] Vitamin A 25,000 units PO DAILY 07/31/20 [History] prednisoLONE Acetate [Prednisolone Acetate] 3 drop EARBOTH DAILY 07/31/20 [History] Past Medical History HEENT History: Reports: Cataract, Hard of Hearing, Impaired Vision Other HEENT History: reading glasses Cardiovascular History: Reports: High Cholesterol, Hypertension Respiratory History: Reports: Asthma Gastrointestinal History: Reports: Cholelithiasis, Chronic Constipation, GERD Genitourinary History: Reports: None RN GYNECOLOGY History: Reports: Musculoskeletal History: Reports: Back Pain, Chronic, Other (See Below) Other Musculoskeletal History: R knee pain in ED 03/18/19. neck pain Psychiatric History: Reports: Depression Endocrine/Metabolic History: Reports: Diabetes, Type II Hematologic History: Reports: B12 Deficiency - Infectious Disease History Infectious Disease History: Reports: Chicken Pox - Past Surgical History HEENT Surgical History: Reports: Cataract Surgery, Other (See Below) Other HEENT Surgeries/Procedures: ear surgery Cardiovascular Surgical History: Reports: None Respiratory Surgical History: Reports: None GI Surgical History: Reports: Bariatric Procedure, Cholecystectomy, Colonoscopy, EGD, Other (See Below) Other GI Surgeries/Procedures: gastrectomy Female Surgical History: Reports: Hysterectomy, Salpingo-Oophorectomy Endocrine Surgical History: Reports: None Musculoskeletal Surgical History: Reports: Hip Replacement Other Musculoskeletal Surgeries/Procedures:: right hip Dermatological Surgical History: Reports: None Social & Family History - Family History Family Medical History: No Pertinent Family History - Tobacco Use Tobacco Use Status *Q: Never Tobacco User - Caffeine Use Caffeine Use: Reports: Coffee, Soda - Recreational Drug Use Recreational Drug Use: No ED ROS GENERAL - Review of Systems Review Of Systems: See Below Constitutional: Denies: Fever, Chills HEENT: Reports: No Symptoms Respiratory: Denies: Shortness of Breath, Pleuritic Chest Pain Cardiovascular: Denies: Chest Pain GI/Abdominal: Reports: Other (Chronic reflux symptoms, none currently) : Reports: No Symptoms Musculoskeletal: Reports: Other (See HPI) Skin: Denies: Rash (No rash over painful area) Neurological: Denies: Paresthesia (Denies numbness down the left arm) ED EXAM, UPPER BACK/NECK PAIN - Physical Exam Exam: See Below Exam Limited By: No Limitations General Appearance: Alert, No Apparent Distress Eye Exam: Bilateral Eye: Normal Inspection Head Exam: Atraumatic Neck Exam: Non-Tender, Full Range of Motion Cardiovascular/Respiratory: Normal Breath Sounds Back Exam: Paraspinal Tenderness (She does have paraspinal tenderness to palp ation over the upper thoracic spine and over the rhomboid muscles on the left shoulder.) Extremities: Other (Normal range of motion of the left shoulder actively, she can place her hand behind her head) Neurologic: No Motor/Sensory Deficits, Oriented x 3 Psychiatric: Normal Affect, Normal Mood Skin Exam: Normal Color Course - Vital Signs Last Recorded V/S: Last Vital Signs Temp 97.0 F 06/20/21 09:41 Pulse 78 06/20/21 09:41 Resp 15 06/20/21 09:41 BP 113/57 L 06/20/21 09:41 Pulse Ox 99 06/20/21 09:41 - Orders/Labs/Meds Meds: Medications Discontinued Medications Generic Name Dose Route Start Last Admin Trade Name Freq PRN Reason Stop Dose Admin Ketorolac Tromethamine 10 mg 06/20/21 10:45 06/20/21 10:55 Ketorolac 10 Mg Tab PO 06/20/21 10:46 10 mg ONETIME ONE Administration - Re-Assessments/Exams Free Text/Narrative Re-Assessment/Exam: 06/20/21 10:05 Thoracic spine x-ray was obtained. 06/20/21 10:48 X-rays show significant diffuse arthritic changes as well as a likely chronic compression fractures in the upper thoracic spine. Radiology confirmation is pending. No acute findings. Patient was given 10 mg of oral Toradol, and 10 additional doses to take twice daily over the next 5 days. An appointment was set up to see Kulwant Abraham in the clinic next week to discuss long-term therapy options such as physical therapy, spinal injections or chronic pain consultations. Departure - Departure Time of Disposition: 11:04 Disposition: Home, Self-Care 01 Clinical Impression: Upper back pain on left side Degenerative arthritis of thoracic spine Qualifiers: Spinal osteoarthritis complication: without myelopathy or radiculopathy Qualified Code(s): M47.814 - Spondylosis without myelopathy or radiculopathy, thoracic region - Discharge Information Instructions: Chronic Back Pain, [id number] Referrals: Kulwant Abraham [employer] [Primary Care Provider] - Forms: ED Department Discharge Care Plan Goals: Try ketorolac twice daily for the next 5 days as prescribed instead of ibu profen, and continue your tramadol and other medications as prescribed. Activity as tolerated, and recheck with Kulwant Abraham next week at 1:30 to discuss longer term treatment options. Sepsis Event Note (ED) - Evaluation Sepsis Screening Result: No Definite Risk - Focused Exam Vital Signs: Vital Signs Temp Pulse Resp BP Pulse Ox 06/20/21 09:41 97.0 F 78 15 113/57 L 99 06/20/21 09:39 97.0 F 78 15 113/57 L 99
[2021-06-20] MEDS ORDERED: Ketorolac 10 MG Tab PO ONE (10:45)
--- NOTE | 2021-06-20 11:30 | CR ---
Thoracic Spine 3V CLINICAL HISTORY: Upper back pain FINDINGS: There is minimal compression deformities of T10 and T11. There is a mild compression of T5. Chronology of these compressions is uncertain There is moderate diffuse osteophytosis. The pedicles are unremarkable. There is a mild scoliotic curvature of the lower thoracic spine to the right. Bones are osteoporotic. IMPRESSION: Severe diffuse degenerative disc disease with moderate spondylosis Mild compression deformities of T5 T10 and T11 of uncertain chronology Osteoporosis Osteoarthritis
== END 2021-06-20 11:04 | disposition home or self-care (01) ==
LOC: JP.ED 09:21
DX: M47.814 Spondylosis without myelopathy or radiculopathy, thoracic region (principal); I10 Essential (primary) hypertension; J45.909 Unspecified asthma, uncomplicated; K21.9 Gastro-esophageal reflux disease without esophagitis; E11.9 Type 2 diabetes mellitus without complications; Z91.048 Other nonmedicinal substance allergy status; Z79.899 Other long term (current) drug therapy
CPT/HCPCS: 72072; 99283; A9270; 99285

== ENCOUNTER 2021-07-14 06:56 | Emergency (ER) | payer MEDICARE, MEDICAID ==
[2021-07-14 07:13] VITALS: BP 124/62; PULSE 78
[2021-07-14] MEDS ORDERED: Sodium Chloride 0.9% 10 ML Syringe FLUSH PRN (07:41)
[2021-07-14] MEDS ORDERED: cefTRIAXone 1 GM in Sodium Chloride 0.9% 50 ML IV ONE (07:42)
[2021-07-14] MEDS ORDERED: diphenhydrAMINE 25 MG Cap PO ONE (08:42)
[2021-07-14] MEDS ORDERED: Bacitracin Oint 1 GM U/D Packet TOP ONE (08:48)
== END 2021-07-14 09:12 | disposition home or self-care (01) ==
LOC: JP.ED 06:56
DX: L03.211 Cellulitis of face (principal); E78.00 Pure hypercholesterolemia, unspecified; I10 Essential (primary) hypertension; E11.9 Type 2 diabetes mellitus without complications; K21.9 Gastro-esophageal reflux disease without esophagitis; Z91.048 Other nonmedicinal substance allergy status; Z79.899 Other long term (current) drug therapy
CPT/HCPCS: 36415; 80053; 85025; 96365; 99283; A9270; J0696

== ENCOUNTER 2021-10-04 17:32 | Emergency (ER) | payer MEDICARE, MEDICAID ==
[2021-10-04 17:50] VITALS: BP 136/58; PULSE 60
== END 2021-10-04 20:25 | disposition home or self-care (01) ==
LOC: JP.ED 17:32
DX: R60.0 Localized edema (principal); E83.51 Hypocalcemia; E88.09 Other disorders of plasma-protein metabolism, not elsewhere classified; D64.9 Anemia, unspecified; E78.00 Pure hypercholesterolemia, unspecified; I10 Essential (primary) hypertension; E11.9 Type 2 diabetes mellitus without complications; K21.9 Gastro-esophageal reflux disease without esophagitis; Z91.048 Other nonmedicinal substance allergy status; Z79.899 Other long term (current) drug therapy; Z87.891 Personal history of nicotine dependence
CPT/HCPCS: 36415; 80053; 81001; 83880; 84443; 85025; 86140; 93971-26-LT; 93971-LT; 99283; 99284-25

== ENCOUNTER 2021-12-03 16:34 | Emergency (ER) | payer MEDICARE, MEDICAID ==
[2021-12-03] MEDS ORDERED: Ketorolac 30 MG/ML SDV IM ONE (17:39)
[2021-12-03 17:50] VITALS: BP 144/63; PULSE 64
[2021-12-03] MEDS ORDERED: Nitrofurantoin Monohydrate/Macrocrystalline 100 MG Cap PO ONE (18:02)
== END 2021-12-03 17:57 | disposition home or self-care (01) ==
LOC: JP.ED 16:34
DX: M54.6 Pain in thoracic spine (principal); N30.00 Acute cystitis without hematuria; E11.9 Type 2 diabetes mellitus without complications; I10 Essential (primary) hypertension; K21.9 Gastro-esophageal reflux disease without esophagitis; E78.00 Pure hypercholesterolemia, unspecified; Z79.899 Other long term (current) drug therapy; Z87.891 Personal history of nicotine dependence; Z91.048 Other nonmedicinal substance allergy status
CPT/HCPCS: 81001; 87086; 87088; 87186; 96372; 99283; J1885; A9270-GY

== ENCOUNTER 2021-12-17 14:38 | Emergency (ER) | payer MEDICARE, MEDICAID ==
[2021-12-17 15:00] VITALS: BP 128/50; PULSE 58
[2021-12-17] MEDS ORDERED: Ibuprofen 600 MG Tab PO ONE (16:18)
== END 2021-12-17 16:39 | disposition home or self-care (01) ==
LOC: JP.ED 14:38
DX: M54.50 Low back pain, unspecified (principal); M54.6 Pain in thoracic spine; I10 Essential (primary) hypertension; E78.00 Pure hypercholesterolemia, unspecified; E11.9 Type 2 diabetes mellitus without complications; K21.9 Gastro-esophageal reflux disease without esophagitis; Z88.8 Allergy status to other drugs, medicaments and biological substances; Z79.899 Other long term (current) drug therapy
CPT/HCPCS: 81001; 99282; 99283; A9270-GY

== ENCOUNTER 2022-02-07 09:43 | Emergency (ER) | payer MEDICARE, MEDICAID ==
[2022-02-07 09:57] VITALS: BP 161/72; PULSE 54
[2022-02-07] MEDS ORDERED: Ketorolac 30 MG/ML SDV IM ONE (11:49)
[2022-02-07] MEDS ORDERED: Acetaminophen/oxyCODONE 325-5 MG Tab PO ONE (11:50)
[2022-02-07 12:19] LABS: ESTIMATED GFR 96 mL/min (>60)
== END 2022-02-07 15:43 | disposition home or self-care (01) ==
LOC: JP.ED 09:43
DX: S22.080A Wedge compression fracture of T11-T12 vertebra, initial encounter for closed fracture (principal); N30.00 Acute cystitis without hematuria; E78.00 Pure hypercholesterolemia, unspecified; I10 Essential (primary) hypertension; E11.9 Type 2 diabetes mellitus without complications; K21.9 Gastro-esophageal reflux disease without esophagitis; Z91.048 Other nonmedicinal substance allergy status; Z79.899 Other long term (current) drug therapy
CPT/HCPCS: 36415; 71046; 71100; 72128; 80053; 81001; 83550; 85025; 86140; 87086; 87088; 87186; 96372; 99283; 99284; A9270; J1885

== ENCOUNTER 2022-04-15 06:59 | Inpatient (IN) | payer MEDICARE ==
[2022-04-15] MEDS ORDERED: Bupivacaine 0.5% 50 ML MDV ONE (07:09)
[2022-04-15] MEDS ORDERED: Lidocaine 1% with EPINEPHrine 1:100,000 50 ML MDV ONE (07:09)
[2022-04-15] MEDS ORDERED: Rocuronium 50 MG/5 ML Vial ONE (07:53)
[2022-04-15] MEDS ORDERED: Neostigmine Methylsulfate 1 MG/ML 5 ML Syringe ONE (07:53)
[2022-04-15] MEDS ORDERED: Succinylcholine 200 MG/10 ML MDV ONE (07:53)
[2022-04-15] MEDS ORDERED: Propofol 200 MG/20 ML SDV ONE (07:53)
[2022-04-15] MEDS ORDERED: Glycopyrrolate 0.2 MG/ML 5 ML MDV ONE (07:53)
[2022-04-15] MEDS ORDERED: Dexamethasone 4 MG/ML SDV ONE (07:53)
[2022-04-15] MEDS ORDERED: Ondansetron 4 MG/2 ML SDV ONE (07:53)
[2022-04-15] MEDS ORDERED: fentaNYL 100 MCG/2 ML SDV ONE (07:53)
[2022-04-15] MEDS ORDERED: Dextrose 5%-Lactated Ringers 1,000 ML IV SCH ×2 (08:00→14:15)
[2022-04-15] MEDS ORDERED: Acetaminophen 500 MG Tab PO ONE (08:00)
[2022-04-15] MEDS ORDERED: Naloxone 0.4 MG/ML SDV IV PRN (09:00)
[2022-04-15] MEDS ORDERED: cefOXitin 2 GM in Sodium Chloride 0.9% 50 ML IV ONE (09:00)
[2022-04-15] MEDS ORDERED: HYDROmorphone/Normal Saline 6 MG/30 ML PCA Vial IV PRN (09:02)
[2022-04-15 09:21] LABS: ESTIMATED GFR 91 mL/min (>60)
[2022-04-15] MEDS ORDERED: Ketamine 500 MG/5 ML MDV IV SCH (10:00)
[2022-04-15] MEDS ORDERED: Ketamine 17 MG in Sodium Chloride 0.9% 19.83 ML IV SCH (10:00)
[2022-04-15] MEDS ORDERED: Meropenem 500 MG SDV ONE (10:47)
[2022-04-15] MEDS ORDERED: Ketoconazole 2% Crm 30 GM Tube ONE (11:09)
[2022-04-15] MEDS ORDERED: Ketorolac 30 MG/ML SDV ONE (12:13)
[2022-04-15] MEDS ORDERED: hydrOXYzine HCL 100 MG/2 ML SDV IM PRN (15:00)
[2022-04-15] MEDS ORDERED: Ondansetron 4 MG/2 ML SDV IVPUSH PRN (15:00)
[2022-04-15] MEDS: Celecoxib 200 MG Cap PO SCH (20:07)
[2022-04-15] MEDS: Ketoconazole 2% Crm 30 GM Tube TOP SCH (20:08)
[2022-04-15] MEDS: ceFAZolin 1 GM in Premix Bag 1 BAG IV SCH (20:08)
[2022-04-16] MEDS: ceFAZolin 1 GM in Premix Bag 1 BAG IV SCH ×3 (01:46→17:51)
[2022-04-16] MEDS: Pantoprazole 40 MG Tab.CR PO SCH (07:47)
[2022-04-16] MEDS: Bisacodyl 5 MG Tab PO SCH ×2 (08:30→20:49)
[2022-04-16] MEDS: Celecoxib 200 MG Cap PO SCH ×2 (08:30→20:50)
[2022-04-16] MEDS: Furosemide 20 MG Tab PO SCH (08:30)
[2022-04-16] MEDS: Docusate Sodium 100 MG Cap PO SCH ×2 (08:31→20:50)
[2022-04-16] MEDS: Potassium Chloride 20 MEQ Tab.ER PO SCH (08:32)
[2022-04-16] MEDS: Lisinopril 20 MG Tab PO SCH (08:34)
[2022-04-16] MEDS: Ketoconazole 2% Crm 30 GM Tube TOP SCH ×2 (08:34→20:50)
[2022-04-16] MEDS: traMADol 50 MG Tab PO PRN ×2 (08:55→23:45)
[2022-04-17] MEDS: ceFAZolin 1 GM in Premix Bag 1 BAG IV SCH ×3 (02:25→17:12)
[2022-04-17 04:44] LABS: ESTIMATED GFR 91 mL/min (>60)
[2022-04-17] MEDS: Pantoprazole 40 MG Tab.CR PO SCH (07:20)
[2022-04-17] MEDS: Furosemide 20 MG Tab PO SCH (09:00)
[2022-04-17] MEDS: Docusate Sodium 100 MG Cap PO SCH ×2 (09:00→21:44)
[2022-04-17] MEDS: Bisacodyl 5 MG Tab PO SCH ×2 (09:00→21:44)
[2022-04-17] MEDS: Ciprofloxacin 500 MG Tab PO SCH ×2 (09:00→21:44)
[2022-04-17] MEDS: Potassium Chloride 20 MEQ Tab.ER PO SCH (09:00)
[2022-04-17] MEDS: Celecoxib 200 MG Cap PO SCH ×2 (09:00→21:44)
[2022-04-17] MEDS: Ketoconazole 2% Crm 30 GM Tube TOP SCH ×2 (09:01→21:45)
[2022-04-17] MEDS: Lisinopril 20 MG Tab PO SCH (09:01)
[2022-04-17] MEDS: traMADol 50 MG Tab PO PRN ×2 (10:25→21:42)
[2022-04-18] MEDS: ceFAZolin 1 GM in Premix Bag 1 BAG IV SCH ×2 (03:04→10:25)
[2022-04-18 06:44] VITALS: BP 140/73; PULSE 66
[2022-04-18] MEDS: Furosemide 20 MG Tab PO SCH (08:16)
[2022-04-18] MEDS: Ciprofloxacin 500 MG Tab PO SCH (08:16)
[2022-04-18] MEDS: Docusate Sodium 100 MG Cap PO SCH (08:16)
[2022-04-18] MEDS: Pantoprazole 40 MG Tab.CR PO SCH (08:16)
[2022-04-18] MEDS: Celecoxib 200 MG Cap PO SCH (08:16)
[2022-04-18] MEDS: Lisinopril 20 MG Tab PO SCH (08:17)
[2022-04-18] MEDS: Potassium Chloride 20 MEQ Tab.ER PO SCH (08:17)
[2022-04-18] MEDS: Ketoconazole 2% Crm 30 GM Tube TOP SCH (08:18)
[2022-04-18] MEDS: Bisacodyl 5 MG Tab PO SCH (08:19)
== END 2022-04-18 10:48 | disposition home health service (06) | DRG 580 ==
LOC: JP.SDSSCHI 06:59 → JP.SDS 06:59 → EDSTATUS 07:00 → JP.ICU 13:43 → JP.MS 04-17 21:50
PROVIDERS: ADMIT Surgery; ATTEND Physician Assistant Medical
PROC: 0KB90ZZ Excision of Right Lower Arm and Wrist Muscle, Open Approach (ICD-10-PCS; principal; 2022-04-15)
PROC: 07BD0ZZ Excision of Aortic Lymphatic, Open Approach (ICD-10-PCS; 2022-04-15)
DX: L02.413 Cutaneous abscess of right upper limb (principal); I96 Gangrene, not elsewhere classified; K90.9 Intestinal malabsorption, unspecified; M48.56XA Collapsed vertebra, not elsewhere classified, lumbar region, initial encounter for fracture; R59.9 Enlarged lymph nodes, unspecified; R63.4 Abnormal weight loss; Z98.84 Bariatric surgery status; E53.8 Deficiency of other specified B group vitamins; M50.30 Other cervical disc degeneration, unspecified cervical region; M51.36 Other intervertebral disc degeneration, lumbar region; M79.9 Soft tissue disorder, unspecified; Z68.22 Body mass index [BMI] 22.0-22.9, adult
CPT/HCPCS: 36415; 80053; 82607; 82728; 82746; 83615; 83735; 84100; 84443; 85027; 87015; 87070; 87075; 87077; 87102; 87116; 87186; 87205; 87206; 87220; 88305; 88307; 90662; A9270-GY; J0171; J0330; J0690; J0694; J1100; J1170; J1885; J2020; J2185; J2405; J2704; J2710; J2795; J3010; J3410; J3490; J7121; P9047; U0002

== ENCOUNTER 2022-04-20 19:48 | Emergency (ER) | payer MEDICARE ==
[2022-04-20 19:57] VITALS: BP 135/63; PULSE 70
== END 2022-04-20 22:01 | disposition home or self-care (01) ==
LOC: JP.ED 19:48
DX: S52.601A Unspecified fracture of lower end of right ulna, initial encounter for closed fracture (principal); S63.501A Unspecified sprain of right wrist, initial encounter; S70.01XA Contusion of right hip, initial encounter; I10 Essential (primary) hypertension; J45.909 Unspecified asthma, uncomplicated; K21.9 Gastro-esophageal reflux disease without esophagitis; E11.9 Type 2 diabetes mellitus without complications; Z91.048 Other nonmedicinal substance allergy status; Z79.899 Other long term (current) drug therapy; W23.0XXA Caught, crushed, jammed, or pinched between moving objects, initial encounter; Y93.01 Activity, walking, marching and hiking; Y92.59 Other trade areas as the place of occurrence of the external cause
CPT/HCPCS: 73110-RT; 73502-26-RT; 73502-RT; 99283

== ENCOUNTER 2022-06-12 17:02 | Emergency (ER) | payer MEDICARE ==
[2022-06-12 17:50] VITALS: BP 153/78; PULSE 62
== END 2022-06-12 19:01 | disposition home or self-care (01) ==
LOC: JP.ED 17:02
DX: N39.0 Urinary tract infection, site not specified (principal); E78.00 Pure hypercholesterolemia, unspecified; I10 Essential (primary) hypertension; E11.9 Type 2 diabetes mellitus without complications; Z91.048 Other nonmedicinal substance allergy status; Z79.899 Other long term (current) drug therapy
CPT/HCPCS: 81001; 87086; 87088; 87186; 99283

== ENCOUNTER 2023-01-11 15:31 | Emergency (ER) | payer MEDICARE ==
[2023-01-11 15:51] VITALS: BP 126/79; PULSE 99
[2023-01-11 15:51] LABS: APPEARANCE,URINE CLEAR (CLEAR); BILIRUBIN,URINE NEGATIVE (NEGATIVE); COLOR,URINE YELLOW (YELLOW); GLUCOSE,URINE NEGATIVE (NEGATIVE); KETONES,URINE NEGATIVE (NEGATIVE); LEUKOCYTE ESTERASE,URINE NEGATIVE (NEGATIVE); NITRITE,URINE NEGATIVE (NEGATIVE); OCCULT BLOOD,URINE SMALL (NEGATIVE); PH,URINE 6.5 (5.0-8.0); PROTEIN,URINE TRACE mg/dL (NEGATIVE)
[2023-01-11 16:02] LABS: AMORPHOUS SEDIMENT,URINE NOT SEEN; BACTERIA,URINE FEW; EPITHELIAL CELLS,URINE FEW; MUCUS,URINE RARE; WBC,URINE 0-5 (0-5)
[2023-01-11] MEDS ORDERED: Ketorolac 30 MG/ML SDV IM ONE (16:09)
[2023-01-11 16:20] LABS: BASOPHILS ABSOLUTE AUTO 0.03 K/uL (0.00-0.10); BASOPHILS PERCENT AUTO 0.5 % (0.1-1.3); EOSINOPHILS ABSOLUTE AUTO 0.03 K/uL (0.00-0.40); EOSINOPHILS PERCENT AUTO 0.5 % (0.0-5.4); HEMATOCRIT 30.9 % (34.3-46.0); HEMOGLOBIN 10.3 g/dL (11.2-15.5); IMMATURE GRAN PERCENT AUTO 0.2 % (0.0-0.7); LYMPHOCYTES ABSOLUTE AUTO 1.15 K/uL (0.8-3.3); LYMPHOCYTES PERCENT AUTO 20.8 % (11.4-47.7); MEAN CORPUSCULAR HEMOGLOBIN 31.9 pg (31.6-35.5); MEAN CORPUSCULAR HGB CONC 33.3 g/dL (31.6-35.5); MEAN CORPUSCULAR VOLUME 95.7 fL (81.4-99.0); MONOCYTES ABSOLUTE AUTO 0.36 K/uL (0.20-0.90); MONOCYTES PERCENT AUTO 6.5 % (3.3-12.6); NEUTROPHILS ABSOLUTE AUTO 3.94 K/uL (1.0-7.6); NEUTROPHILS PERCENT AUTO 71.5 % (40.0-78.1); PLATELET COUNT,PLT 204 K/uL (130-375); RED BLOOD CELL COUNT 3.23 M/uL (3.77-5.24); WHITE BLOOD CELL COUNT,WBC 5.5 K/uL (3.2-11.0)
[2023-01-11 16:23] LABS: IMMATURE GRAN ABSOLUTE AUTO 0.01 K/uL (0.00-0.23)
[2023-01-11 16:41] LABS: ALANINE AMINOTRANSFERASE,ALT 18 U/L (12-78); ALBUMIN 2.8 g/dL (3.4-5.0); ALKALINE PHOSPHATASE 107 U/L (46-116); ASPARTATE AMNIOTRANSFERASE,AST 16 U/L (15-37); BILIRUBIN TOTAL 0.3 mg/dL (0.2-1.0); BLOOD UREA NITROGEN,BUN 15 mg/dL (7-18); CARBON DIOXIDE,CO2 25 mmol/L (21-32); CHLORIDE,CL 107 mmol/L (100-108); CREATININE 0.5 mg/dL (0.6-1.0); EST CRCL DRUG DOSING (CG) 65.53 mL/min; ESTIMATED GFR 95 mL/min (>60); GLUCOSE RANDOM 94 mg/dL (74-106); POTASSIUM,K 3.2 mmol/L (3.6-5.2); PROTEIN TOTAL,TP 6.1 g/dL (6.4-8.2); SODIUM,NA 140 mmol/L (140-148)
[2023-01-11 16:56] LABS: A/G RATIO 0.9 (1.2-2.2); ANION GAP 11.2 mmol/L (5.0-14.0)
== END 2023-01-11 17:15 | disposition home or self-care (01) ==
LOC: JP.ED 15:31
DX: N39.0 Urinary tract infection, site not specified (principal); I10 Essential (primary) hypertension; J45.909 Unspecified asthma, uncomplicated; E11.9 Type 2 diabetes mellitus without complications; Z79.899 Other long term (current) drug therapy; Z91.048 Other nonmedicinal substance allergy status
CPT/HCPCS: 36415; 80053; 81001; 83605; 85025; 96372; 99283; J1885

== ENCOUNTER 2023-09-15 17:56 | Emergency (ER) | payer MEDICARE ==
[2023-09-15 18:39] VITALS: BP 163/82; PULSE 67
[2023-09-15 18:39] LABS: BASOPHILS ABSOLUTE AUTO 0.05 K/uL (0.00-0.10); BASOPHILS PERCENT AUTO 0.7 % (0.1-1.3); EOSINOPHILS ABSOLUTE AUTO 0.03 K/uL (0.00-0.40); EOSINOPHILS PERCENT AUTO 0.4 % (0.0-5.4); HEMATOCRIT 36.8 % (34.3-46.0); HEMOGLOBIN 12.2 g/dL (11.2-15.5); IMMATURE GRAN PERCENT AUTO 0.1 % (0.0-0.7); LYMPHOCYTES ABSOLUTE AUTO 1.63 K/uL (0.8-3.3); LYMPHOCYTES PERCENT AUTO 23.5 % (11.4-47.7); MEAN CORPUSCULAR HEMOGLOBIN 30.4 pg (31.6-35.5); MEAN CORPUSCULAR HGB CONC 33.2 g/dL (31.6-35.5); MEAN CORPUSCULAR VOLUME 91.8 fL (81.4-99.0); MONOCYTES ABSOLUTE AUTO 0.33 K/uL (0.20-0.90); MONOCYTES PERCENT AUTO 4.8 % (3.3-12.6); NEUTROPHILS ABSOLUTE AUTO 4.89 K/uL (1.0-7.6); NEUTROPHILS PERCENT AUTO 70.5 % (40.0-78.1); PLATELET COUNT,PLT 222 K/uL (130-375); RED BLOOD CELL COUNT 4.01 M/uL (3.77-5.24); WHITE BLOOD CELL COUNT,WBC 6.9 K/uL (3.2-11.0)
[2023-09-15 18:41] LABS: IMMATURE GRAN ABSOLUTE AUTO 0.01 K/uL (0.00-0.23)
[2023-09-15 18:54] LABS: ANION GAP 9.8 mmol/L (5.0-14.0); CALCIUM 7.7 mg/dL (8.5-10.1); CREATININE 0.8 mg/dL (0.6-1.0); EST CRCL DRUG DOSING (CG) 48.43 mL/min; POTASSIUM,K 3.9 mmol/L (3.6-5.2)
[2023-09-15 19:17] LABS: APPEARANCE,URINE SLIGHTLY CLOUDY (CLEAR); BILIRUBIN,URINE NEGATIVE (NEGATIVE); COLOR,URINE YELLOW (YELLOW); GLUCOSE,URINE NEGATIVE (NEGATIVE); KETONES,URINE NEGATIVE (NEGATIVE); LEUKOCYTE ESTERASE,URINE SMALL (NEGATIVE); NITRITE,URINE POSITIVE (NEGATIVE); OCCULT BLOOD,URINE TRACE-LYSED (NEGATIVE); PROTEIN,URINE NEGATIVE (NEGATIVE)
[2023-09-15 19:19] LABS: CORONAVIRUS COVID-19 NAA NEGATIVE (NEGATIVE); INFLUENZA A NAA NEGATIVE (NEGATIVE); INFLUENZA B NAA NEGATIVE (NEGATIVE); RESPIRATORY SYNCYTIAL VIR NAA NEGATIVE (NEGATIVE)
[2023-09-15 19:23] LABS: AMORPHOUS SEDIMENT,URINE NOT SEEN; BACTERIA,URINE MANY; EPITHELIAL CELLS,URINE MODERATE; MUCUS,URINE NOT SEEN; WBC,URINE 20-30 (0-5)
[2023-09-15] MEDS ORDERED: cefTRIAXone 1 GM Vial IM ONE (20:30)
[2023-09-15] MEDS: cefTRIAXone 1 GM Vial IM ONE (20:43)
[2023-09-15] MEDS: Lidocaine 1% 50 ML MDV INJECT ONE (20:43)
== END 2023-09-15 21:27 | disposition home or self-care (01) ==
LOC: JP.ED 17:56
DX: N39.0 Urinary tract infection, site not specified (principal); I10 Essential (primary) hypertension; E78.00 Pure hypercholesterolemia, unspecified; E11.9 Type 2 diabetes mellitus without complications; Z88.8 Allergy status to other drugs, medicaments and biological substances; Z79.899 Other long term (current) drug therapy; Z86.19 Personal history of other infectious and parasitic diseases; Z90.49 Acquired absence of other specified parts of digestive tract
CPT/HCPCS: 0241U; 36415; 70450; 80048; 81001; 85025; 96372; 99285; J0696; J2001

== ENCOUNTER 2023-10-21 10:05 | Emergency (ER) | payer MEDICARE ==
[2023-10-21 10:27] VITALS: BP 129/65; PULSE 80
[2023-10-21] MEDS: fentaNYL 100 MCG/2 ML SDV IM ONE (11:38)
== END 2023-10-21 13:40 | disposition home or self-care (01) ==
LOC: JP.ED 10:05
DX: M54.50 Low back pain, unspecified (principal); I10 Essential (primary) hypertension; E78.00 Pure hypercholesterolemia, unspecified; E11.9 Type 2 diabetes mellitus without complications; K21.9 Gastro-esophageal reflux disease without esophagitis; Z90.49 Acquired absence of other specified parts of digestive tract; Z91.048 Other nonmedicinal substance allergy status; Z91.018 Allergy to other foods; Z79.899 Other long term (current) drug therapy; Z90.710 Acquired absence of both cervix and uterus
CPT/HCPCS: 72131; 76377; 96372; 99283; J3010; 99284

== ENCOUNTER 2023-12-03 08:11 | Inpatient (IN) | payer MEDICARE ==
[2023-12-03] MEDS: Nozin Nasal Sanitizer NASBOTH SCH ×2 (08:46→20:10)
[2023-12-03 09:09] LABS: RED BLOOD CELL COUNT 3.23 M/uL (3.77-5.24); WHITE BLOOD CELL COUNT,WBC 3.7 K/uL (3.2-11.0)
[2023-12-03 09:10] LABS: BASOPHILS ABSOLUTE AUTO 0.06 K/uL (0.00-0.10); BASOPHILS PERCENT AUTO 1.6 % (0.1-1.3); EOSINOPHILS ABSOLUTE AUTO 0.05 K/uL (0.00-0.40); EOSINOPHILS PERCENT AUTO 1.4 % (0.0-5.4); HEMATOCRIT 32.8 % (34.3-46.0); IMMATURE GRAN ABSOLUTE AUTO 0.01 K/uL (0.00-0.23); IMMATURE GRAN PERCENT AUTO 0.3 % (0.0-0.7); LYMPHOCYTES ABSOLUTE AUTO 0.89 K/uL (0.8-3.3); LYMPHOCYTES PERCENT AUTO 24.3 % (11.4-47.7); MEAN CORPUSCULAR HEMOGLOBIN 34.1 pg (31.6-35.5); MEAN CORPUSCULAR HGB CONC 33.5 g/dL (31.6-35.5); MEAN CORPUSCULAR VOLUME 101.5 fL (81.4-99.0); MONOCYTES ABSOLUTE AUTO 0.21 K/uL (0.20-0.90); MONOCYTES PERCENT AUTO 5.7 % (3.3-12.6); NEUTROPHILS ABSOLUTE AUTO 2.44 K/uL (1.0-7.6); NEUTROPHILS PERCENT AUTO 66.7 % (40.0-78.1); PLATELET COUNT,PLT 365 K/uL (130-375)
[2023-12-03 09:15] LABS: CREATININE 0.5 mg/dL (0.6-1.0); EST CRCL DRUG DOSING (CG) 89.32 mL/min; POTASSIUM,K 3.8 mmol/L (3.6-5.2)
[2023-12-03] MEDS: Lactated Ringers 1,000 ML IV SCH (09:44)
[2023-12-03] MEDS ORDERED: fentaNYL 100 MCG/2 ML SDV ONE (10:21)
[2023-12-03] MEDS ORDERED: Propofol 200 MG/20 ML SDV ONE ×2 (10:21→11:36)
[2023-12-03] MEDS ORDERED: Midazolam 1 MG/ML 2 ML SDV ONE (10:21)
[2023-12-03] MEDS: ceFAZolin 2 GM in Premix Bag 1 BAG IV ONE (10:35)
[2023-12-03] MEDS: Bupivacaine 0.5% 50 ML MDV ONE (11:06)
[2023-12-03] MEDS: TRANEXAMIC ACID IV ONE (11:25)
[2023-12-03] MEDS: SODIUM CHLORIDE 0.9% IV ONE (11:25)
[2023-12-03] MEDS ORDERED: Lactated Ringers 1,000 ML ONE (11:29)
[2023-12-03] MEDS ORDERED: oxyCODONE 5 MG Tab PO PRN (12:34)
[2023-12-03] MEDS ORDERED: Magnesium Hydroxide 400 MG/5 ML Susp 30 ML Cup PO PRN (12:36)
[2023-12-03] MEDS ORDERED: Ondansetron 4 MG/2 ML SDV IVPUSH PRN (12:36)
[2023-12-03] MEDS ORDERED: Trolamine Salicylate/Aloe Vera 10% Crm 85 GM Tube TOP SCH (12:45)
[2023-12-03] MEDS: Sodium Chloride 0.9% 1,000 ML IV SCH (13:33)
[2023-12-03] MEDS: oxyCODONE 5 MG Tab PO PRN (13:38)
[2023-12-03] MEDS ORDERED: Non-Formulary Medication 1 Each (Calcium Citrate/Vitamin D3 [Calcium Cit 315 Mg-D3 250 Uni PO SCH (14:00)
[2023-12-03] MEDS: Acetaminophen 325 MG Tab PO SCH (14:43)
[2023-12-03] MEDS: Sucralfate 1 GM Tab PO SCH (15:32)
[2023-12-03] MEDS: Ketorolac 30 MG/ML SDV IVPUSH PRN (15:38)
[2023-12-03] MEDS: ceFAZolin 2 GM in Premix Bag 1 BAG IV SCH (17:48)
[2023-12-03] MEDS: Morphine 2 MG/ML SYRINGE IVPUSH PRN (17:59)
[2023-12-03] MEDS: Oxybutynin 5 MG Tab PO SCH (20:10)
[2023-12-03] MEDS: Nystatin Crm 15 GM Tube TOP SCH (20:10)
[2023-12-03] MEDS: Pantoprazole 40 MG Tab.CR PO SCH (20:10)
[2023-12-03] MEDS: Multivitamins with Iron Tab.Chew PO SCH (20:10)
[2023-12-04] MEDS: Cyclobenzaprine 10 MG Tab PO PRN (01:02)
[2023-12-04] MEDS: Vitamin B Complex Tab PO SCH (09:53)
[2023-12-04] MEDS: Magnesium Oxide 400 MG Tab PO SCH (09:53)
[2023-12-04] MEDS: Cholecalciferol (Vitamin D3) 25 MCG Tab PO SCH (09:53)
[2023-12-04] MEDS: Vitamin A 10,000 Unit Cap PO SCH (09:55)
[2023-12-04] MEDS: Aspirin 325 MG Tab.EC PO SCH (09:55)
[2023-12-04] MEDS: Potassium Chloride 10 MEQ Cap.ER PO SCH (09:55)
[2023-12-04] MEDS: Cyanocobalamin (Vitamin B12) 1,000 MCG Tab SL SCH (09:55)
[2023-12-04] MEDS: Zinc Sulfate 220 MG Cap PO SCH (09:55)
[2023-12-04] MEDS: Lisinopril 10 MG Tab PO SCH (09:56)
[2023-12-04] MEDS: Furosemide 20 MG Tab PO SCH (09:56)
[2023-12-04] MEDS: Ferrous Fumarate/Vitamin C 200-125 MG Tab PO SCH (09:57)
[2023-12-04] MEDS ORDERED: oxyCODONE 5 MG Tab PO PRN (13:00)
[2023-12-04] MEDS: oxyCODONE 5 MG Tab PO PRN (14:00)
[2023-12-05] MEDS: Lisinopril 20 MG Tab PO SCH (08:21)
[2023-12-05] MEDS: Potassium Chloride 20 MEQ Tab.ER PO SCH (08:21)
[2023-12-05] MEDS: oxyCODONE 5 MG Tab PO PRN (18:16)
[2023-12-06] MEDS: Docusate Sodium 100 MG Cap PO PRN (09:07)
[2023-12-06 12:01] LABS: BASOPHILS PERCENT AUTO 0.2 % (0.1-1.3); EOSINOPHILS PERCENT AUTO 0.4 % (0.0-5.4); HEMATOCRIT 25.8 % (34.3-46.0); HEMOGLOBIN 8.4 g/dL (11.2-15.5); IMMATURE GRAN PERCENT AUTO 0.2 % (0.0-0.7); LYMPHOCYTES ABSOLUTE AUTO 0.39 K/uL (0.8-3.3); LYMPHOCYTES PERCENT AUTO 7.8 % (11.4-47.7); MEAN CORPUSCULAR HEMOGLOBIN 33.9 pg (31.6-35.5); MEAN CORPUSCULAR HGB CONC 32.6 g/dL (31.6-35.5); MONOCYTES ABSOLUTE AUTO 0.16 K/uL (0.20-0.90); MONOCYTES PERCENT AUTO 3.2 % (3.3-12.6); NEUTROPHILS ABSOLUTE AUTO 4.43 K/uL (1.0-7.6); NEUTROPHILS PERCENT AUTO 88.2 % (40.0-78.1); PLATELET COUNT,PLT 333 K/uL (130-375); RED BLOOD CELL COUNT 2.48 M/uL (3.77-5.24)
[2023-12-06 12:02] LABS: BASOPHILS ABSOLUTE AUTO 0.01 K/uL (0.00-0.10); EOSINOPHILS ABSOLUTE AUTO 0.02 K/uL (0.00-0.40); IMMATURE GRAN ABSOLUTE AUTO 0.01 K/uL (0.00-0.23)
[2023-12-06 15:02] LABS: A/G RATIO 0.4 (1.2-2.2); ALANINE AMINOTRANSFERASE,ALT 4 U/L (12-78); ALBUMIN 1.3 g/dL (3.4-5.0); ALKALINE PHOSPHATASE 310 U/L (46-116); ANION GAP 11.8 mmol/L (5.0-14.0); ASPARTATE AMNIOTRANSFERASE,AST 29 U/L (15-37); BILIRUBIN TOTAL 0.6 mg/dL (0.2-1.0); BLOOD UREA NITROGEN,BUN 17 mg/dL (7-18); CALCIUM 7.7 mg/dL (8.5-10.1); CARBON DIOXIDE,CO2 25 mmol/L (21-32); CHLORIDE,CL 105 mmol/L (100-108); CREATININE 0.7 mg/dL (0.6-1.0); EST CRCL DRUG DOSING (CG) 60.01 mL/min; ESTIMATED GFR 87 mL/min (>60); GLUCOSE RANDOM 129 mg/dL (74-106); POTASSIUM,K 3.8 mmol/L (3.6-5.2); SODIUM,NA 138 mmol/L (140-148)
[2023-12-06] MEDS: Sodium Chloride 0.9% 100 ML IV SCH (15:34)
[2023-12-06] MEDS: Iopamidol 755 Mg/ML 100 ML Bottle IV SCH (15:34)
[2023-12-06] MEDS: Sodium Chloride 0.9% 10 ML Syringe FLUSH PRN (15:35)
[2023-12-06] MEDS: Piperacillin/Tazobactam 4.5 GM in Sodium Chloride 0.9% 100 ML IV ONE (16:20)
[2023-12-06] MEDS: Levofloxacin/Dextrose 5%-Water 750 MG in Premix Bag 1 BAG IV SCH (17:12)
[2023-12-06] MEDS: Furosemide 20 MG/2 ML VIAL IVPUSH ONE (17:12)
[2023-12-06 17:29] LABS: APPEARANCE,URINE CLEAR (CLEAR); BILIRUBIN,URINE NEGATIVE (NEGATIVE); COLOR,URINE YELLOW (YELLOW); GLUCOSE,URINE NEGATIVE (NEGATIVE); KETONES,URINE NEGATIVE (NEGATIVE); LEUKOCYTE ESTERASE,URINE MODERATE (NEGATIVE); NITRITE,URINE POSITIVE (NEGATIVE); OCCULT BLOOD,URINE TRACE-INTACT (NEGATIVE); PH,URINE 8.5 (5.0-8.0); PROTEIN,URINE NEGATIVE (NEGATIVE)
[2023-12-06 17:35] LABS: AMORPHOUS SEDIMENT,URINE NOT SEEN; BACTERIA,URINE MANY; EPITHELIAL CELLS,URINE FEW; MUCUS,URINE NOT SEEN
[2023-12-06] MEDS: Piperacillin/Tazobactam 4.5 GM in Sodium Chloride 0.9% 100 ML IV SCH (20:07)
[2023-12-07 05:30] LABS: HEMATOCRIT 22.5 % (34.3-46.0); HEMOGLOBIN 7.1 g/dL (11.2-15.5); MEAN CORPUSCULAR HEMOGLOBIN 32.9 pg (31.6-35.5); MEAN CORPUSCULAR HGB CONC 31.6 g/dL (31.6-35.5); MEAN CORPUSCULAR VOLUME 104.2 fL (81.4-99.0); RED BLOOD CELL COUNT 2.16 M/uL (3.77-5.24); WHITE BLOOD CELL COUNT,WBC 5.3 K/uL (3.2-11.0)
[2023-12-07 05:45] LABS: ANION GAP 7.9 mmol/L (5.0-14.0); CALCIUM 7.6 mg/dL (8.5-10.1); CREATININE 0.6 mg/dL (0.6-1.0); EST CRCL DRUG DOSING (CG) 70.01 mL/min; MAGNESIUM 1.6 mg/dL (1.8-2.4); POTASSIUM,K 3.6 mmol/L (3.6-5.2)
[2023-12-07] MEDS: cefTRIAXone 1 GM in Sodium Chloride 0.9% 50 ML IV SCH (09:46)
[2023-12-07] MEDS: oxyCODONE 5 MG Tab PO PRN (09:46)
[2023-12-07] MEDS: Magnesium Oxide 400 MG Tab PO SCH (11:25)
[2023-12-07] MEDS: Furosemide 40 MG/4 ML VIAL IVPUSH ONE (12:49)
[2023-12-07] MEDS: Magnesium Sulfate/Water 2 GM in Premix Bag 1 BAG IV SCH (15:33)
[2023-12-08 05:11] LABS: HEMATOCRIT 27.7 % (34.3-46.0); HEMOGLOBIN 8.9 g/dL (11.2-15.5); MEAN CORPUSCULAR HEMOGLOBIN 32.7 pg (31.6-35.5); MEAN CORPUSCULAR HGB CONC 32.1 g/dL (31.6-35.5); MEAN CORPUSCULAR VOLUME 101.8 fL (81.4-99.0); RED BLOOD CELL COUNT 2.72 M/uL (3.77-5.24); WHITE BLOOD CELL COUNT,WBC 4.7 K/uL (3.2-11.0)
[2023-12-08 05:30] LABS: ANION GAP 5.6 mmol/L (5.0-14.0); CALCIUM 7.7 mg/dL (8.5-10.1); CREATININE 0.6 mg/dL (0.6-1.0); EST CRCL DRUG DOSING (CG) 70.01 mL/min; POTASSIUM,K 3.6 mmol/L (3.6-5.2)
[2023-12-09 05:34] VITALS: BP 145/68; PULSE 63
[2023-12-09] MEDS: Cefdinir 300 MG Cap PO ONE (09:05)
== END 2023-12-09 11:00 | DRG 690 ==
LOC: JP.SDS 08:11 → JP.MS 12:36 → JP.SDS 12-04 11:37 → JP.MS 12-04 11:37
PROVIDERS: ADMIT Specialist; ATTEND Specialist
DX: N39.0 Urinary tract infection, site not specified (principal); E46 Unspecified protein-calorie malnutrition; I10 Essential (primary) hypertension; D50.9 Iron deficiency anemia, unspecified; K21.9 Gastro-esophageal reflux disease without esophagitis; M81.0 Age-related osteoporosis without current pathological fracture; M19.90 Unspecified osteoarthritis, unspecified site; M25.562 Pain in left knee; H91.90 Unspecified hearing loss, unspecified ear; E78.00 Pure hypercholesterolemia, unspecified; E11.9 Type 2 diabetes mellitus without complications; K59.09 Other constipation; J45.909 Unspecified asthma, uncomplicated; F32.A Depression, unspecified; D64.9 Anemia, unspecified; B96.89 Other specified bacterial agents as the cause of diseases classified elsewhere; E83.42 Hypomagnesemia; M40.05 Postural kyphosis, thoracolumbar region; L89.102 Pressure ulcer of unspecified part of back, stage 2; Z88.8 Allergy status to other drugs, medicaments and biological substances; Z90.710 Acquired absence of both cervix and uterus; Z98.51 Tubal ligation status; Z98.890 Other specified postprocedural states; Z98.41 Cataract extraction status, right eye; Z98.42 Cataract extraction status, left eye; Z96.641 Presence of right artificial hip joint; Z79.899 Other long term (current) drug therapy; Z68.22 Body mass index [BMI] 22.0-22.9, adult; Z96.652 Presence of left artificial knee joint
CPT/HCPCS: 01402-QZ; 36415; 36430; 71045; 71275; 73560-26-LT; 73560-LT; 73562-26-LT; 73562-LT; 80048; 80053; 81001; 83605; 83735; 84145; 85018; 85025; 85027; 86850; 86900; 86901; 86920; 86922; 87040; 87086; 87088; 87186; 93005; 97110-GO; 97110-GP; 97162-GP; 97165-GO; 97530-GP; 99232; A9270-GY; C1713; C1776; J0665; J0690; J0696; J1885; J1940; J1956; J2250; J2270; J2543; J2704; J3010; J3475; J3490; J7030; J7120; P9016; Q9967

== ENCOUNTER 2023-12-14 14:07 | Emergency (ER) | payer MEDICARE ==
[2023-12-14 15:48] LABS: BASOPHILS ABSOLUTE AUTO 0.06 K/uL (0.00-0.10); BASOPHILS PERCENT AUTO 1.1 % (0.1-1.3); EOSINOPHILS ABSOLUTE AUTO 0.05 K/uL (0.00-0.40); EOSINOPHILS PERCENT AUTO 0.9 % (0.0-5.4); HEMATOCRIT 31.1 % (34.3-46.0); HEMOGLOBIN 10.2 g/dL (11.2-15.5); IMMATURE GRAN ABSOLUTE AUTO 0.02 K/uL (0.00-0.23); IMMATURE GRAN PERCENT AUTO 0.4 % (0.0-0.7); LYMPHOCYTES ABSOLUTE AUTO 1.49 K/uL (0.8-3.3); LYMPHOCYTES PERCENT AUTO 26.9 % (11.4-47.7); MEAN CORPUSCULAR HEMOGLOBIN 32.7 pg (31.6-35.5); MEAN CORPUSCULAR HGB CONC 32.8 g/dL (31.6-35.5); MEAN CORPUSCULAR VOLUME 99.7 fL (81.4-99.0); MONOCYTES PERCENT AUTO 5.4 % (3.3-12.6); NEUTROPHILS ABSOLUTE AUTO 3.62 K/uL (1.0-7.6); NEUTROPHILS PERCENT AUTO 65.3 % (40.0-78.1); PLATELET COUNT,PLT 411 K/uL (130-375); RED BLOOD CELL COUNT 3.12 M/uL (3.77-5.24); WHITE BLOOD CELL COUNT,WBC 5.5 K/uL (3.2-11.0)
[2023-12-14 16:03] LABS: ANION GAP 10.7 mmol/L (5.0-14.0); CALCIUM 7.8 mg/dL (8.5-10.1); CREATININE 0.6 mg/dL (0.6-1.0); EST CRCL DRUG DOSING (CG) 70.01 mL/min; POTASSIUM,K 3.7 mmol/L (3.6-5.2)
[2023-12-14 16:08] LABS: INR 1.1; PTT,PARTIAL THROMBOPLSTIN TIME 40.5 sec (21.8-27.3)
[2023-12-14 17:45] VITALS: BP 174/81; PULSE 73
== END 2023-12-14 18:19 | disposition home or self-care (01) ==
LOC: JP.ED 14:07
DX: I87.302 Chronic venous hypertension (idiopathic) without complications of left lower extremity (principal); I10 Essential (primary) hypertension; K21.9 Gastro-esophageal reflux disease without esophagitis; E11.9 Type 2 diabetes mellitus without complications; Z90.49 Acquired absence of other specified parts of digestive tract; Z90.710 Acquired absence of both cervix and uterus; Z79.899 Other long term (current) drug therapy; Z91.048 Other nonmedicinal substance allergy status
CPT/HCPCS: 36415; 80048; 85025; 85379; 85610; 85730; 93971-LT; 99283; 99284

== ENCOUNTER 2024-09-01 14:01 | Emergency (ER) | payer MEDICARE ==
[2024-09-01 15:23] LABS: BASOPHILS ABSOLUTE AUTO 0.03 K/uL (0.00-0.10); BASOPHILS PERCENT AUTO 0.6 % (0.1-1.3); EOSINOPHILS ABSOLUTE AUTO 0.07 K/uL (0.00-0.40); EOSINOPHILS PERCENT AUTO 1.5 % (0.0-5.4); HEMATOCRIT 34.3 % (34.3-46.0); HEMOGLOBIN 11.3 g/dL (11.2-15.5); IMMATURE GRAN PERCENT AUTO 0.4 % (0.0-0.7); MEAN CORPUSCULAR HEMOGLOBIN 30.5 pg (31.6-35.5); MEAN CORPUSCULAR HGB CONC 32.9 g/dL (31.6-35.5); MEAN CORPUSCULAR VOLUME 92.7 fL (81.4-99.0); MONOCYTES ABSOLUTE AUTO 0.27 K/uL (0.20-0.90); MONOCYTES PERCENT AUTO 5.7 % (3.3-12.6); NEUTROPHILS ABSOLUTE AUTO 2.72 K/uL (1.0-7.6); NEUTROPHILS PERCENT AUTO 57.8 % (40.0-78.1); PLATELET COUNT,PLT 235 K/uL (130-375); WHITE BLOOD CELL COUNT,WBC 4.7 K/uL (3.2-11.0)
[2024-09-01 15:24] LABS: IMMATURE GRAN ABSOLUTE AUTO 0.02 K/uL (0.00-0.23)
[2024-09-01] MEDS: Acetaminophen/oxyCODONE 325-5 MG Tab PO PRN (15:24)
[2024-09-01 15:46] LABS: A/G RATIO 0.9 (1.2-2.2); ALANINE AMINOTRANSFERASE,ALT 16 U/L (12-78); ALKALINE PHOSPHATASE 108 U/L (46-116); ANION GAP 9.1 mmol/L (5.0-14.0); ASPARTATE AMNIOTRANSFERASE,AST 15 U/L (15-37); BILIRUBIN TOTAL 0.2 mg/dL (0.2-1.0); BLOOD UREA NITROGEN,BUN 15 mg/dL (7-18); CALCIUM 8.4 mg/dL (8.5-10.1); CARBON DIOXIDE,CO2 27 mmol/L (21-32); CHLORIDE,CL 108 mmol/L (100-108); CREATINE KINASE,CK 50 U/L (26-192); CREATININE 0.7 mg/dL (0.6-1.0); EST CRCL DRUG DOSING (CG) 47.56 mL/min; ESTIMATED GFR 87 mL/min (>60); GLUCOSE RANDOM 126 mg/dL (74-106); POTASSIUM,K 4.4 mmol/L (3.6-5.2); PROTEIN TOTAL,TP 6.3 g/dL (6.4-8.2); SODIUM,NA 144 mmol/L (140-148)
[2024-09-01 16:52] LABS: APPEARANCE,URINE CLOUDY (CLEAR); BILIRUBIN,URINE NEGATIVE (NEGATIVE); COLOR,URINE YELLOW (YELLOW); GLUCOSE,URINE NEGATIVE (NEGATIVE); KETONES,URINE NEGATIVE (NEGATIVE); LEUKOCYTE ESTERASE,URINE NEGATIVE (NEGATIVE); NITRITE,URINE POSITIVE (NEGATIVE); OCCULT BLOOD,URINE SMALL (NEGATIVE); PH,URINE 6.5 (5.0-8.0); PROTEIN,URINE NEGATIVE (NEGATIVE)
[2024-09-01 16:58] VITALS: BP 160/82; PULSE 56
[2024-09-01 17:01] LABS: AMORPHOUS SEDIMENT,URINE NOT SEEN; BACTERIA,URINE MANY; EPITHELIAL CELLS,URINE NOT SEEN; MUCUS,URINE NOT SEEN; WBC,URINE NOT SEEN (0-5)
== END 2024-09-01 17:10 | disposition home or self-care (01) ==
LOC: JP.ED 14:01
DX: S70.01XA Contusion of right hip, initial encounter (principal); I10 Essential (primary) hypertension; K21.9 Gastro-esophageal reflux disease without esophagitis; E11.9 Type 2 diabetes mellitus without complications; Z90.49 Acquired absence of other specified parts of digestive tract; Z90.710 Acquired absence of both cervix and uterus; Z79.899 Other long term (current) drug therapy; Z79.2 Long term (current) use of antibiotics; Z91.048 Other nonmedicinal substance allergy status; Z68.27 Body mass index [BMI] 27.0-27.9, adult; W19.XXXA Unspecified fall, initial encounter; Y92.000 Kitchen of unspecified non-institutional (private) residence as the place of occurrence of the external cause
CPT/HCPCS: 36415; 73502; 80053; 81001; 82550; 85025; 99283; A9270

== ENCOUNTER 2024-12-22 14:33 | Emergency (ER) | payer MEDICARE ==
[2024-12-22 16:04] VITALS: BP 181/84; PULSE 65
[2024-12-22 17:15] LABS: APPEARANCE,URINE CLOUDY (CLEAR); GLUCOSE,URINE NEGATIVE (NEGATIVE); OCCULT BLOOD,URINE TRACE-INTACT (NEGATIVE)
[2024-12-22 17:22] LABS: EPITHELIAL CELLS,URINE RARE
[2024-12-22] MEDS: Ketorolac 30 MG/ML SDV IM ONE (17:35)
== END 2024-12-22 19:13 | disposition home or self-care (01) ==
LOC: JP.ED 14:33
DX: M54.50 Low back pain, unspecified (principal); I10 Essential (primary) hypertension; J45.909 Unspecified asthma, uncomplicated; K21.9 Gastro-esophageal reflux disease without esophagitis; E11.9 Type 2 diabetes mellitus without complications; Z98.84 Bariatric surgery status; Z90.49 Acquired absence of other specified parts of digestive tract; Z90.710 Acquired absence of both cervix and uterus; Z91.048 Other nonmedicinal substance allergy status; Z79.899 Other long term (current) drug therapy
CPT/HCPCS: 81001; 96372; 99283; J1885

== ENCOUNTER 2025-05-25 13:35 | Emergency (ER) | payer MEDICARE ==
[2025-05-25] MEDS ORDERED: Sodium Chloride 0.9% 10 ML Syringe FLUSH PRN (14:32)
[2025-05-25 14:47] LABS: BASOPHILS ABSOLUTE AUTO 0.04 K/uL (0.00-0.10); BASOPHILS PERCENT AUTO 0.9 % (0.1-1.3); EOSINOPHILS ABSOLUTE AUTO 0.08 K/uL (0.00-0.40); EOSINOPHILS PERCENT AUTO 1.8 % (0.0-5.4); IMMATURE GRAN ABSOLUTE AUTO 0.01 K/uL (0.00-0.23); IMMATURE GRAN PERCENT AUTO 0.2 % (0.0-0.7); LYMPHOCYTES ABSOLUTE AUTO 1.33 K/uL (0.8-3.3); LYMPHOCYTES PERCENT AUTO 29.1 % (11.4-47.7); MONOCYTES ABSOLUTE AUTO 0.27 K/uL (0.20-0.90); MONOCYTES PERCENT AUTO 5.9 % (3.3-12.6); NEUTROPHILS ABSOLUTE AUTO 2.84 K/uL (1.0-7.6); NEUTROPHILS PERCENT AUTO 62.1 % (40.0-78.1); PLATELET COUNT,PLT 241 K/uL (130-375); RED BLOOD CELL COUNT 3.79 M/uL (3.77-5.24); WHITE BLOOD CELL COUNT,WBC 4.6 K/uL (3.2-11.0)
[2025-05-25 15:07] LABS: A/G RATIO 1.0 (1.2-2.2); ALANINE AMINOTRANSFERASE,ALT 20 U/L (12-78); ASPARTATE AMNIOTRANSFERASE,AST 15 U/L (15-37); BILIRUBIN TOTAL 0.3 mg/dL (0.2-1.0); BLOOD UREA NITROGEN,BUN 14 mg/dL (7-18); CARBON DIOXIDE,CO2 25 mmol/L (21-32); CHLORIDE,CL 109 mmol/L (100-108); CREATININE 0.6 mg/dL (0.6-1.0); EST CRCL DRUG DOSING (CG) 62.42 mL/min; ESTIMATED GFR 90 mL/min (>60); GLUCOSE RANDOM 174 mg/dL (74-106); POTASSIUM,K 3.4 mmol/L (3.6-5.2); PROTEIN TOTAL,TP 6.3 g/dL (6.4-8.2); SODIUM,NA 142 mmol/L (140-148)
[2025-05-25 15:42] LABS: APPEARANCE,URINE CLOUDY (CLEAR); GLUCOSE,URINE NEGATIVE (NEGATIVE); OCCULT BLOOD,URINE LARGE (NEGATIVE)
[2025-05-25] MEDS: Ondansetron 4 MG Tab.DIS PO ONE (15:56)
[2025-05-25] MEDS: Alum Hydrox/Mag Hydrox/Simeth 15 ML, Lidocaine 2% 15 ML PO ONE (15:56)
[2025-05-25 16:05] LABS: SQUAMOUS EPITHELIAL CELLS,UR FEW /HPF; UROTHELIAL CELLS,URINE NOT SEEN /HPF
[2025-05-25] MEDS: Potassium Chloride 20 MEQ Tab.ER PO ONE (17:11)
[2025-05-25 17:36] VITALS: BP 192/87; PULSE 58
[2025-05-25] MEDS: Potassium Chloride 20 MEQ Tab.ER ONE (17:37)
== END 2025-05-25 17:38 | disposition home or self-care (01) ==
LOC: JP.ED 13:35
DX: K52.9 Noninfective gastroenteritis and colitis, unspecified (principal); I10 Essential (primary) hypertension; E11.9 Type 2 diabetes mellitus without complications; J44.9 Chronic obstructive pulmonary disease, unspecified; K21.9 Gastro-esophageal reflux disease without esophagitis; M19.90 Unspecified osteoarthritis, unspecified site; Z79.899 Other long term (current) drug therapy; Z91.048 Other nonmedicinal substance allergy status; Z90.49 Acquired absence of other specified parts of digestive tract; Z90.710 Acquired absence of both cervix and uterus
CPT/HCPCS: 36415; 80053; 81001; 83605; 83690; 85025; 86140; 87086; 99284; A9270; Q0162

== ENCOUNTER 2025-06-03 07:55 | Emergency (ER) | payer MEDICARE ==
[2025-06-03 08:23] LABS: BASOPHILS ABSOLUTE AUTO 0.03 K/uL (0.00-0.10); BASOPHILS PERCENT AUTO 0.5 % (0.1-1.3); EOSINOPHILS PERCENT AUTO 0.3 % (0.0-5.4); IMMATURE GRAN PERCENT AUTO 0.3 % (0.0-0.7); LYMPHOCYTES ABSOLUTE AUTO 0.48 K/uL (0.8-3.3); LYMPHOCYTES PERCENT AUTO 7.7 % (11.4-47.7); MONOCYTES ABSOLUTE AUTO 0.32 K/uL (0.20-0.90); MONOCYTES PERCENT AUTO 5.1 % (3.3-12.6); NEUTROPHILS ABSOLUTE AUTO 5.40 K/uL (1.0-7.6); NEUTROPHILS PERCENT AUTO 86.1 % (40.0-78.1); PLATELET COUNT,PLT 223 K/uL (130-375); RED BLOOD CELL COUNT 4.09 M/uL (3.77-5.24); WHITE BLOOD CELL COUNT,WBC 6.3 K/uL (3.2-11.0)
[2025-06-03 08:25] LABS: EOSINOPHILS ABSOLUTE AUTO 0.02 K/uL (0.00-0.40); IMMATURE GRAN ABSOLUTE AUTO 0.02 K/uL (0.00-0.23)
[2025-06-03 08:36] LABS: APPEARANCE,URINE CLEAR (CLEAR); GLUCOSE,URINE NEGATIVE (NEGATIVE); OCCULT BLOOD,URINE MODERATE (NEGATIVE)
[2025-06-03 08:41] LABS: SQUAMOUS EPITHELIAL CELLS,UR RARE /HPF; UROTHELIAL CELLS,URINE NOT SEEN /HPF
[2025-06-03 08:46] LABS: A/G RATIO 0.9 (1.2-2.2); ALANINE AMINOTRANSFERASE,ALT 20 U/L (12-78); ASPARTATE AMNIOTRANSFERASE,AST 18 U/L (15-37); BILIRUBIN TOTAL 0.7 mg/dL (0.2-1.0); BLOOD UREA NITROGEN,BUN 10 mg/dL (7-18); CARBON DIOXIDE,CO2 27 mmol/L (21-32); CHLORIDE,CL 103 mmol/L (100-108); CREATININE 0.6 mg/dL (0.6-1.0); EST CRCL DRUG DOSING (CG) 62.42 mL/min; ESTIMATED GFR 90 mL/min (>60); GLUCOSE RANDOM 146 mg/dL (74-106); POTASSIUM,K 3.8 mmol/L (3.6-5.2); PROTEIN TOTAL,TP 6.6 g/dL (6.4-8.2); SODIUM,NA 139 mmol/L (140-148)
[2025-06-03] MEDS: Sodium Chloride 0.9% 10 ML Syringe FLUSH ONE (10:55)
[2025-06-03] MEDS: Iopamidol 612 MG/ML 100 ML Bottle IV SCH (10:55)
[2025-06-03] MEDS: Magnesium Citrate Solution 296 ML Bottle PO ONE (11:50)
[2025-06-03 12:00] VITALS: BP 182/90; PULSE 79
== END 2025-06-03 13:01 | disposition home or self-care (01) ==
LOC: JP.ED 07:55
DX: K59.00 Constipation, unspecified (principal); I10 Essential (primary) hypertension; E11.9 Type 2 diabetes mellitus without complications; J45.909 Unspecified asthma, uncomplicated; M19.90 Unspecified osteoarthritis, unspecified site; K21.9 Gastro-esophageal reflux disease without esophagitis; Z79.899 Other long term (current) drug therapy; Z88.8 Allergy status to other drugs, medicaments and biological substances; Z90.49 Acquired absence of other specified parts of digestive tract; Z90.710 Acquired absence of both cervix and uterus
CPT/HCPCS: 36415; 74176; 74178; 80053; 81001; 83605; 85025; 86140; 87428; 96360; 99284; A9270; J7030; Q9967